=== PATIENT | male | born 1975 | race Caucasian/White ===

== ENCOUNTER 2018-06-18 11:58 | Emergency (ER) | payer OTHER, SELFPAY ==
[2018-06-18 11:59] VITALS: BP 114/84; PULSE 120; RESP 18; TEMP 36.1; O2SAT 98; BMI 31.0
[2018-06-18] MEDS: Diphth,Pertuss(Acell),Tet Vac 0.5 ML Vial IM (13:11)
[2018-06-18] MEDS: Lidocaine/Epi/Tetracaine 50 ML 1 APPLIC TOPICAL (13:12)
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
[2018-06-18] MEDS: Cephalexin 250 MG Capsule 500 MG PO (16:00)
[2018-06-18 16:01] VITALS: PULSE 82; RESP 16; O2SAT 99
== END 2018-06-18 16:01 | disposition home or self-care (01) ==
PROVIDERS: Emergency Provider Emergency Medicine; Family Provider Family Medicine; PCP Family Medicine
DX: S61.411A Laceration without foreign body of right hand, initial encounter (principal); Y08.09XA Assault by strike by other specified type of sport equipment, initial encounter; Y93.9 Activity, unspecified; Y92.9 Unspecified place or not applicable; Y99.9 Unspecified external cause status; Z23 Encounter for immunization; I10 Essential (primary) hypertension; F17.200 Nicotine dependence, unspecified, uncomplicated
CPT/HCPCS: 12002; 90715; 99285

== ENCOUNTER 2019-02-20 23:29 | Emergency (ER) | payer OTHER, SELFPAY ==
[2019-02-20 23:30] VITALS: BP 129/93; PULSE 109; RESP 16; TEMP 37.3; O2SAT 99; BMI 31.0
--- NOTE | 2019-02-20 23:39 | ED.RN ---
FAMILY OF PT ASKED FOR WATER FOR THIS PT, REQUEST WAS DECLINED DUE TO NOT HAVING BEEN SEEN BY A PHYSICIAN YET
--- NOTE | 2019-02-21 00:02 | ED.VISSUMM ---
- ER Visit Summary Date of Service: 02/21/19 Chief Complaint: Back pain History of Present Illness: The patient is a 43 M with left lower back pain for the last for 5 days. Is been taking aspirin and baclofen. He states tonight he stood up from the sofa and had sudden worsening pain shooting down into his leg with some numbness. He states he is unable to walk on that leg currently. Patient was previously in pain management for back pain. He denies having any prior surgeries or injections. Physical Examination: Blood pressure is 120/93, temperature 99.2, heart rate 109, respiratory rate 16, pulse ox 99% on room air. The patient does smell of alcoholic beverage and admits to approximately 6 beers tonight. Head and neck examination unremarkable. Heart is regular rate and rhythm. Lung sounds are clear pedal and abdomen is soft and nontender. No palpable masses are noted. Back examination was no midline lumbar tenderness. He does have reproducible tenderness of the left lumbar paraspinal muscles. Lower extremity examination revealed decreased sensation to light touch on the left leg compared to right. He has strong distal pulses. Test Results: Emergency Department Course and Treatment: Patient was given 0.5 mg of Dilaudid along with 4 mg of Zofran. On repeat evaluation he is sitting upright. He is able to pull both feet up to put socks on. He feels much improved. He has baclofen at home that he will continue. He will be given a short course of Percocet along with prednisone to help with sciatica. Treatment Plan: [] Disposition: Discharge Impression: Sciatica This note was generated with [employer] dictation software. It may contain incorrect words, spelling, and punctuation that were not noted in review of the chart prior to signing ED Disposition - Plan for ED Patient: Disposition: Home or Assisted Living Instructions: ED Sciatica Prescriptions: Oxycodone HCl/Acetaminophen [Percocet 5/325] 1 tablet PO Q6H PRN PRN 3 Days #12 tablet PRN Reason: Pain Prednisone [Deltasone] 40 mg PO DAILY #10 tablet Referrals: Colin Santana MD [Primary Care Provider] - 1 Week if not improving
[2019-02-21] MEDS: Ondansetron 4 MG/2 ML Vial IV (00:05)
[2019-02-21] MEDS: HYDROmorphone 1 MG/ML Syringe 0.5 MG IV (00:05)
[2019-02-21] MEDS: 0.9% Normal Saline 1,000 ML 150 ML IV (00:05)
[2019-02-21 00:20] LABS: Absolute Lymphocyte Count 1.52 X10^3/ul (0.83-4.51); Absolute Neutrophil Count 3.5 X10^3/uL (2.0-7.7); Basophil# 0.04 X10^3/uL; Basophil% 0.7 % (0-1); Eosinophil# 0.06 X10^3/uL; Hematocrit 42.4 % (40-54); Lymphocyte # 1.52 X10^3/ul (4.0); Lymphocyte % 25.7 % (19-41); Mean Corp Hgb Conc 35.4 g/gl (32-36); Mean Corpuscular Hgb 31.8 pg (27.0-32.0); Mean Corpuscular Volume 89.8 fL (80-94); Mean Platelet Vol. 10.4 fl (6.2-12.0); Monocyte# 0.77 X10^3/uL; Neutrophil # 3.51 X10^3/uL (2.7-7.7); Neutrophil % 59.4 % (47-70); Platelet Count 181 K/mm3 (150-450); RBC Distribution Width CV 12.2 % (11.6-14.6); RBC Distribution Width SD 39.7 fl (35.1-43.9); Red Blood Count 4.72 M/mm3 (4.6-6.2); White Blood Count 5.9 K/mm3 (4.4-11.0)
[2019-02-21 00:21] LABS: POSITIVE COUNT NO; POSITIVE DIFFERENTIAL NO; POSITIVE MORPHOLOGY NO
[2019-02-21 00:35] LABS: Anion Gap 14 (5-15); BUN 13 mg/dL (7-18); BUN/Creat Ratio 14.3 RATIO (10-20); Calcium,Total 9.1 mg/dL (8.5-10.1); Chloride 106 mmol/L (98-107); Creatinine, Serum 0.91 mg/dL (0.70-1.30); EST Glomerular Filtration Rate 97 mL/min (>60); Est Glom Filt Rate - Afr Amer 118 mL/min (>60); Estimated Creatinine Clearance 105.75 ml/min; Glucose 106 mg/dL (74-106); Potassium 3.3 mmol/L (3.5-5.1); Sodium Level 143 mmol/L (136-145)
[2019-02-21 01:29] VITALS: BP 122/86; PULSE 101; RESP 19; O2SAT 96
[2019-02-21 02:11] VITALS: BP 126/80; PULSE 99; RESP 17; O2SAT 96
== END 2019-02-21 02:12 | disposition home or self-care (01) ==
PROVIDERS: Emergency Provider Emergency Medicine; Family Provider Family Medicine; PCP Family Medicine
DX: M54.42 Lumbago with sciatica, left side (principal); I10 Essential (primary) hypertension; Z72.0 Tobacco use; Z79.899 Other long term (current) drug therapy
CPT/HCPCS: 80048; 85025; 96361; 96374; 96375; 99285; J7030; A4216; J2405

== ENCOUNTER 2019-03-09 11:17 | Emergency (ER) | payer MEDICAID, SELFPAY ==
[2019-03-09 11:17] VITALS: BP 147/97; PULSE 120; RESP 20; TEMP 36.6; O2SAT 100; BMI 31.0
--- NOTE | 2019-03-09 11:34 | ED.VIS.GEN ---
History of Present Illness Chief Complaint: Back Detail of Chief Complaint: Back pain Informant: Patient, Family Onset: Weeks - 2.5 Current Severity: Severe Maximum Severity: Severe Associated Symptoms: Decreased sensation to light touch left leg Narrative: Patient presents with 2 and half week history of left lower back pain. Patient had previously been in pain management but denies history of injections or surgery. He was seen in the ER 2-1/2 weeks ago after standing from the sulfa and developing sudden pain to the left lower back shooting down the left leg. There is no direct injury. Patient improved with Dilaudid, Zofran, and steroids. He was discharged with Percocet and steroids. 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 He has had worsening pain since that time. He is on baclofen daily for spasm. He is reportedly scheduled to see his family doctor tomorrow. He has had no new injury to his back. He denies fever or chills. No problems with bowel or bladder control. Prior similar symptoms: Yes - Past Medical History (1) Back pain Status: Acute (2) HTN (hypertension) Status: Chronic (3) History of tobacco use Status: Chronic Past Medical History - Allergies and Home Meds Allergies/Adverse Reactions: Allergies No Known Allergies Allergy (Verified 06/18/18 12:01) Primary Care Physician: Colin Santana MD [Primary Care Provider] - Prior records reviewed: Yes Past Medical History: - - Reviewed Surgical History: no surgical history, - - Denies prior back surgery or injections. Lives: With Family Smoking Status: Current some day smoker - Family History Paternal Family History: Reports: Stroke Maternal Family History: Reports: Stroke, - - migraine Review of Systems General: Denies: Chills, Fever Cardiovascular: Denies: Chest pain, Palpitations Respiratory: Denies: Dyspnea, Cough Gastrointestinal: Denies: Abdominal pain, Nausea, Vomiting, Diarrhea Genitourinary: Denies: Dysuria, Hematuria Musculoskeletal: Reports: Back pain Neurological: Reports: Numbness Physical Exam Vital Signs/Narrative: Vital Signs Temp Pulse Resp BP Pulse Ox 03/09/19 11:17 97.9 F 120 H 20 H 147/97 H 100 Inital Vital Signs reviewed: Yes General: Well nourished, Well developed Eyes: Perrl Neck: Supple Cardiovascular: Regular rhythm, Tachycardia Respiratory: No distress, CTA bilaterally Abdomen: Soft, Nontender, Normal bowel sounds. Negative for: Pulsatile mass Back: - - No midline thoracic or lumbar tenderness. He has reproducible tenderness of the left sciatic notch. Extremities: Nontender, No edema Skin: Normal color, No rash, - - Strong distal pulses Neurological: Alert, - - Patient reports decreased sensation to light touch throughout the left leg. Patellar reflexes are 1+ bilaterally. Psychological: - - Anxious Diagnostic/Tx/Re-eval - Medical Decision Making Patient was initially given IM Dilaudid and prednisone here. After 1 hour pain was improved to an 8. Heart rate was improved. He was given a second dose of Dilaudid. At this time patient is able to stand at bedside and stretch his back. He will be given a prescription for Percocet and a prednisone taper. He will follow-up with his primary care physician tomorrow as scheduled. Advised him that he may require physical therapy for his back. ED Disposition - Plan for ED Patient: Disposition: Home or Assisted Living Instructions: BACK PAIN w/ SCIATICA Prescriptions: Oxycodone HCl/Acetaminophen [Percocet 5/325] 1 tablet PO Q6H PRN PRN 5 Days #20 tablet PRN Reason: Pain Prednisone 10 mg PO DAILY #63 tablet Referrals: Colin Santana MD [Primary Care Provider] - Keep Umair appointment
[2019-03-09] MEDS: predniSONE 20 MG Tablet 60 MG PO (11:45)
[2019-03-09] MEDS: HYDROmorphone 1 MG/ML Syringe IM ×2 (11:46→13:12)
[2019-03-09 12:53] VITALS: BP 128/89; PULSE 83; RESP 16; O2SAT 100
[2019-03-09 14:06] VITALS: BP 122/74; PULSE 78; RESP 16; O2SAT 99
== END 2019-03-09 14:07 | disposition home or self-care (01) ==
PROVIDERS: Emergency Provider Emergency Medicine; Family Provider Family Medicine; PCP Family Medicine
DX: M54.42 Lumbago with sciatica, left side (principal); I10 Essential (primary) hypertension; F17.200 Nicotine dependence, unspecified, uncomplicated; Z79.82 Long term (current) use of aspirin; Z79.899 Other long term (current) drug therapy
CPT/HCPCS: 96372; 99282

== ENCOUNTER 2020-04-16 13:27 | Inpatient (IN) | payer SELFPAY ==
[2020-04-16] VITALS (9 sets, daily range): BP systolic 121–144; BP diastolic 76–95; PULSE 68–110; RESP 16–22; TEMP 36.3–37.2; O2SAT 97–100; BMI 28.7; BMI 28.0
--- NOTE | 2020-04-16 13:42 | RAD_ITS ---
STUDY: X-RAY CHEST REASON FOR EXAM: Male, 45 years old. Dyspnea. Sternal chest pain. TECHNIQUE: Single AP portable view of the chest. COMPARISON: Comparison is made with prior study dated 03/11/2017. FINDINGS: EKG electrodes are seen. Mild increased markings in the lingular segment of the left upper lobe. This may represent an early infiltrate. There is no demonstrated pleural abnormality. Normal size heart. Normal mediastinum and yudith. Normal visualized pulmonary arteries. Normal visualized aortic arch and descending thoracic aorta. There are mild degenerative changes of the visualized thoracic spine. Normal visualized ribs, clavicles, and shoulders. There is no demonstrated abnormality of the visualized soft tissue structures of the upper abdomen. RAD/Chest 1 View (Portable) IMPRESSION: Mild increased markings in the lingular segment of the left upper lobe suggestive of possible early infiltrate. Electronically Signed: Hema Wilson, at 15:21 EDT , Service support ,
--- NOTE | 2020-04-16 13:43 | EKG12_ITS ---
Test Reason : SOB Blood Pressure : / mmHG Vent. Rate : 081 BPM Atrial Rate : 081 BPM P-R Int : 096 ms QRS Dur : 078 ms QT Int : 390 ms P-R-T Axes : 000 008 033 degrees QTc Int : 453 ms Sinus rhythm with short TX Otherwise normal ECG Confirmed by TAISHA FONTANA ([id number]), news assignment editor SHERICE MCCORD ([id number]) on 04/19/2020 10:24:30 AM Referred By: TAMAR Confirmed By:TAISHA FONTANA
--- NOTE | 2020-04-16 13:45 | ED.VIS.GEN ---
History of Present Illness Chief Complaint: Chest Pain Narrative: This patient is a 45-year-old male who had sudden onset shortness of breath nausea diaphoresis and dizziness. He denies chest pain. He has had diarrhea for about a week. He does complain of runny nose and cough today. He denies history of heart disease. He is treated for hypertension. He is an occasional alcohol drinker not a daily drinker. He states he has never been in alcohol withdrawal. Past Medical History - Allergies and Home Meds Allergies/Adverse Reactions: Allergies No Known Allergies Allergy (Verified 04/16/20 13:28) Primary Care Physician: Colin Santana MD [Primary Care Provider] - Past Medical History: - - Hypertension Surgical History: no surgical history, - - Denies prior back surgery or injections. Smoking Status: Current some day smoker - Family History Paternal Family History: Reports: Stroke Maternal Family History: Reports: Stroke, - - migraine Review of Systems All systems negative except as indicated General: Denies: Fever Eyes: Denies: Visual changes - bilaterally ENT: Denies: Bilateral ear pain Cardiovascular: Reports: - - Dizziness/near syncope. Denies: Chest pain Respiratory: Reports: Dyspnea, Cough Gastrointestinal: Reports: Nausea, Diarrhea. Denies: Abdominal pain, Vomiting Musculoskeletal: Denies: Myalgias, Arthralgias, Extremity Pain Skin: Denies: Rash Neurological: Denies: Headache Allergy: Denies: Uticaria Physical Exam Vital Signs/Narrative: Vital Signs Temp Pulse Resp BP Pulse Ox 04/16/20 13:29 98.6 F 92 22 H 144/95 H 97 Inital Vital Signs reviewed: Yes General: Well nourished Head: Normocephalic Eyes: EOMI ENT: Moist mucous membranes Neck: Supple Cardiovascular: Regular rhythm, Tachycardia Respiratory: No distress, CTA bilaterally Abdomen: Soft, Nontender, Nondistended Skin: Diaphoresis, - - Patient is markedly diaphoretic Neurological: Alert, Oriented x3, - - Patient does not have focal or lateralizing neurological deficits but a severe tremor is noted Psychological: - - Patient appears anxious Diagnostic/Tx/Re-eval Impressions Chest X-Ray 04/16/20 13:42 IMPRESSION: Mild increased markings in the lingular segment of the left upper lobe suggestive of possible early infiltrate. Electronically Signed: Hema Wilson, at 15:21 EDT , Service support , 04/16/20 13:42 Chest 1 View (Portable) [RAD] Stat Laboratory Results 04/16/20 04/16/20 04/16/20 13:35 13:35 13:35 WBC 4.6 RBC 4.58 L Hgb 15.0 Hct 43.5 MCV 95.0 H MCH 32.8 H MCHC 34.5 RDW Std Deviation 43.7 RDW Coeff of Raz 12.5 Plt Count 193 MPV 10.3 Immature Gran % (Auto) 0.200 Neut % (Auto) 63.4 Lymph % (Auto) 21.0 [place] % (Auto) 14.1 H Eos % (Auto) 0.2 Baso % (Auto) 1.1 H Absolute Neuts (auto) 2.9 Absolute Lymphs (auto) 0.97 Nucleated RBC % 0 PT 12.5 INR 1.0 APTT 25.5 Sodium 138 Potassium 3.6 Chloride 102 Carbon Dioxide 26.0 Anion Gap 10 BUN 7 Creatinine 0.80 Estim Creat Clear Calc 117.83 Est GFR (MDRD) Af Amer 135 Est GFR (MDRD) Non-Af 112 BUN/Creatinine Ratio 8.8 L Glucose 121 H Lactic Acid Calcium 9.7 Total Bilirubin 0.60 AST 163 H ALT 141 H Alkaline Phosphatase 58 Troponin I < 0.015 Total Protein 8.1 Albumin 4.6 Globulin 3.5 Albumin/Globulin Ratio 1.3 Lipase 177 Urine Opiates Screen Urine Methadone Screen Ur Barbiturates Screen Ur Phencyclidine Scrn Ur Amphetamines Screen U Methamphetamin-MDMA U Benzodiazepines Scrn Urine Cocaine Screen U Cannabinoids Screen Ur Drug Screen Comment Ethyl Alcohol 04/16/20 04/16/20 04/16/20 14:25 14:25 14:39 WBC RBC Hgb Hct MCV MCH MCHC RDW Std Deviation RDW Coeff of Raz Plt Count MPV Immature Gran % (Auto) Neut % (Auto) Lymph % (Auto) [place] % (Auto) Eos % (Auto) Baso % (Auto) Absolute Neuts (auto) Absolute Lymphs (auto) Nucleated RBC % PT INR APTT Sodium Potassium Chloride Carbon Dioxide Anion Gap BUN Creatinine Estim Creat Clear Calc Est GFR (MDRD) Af Amer Est GFR (MDRD) Non-Af BUN/Creatinine Ratio Glucose Lactic Acid 6.2 H* Calcium Total Bilirubin AST ALT Alkaline Phosphatase Troponin I Total Protein Albumin Globulin Albumin/Globulin Ratio Lipase Urine Opiates Screen NEGATIVE Urine Methadone Screen NEGATIVE Ur Barbiturates Screen NEGATIVE Ur Phencyclidine Scrn NEGATIVE Ur Amphetamines Screen NEGATIVE U Methamphetamin-MDMA NEGATIVE U Benzodiazepines Scrn NEGATIVE Urine Cocaine Screen NEGATIVE U Cannabinoids Screen POSITIVE H Ur Drug Screen Comment Ethyl Alcohol 8.0 - Medical Decision Making On initial presentation patient was markedly diaphoretic and tremulous. I considered acute alcohol withdrawal although the patient states he is not a daily drinker. He was given 2 mg of IV Ativan with marked improvement. Able initial EKG was limited due to artifact but showed no evidence of STEMI. Repeat EKG shows sinus rhythm with short MO no acute ischemic changes. Laboratory studies as above are notable for lactic acidosis of 6.2. Chest x-ray shows possible early infiltrate. COVID swab was ordered. Repeat lactic acid pending I have also ordered blood cultures and IV Levaquin. Patient was discussed with hospitalist. He asked that we repeat a lactic acid now and wants to wait on the COVID resolved before determining disposition to what unit. Patient will need to be signed out to the oncoming emergency physician pending final disposition plan per hospitalist. ED Disposition - Plan for ED Patient: Disposition: Acute Care Hospital [facility] Diagnosis: Lactic acidosis, Pneumonia, Diaphoresis Referrals: Colin Santana MD [Primary Care Provider] -
[2020-04-16 13:57] LABS: Absolute Lymphocyte Count 0.97 X10^3/uL (0.83-4.51); Absolute Neutrophil Count 2.9 X10^3/uL (2.0-7.7); Basophil# 0.05 X10^3/uL; Basophil% 1.1 % (0-1); Eosinophil# 0.01 X10^3/uL; Eosinophils% 0.2 % (0-5); Hematocrit 43.5 % (40-54); Lymphocyte # 0.97 X10^3/ul (4.0); Mean Corp Hgb Conc 34.5 g/dL (32-36); Mean Corpuscular Hgb 32.8 pg (27.0-32.0); Mean Platelet Vol. 10.3 fl (6.2-12.0); Monocyte# 0.65 X10^3/uL; Monocyte% 14.1 % (0-10); NRBC Flagged by Analyzer 0 % (0-5); Neutrophil # 2.93 X10^3/uL (2.7-7.7); Neutrophil % 63.4 % (47-70); Platelet Count 193 K/mm3 (150-450); RBC Distribution Width CV 12.5 % (11.6-14.6); RBC Distribution Width SD 43.7 fl (35.1-43.9); Red Blood Count 4.58 M/mm3 (4.6-6.2); White Blood Count 4.6 K/mm3 (4.4-11.0)
[2020-04-16] MEDS: LORazepam 2 MG/ML Syringe IV (14:04)
[2020-04-16] MEDS: 0.9% Normal Saline 1,000 ML 1000 ML IV (14:05)
[2020-04-16] MEDS: Ondansetron 4 MG/2 ML Vial IV (14:05)
[2020-04-16 14:06] LABS: Prothrombin Time (Protime)PT. 12.5 SECONDS (11.7-14.9)
[2020-04-16 14:07] LABS: Partial Thromboplast Time 25.5 Seconds (24.1-36.2)
[2020-04-16 14:15] LABS: ALB/GLOB Ratio 1.3 RATIO (0.9-2.4); AST(SGOT) 163 U/L (15-37); Alanine Aminotransfer ALT/SGPT 141 U/L (16-61); Albumin, Serum 4.6 g/dL (3.2-5.0); Alkaline Phosphatase 58 U/L (45-117); Anion Gap 10 (5-15); BUN 7 mg/dL (7-18); BUN/Creat Ratio 8.8 RATIO (10-20); Calcium,Total 9.7 mg/dL (8.5-10.1); Chloride 102 mmol/L (98-107); EST Glomerular Filtration Rate 112 mL/min (>60); Est Glom Filt Rate - Afr Amer 135 mL/min (>60); Estimated Creatinine Clearance 117.83 ml/min; Globulin 3.5 g/dL (2.2-4.2); Glucose 121 mg/dL (74-106); Lipase 177 U/L (73-393); Potassium 3.6 mmol/L (3.5-5.1); Protein, Total 8.1 g/dL (6.4-8.2); Sodium Level 138 mmol/L (136-145)
[2020-04-16 14:59] LABS: Lactic Acid 6.2 mmol/L (0.4-1.9)
[2020-04-16 15:02] LABS: Amphetamine Urine VISTA NEGATIVE (<1000 ng/mL); Barbiturate Urine VISTA NEGATIVE (< 200 ng/mL); Benzodiazepine Urine VISTA NEGATIVE (< 200 ng/mL); Cocaine Urine VISTA NEGATIVE (< 300 ng/mL); Ecstacy Urine VISTA NEGATIVE (< 500 ng/mL); Methadone Urine VISTA NEGATIVE (< 300 ng/mL); PCP Urine VISTA NEGATIVE (< 25 ng/mL); THC Urine VISTA POSITIVE (< 50 ng/mL); Vista UDS pH Range 7
--- NOTE | 2020-04-16 15:40 | NURSING ---
DR DEL VALLE FOR DR BOYLE
--- NOTE | 2020-04-16 15:58 | ED.RN ---
pt does admit to drinking at leat 2 bottles of vodka daily.
--- NOTE | 2020-04-16 16:04 | HP.PCM_ITS ---
<Chris Ortega - Last Filed: 04/16/20 16:04> Problem List (1) Alcohol withdrawal Status: Acute (2) Lactic acidosis Status: Chronic (3) HTN (hypertension) Status: Chronic Qualifiers: Hypertension type: essential hypertension Qualified Code(s): I10 - Essential (primary) hypertension (4) History of tobacco use Status: Chronic History of Present Illness Date of Admission: 04/16/20 Chief Complaint: chest pain The patient is a 45 year old M with pmhx of TIA and HTN who initially presented to the ER with c/o chest pain. 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 This was a sharp somewhat left of midsternal pain. It began this AM he is not sure when. He broke out in a sweat and severe tremors. He has had nausea and vomiting. While initially concern for chest pain, he later admitted that he had been drinking heavily. His son reported he was drinking multiple bottles of vodka daily tho he initially told the ER staff only 2-3 beers per day. He did admit that his son was correct. On ROS he also reports this week he has had nausea, vomiting (including today in the ER), diarrhea, lightheadedness, cough. No fever/chills. No sick contacts. He has a large bruise on his right arm that he states was from [place]. [] Past Medical History Past Medical History (Chronic Problems): Chronic Problems HTN (hypertension) (Chronic) History of tobacco use (Chronic) Allergies No Known Allergies Allergy (Verified 04/16/20 13:28) Home Medications: Ambulatory Orders Medication Instructions Recorded Amlodipine [Norvasc] 5 mg PO DAILY 08/02/13 Aspirin 325 mg PO DAILY@0800 07/21/16 Amlodipine [Norvasc] 2.5 mg PO DAILY 04/16/20 Sertraline HCl 100 mg PO DAILY 04/16/20 Surgical History: no surgical history, - - Denies prior back surgery or injections. Psychiatric History: No pertinent psych hx Lives: Alone Smoking Status: Current every day smoker - 6 cigarettes per day Tobacco Use: Non-smoker, Chew Alcohol: Heavy Drugs: Marijuana - *Family History Paternal History Items: Stroke Maternal History Items: Stroke, - - migraine Review of Systems Constitutional: Denies: Chills, Fever, Weight Change HEENT: Denies: Head Aches, Sinus Congestion, Sinus Drainage Cardiovascular: Reports: Chest Pain, Light Headedness. Denies: Heaviness, Palpitations, Syncope Respiratory: Reports: Cough, Shortness of Breath, Sputum production. Denies: Shortness of breath at rest Gastrointestinal: Reports: Diarrhea, Nausea, Vomiting. Denies: Abdominal Pain Genitourinary: Denies: Dysuria, Frequency, Urgency Musculoskeletal: Reports: - - RUE pain, bruising. Denies: Joint Pain, Joint Tenderness Skin: Denies: Lesions, Rash, Wounds Neurological: Reports: Tremor. Denies: Balance problems, Focal weakness, Headaches, Numbness, Tingling, Seizures Psychiatric: Denies: Anxiety, Depression, Homicidal Ideations, Suicidal Ideations Hematologic/ Lymphatic: Denies: Easy Bruising, Easy Bleeding VTE Information - Inpt Only VTE Present on Admission: No VTE Mechan Device Prophylaxis: None VTE Pharm Prophylaxis ordered?: Yes Patient Problems: Active and Suspected Problems Chest pain (Acute) Alcohol withdrawal (Acute) Lactic acidosis (Acute) - Physical Exam Vitals/I&O's: Vital Signs Temp Pulse Resp BP Pulse Ox 97.3 F L 73 16 124/76 H 98 04/16/20 15:13 04/16/20 15:13 04/16/20 15:13 04/16/20 15:13 04/16/20 15:13 Oxygen Delivery Method Room Air Weight: 194 lb 7.163 oz Body Mass Index (BMI) 28.7 Finger Stick Blood Glucose 92 General: Alert, Oriented x3, Cooperative HEENT: Atraumatic, PERRLA, EOMI, Normocephalic Neck: Supple, No JVD, Negative Carotid Bruits Lungs: Clear to auscultation, Normal air movement Cardiovascular: Regular rate, No murmurs Abdomen: Bowel Sounds Present, Soft, Non Tender Extremities: No edema, Capillary Refill Less than 3 Seconds Skin: No rashes, No breakdown Musculoskeletal: No Tenderness to Palpation of Joints or Extremities Neurological: Cranial nerves II-XII grossly intact, - - upper ext tremor Psych/Mental Status: Normal Affect, Alert and oriented to time, place, person, mood and affect Laboratory Results 04/16/20 13:35: WBC 4.6, RBC 4.58 L, Hgb 15.0, Hct 43.5, MCV 95.0 H, MCH 32.8 H, MCHC 34.5, RDW Std Deviation 43.7, RDW Coeff of Raz 12.5, Plt Count 193, MPV 10.3, Immature Gran % (Auto) 0.200, Neut % (Auto) 63.4, Lymph % (Auto) 21.0, [place] % (Auto) 14.1 H, Eos % (Auto) 0.2, Baso % (Auto) 1.1 H, Absolute Neuts (auto) 2.9, Absolute Lymphs (auto) 0.97, Nucleated RBC % 0 04/16/20 13:35: PT 12.5, INR 1.0, APTT 25.5 04/16/20 13:35: Sodium 138, Potassium 3.6, Chloride 102, Carbon Dioxide 26.0, Anion Gap 10, BUN 7, Creatinine 0.80, Estim Creat Clear Calc 117.83, Est GFR (MDRD) Af Amer 135, Est GFR (MDRD) Non-Af 112, BUN/Creatinine Ratio 8.8 L, Glucose 121 H, Calcium 9.7, Total Bilirubin 0.60, AST 163 H, ALT 141 H, Alkaline Phosphatase 58, Troponin I < 0.015, Total Protein 8.1, Albumin 4.6, Globulin 3.5, Albumin/Globulin Ratio 1.3, Lipase 177 04/16/20 14:25: Ethyl Alcohol 8.0 04/16/20 14:25: Lactic Acid 6.2 H* 04/16/20 14:39: Urine Opiates Screen NEGATIVE, Urine Methadone Screen NEGATIVE, Ur Barbiturates Screen NEGATIVE, Ur Phencyclidine Scrn NEGATIVE, Ur Amphetamines Screen NEGATIVE, U Methamphetamin-MDMA NEGATIVE, U Benzodiazepines Scrn NEGATIVE, Urine Cocaine Screen NEGATIVE, U Cannabinoids Screen POSITIVE H, Ur Drug Screen Comment Current Medications Sodium Chloride () 1,000 mls @ 999 mls/hr IV .Q1H1M ONE Stop: 04/16/20 16:30 Levofloxacin (Levaquin Iv) 750 mg in 150 mls @ 100 mls/hr IV X1 ONE Stop: 04/16/20 16:59 Sodium Chloride () 1,000 mls @ 999 mls/hr IV .Q1H1M ONE Stop: 04/16/20 16:31 Assessment/Plan All Active Problems Chest pain (Acute) Alcohol withdrawal (Acute) Lactic acidosis (Acute) 1. Alcoholism with acute withdrawal - drinking multiple bottles of vodka and beer daily. tremulous. EtOH neg. Initiate phenobarb taper, thiamine, folate, CIWA protocol. Suspect lactic acidosis 2/2 severe uncontrollable tremor, improving. Recheck LA. Tox screen shows THC. Lipase neg. 2. Chest pain - EKG sinus tachy. Trop neg. CXR possible PETER infiltrate but doubt pna with no fever/leukocytosis. Cycle enzymes, repeat EKG in AM. Get stress test if he is able to complete it. He has multiple risk factors including HTN, HLD, TIA, smoking hx 3. RUE hematoma 2/2 fall 4. Hx TIA - aspirin, not on statin 5. HTN - amlodipine 6. Nicotine abuse - 6 cigarettes per day. patch if desired. 7. Anx/Depression - zoloft. DVT ppx: lovenox DC planning: referral to 180 program This patient was seen by Chris Ortega PA-C under the supervision of Dr. Kaba <Abi Kaba E - Last Filed: 04/16/20 16:42> History of Present Illness The patient is a 45 year old M [] Past Medical History Allergies No Known Allergies Allergy (Verified 04/16/20 13:28) - Physical Exam Vitals/I&O's: Vital Signs Temp Pulse Resp BP Pulse Ox 97.3 F L 74 20 H 133/93 H 100 04/16/20 15:13 04/16/20 16:06 04/16/20 16:06 04/16/20 16:06 04/16/20 16:06 Oxygen Delivery Method Room Air Weight: 194 lb 7.163 oz Body Mass Index (BMI) 28.7 Finger Stick Blood Glucose 92 Laboratory Results 04/16/20 13:35: WBC 4.6, RBC 4.58 L, Hgb 15.0, Hct 43.5, MCV 95.0 H, MCH 32.8 H, MCHC 34.5, RDW Std Deviation 43.7, RDW Coeff of Raz 12.5, Plt Count 193, MPV 10.3, Immature Gran % (Auto) 0.200, Neut % (Auto) 63.4, Lymph % (Auto) 21.0, [place] % (Auto) 14.1 H, Eos % (Auto) 0.2, Baso % (Auto) 1.1 H, Absolute Neuts (auto) 2.9, Absolute Lymphs (auto) 0.97, Nucleated RBC % 0 04/16/20 13:35: PT 12.5, INR 1.0, APTT 25.5 04/16/20 13:35: Sodium 138, Potassium 3.6, Chloride 102, Carbon Dioxide 26.0, Anion Gap 10, BUN 7, Creatinine 0.80, Estim Creat Clear Calc 117.83, Est GFR (MDRD) Af Amer 135, Est GFR (MDRD) Non-Af 112, BUN/Creatinine Ratio 8.8 L, Glucose 121 H, Calcium 9.7, Total Bilirubin 0.60, AST 163 H, ALT 141 H, Alkaline Phosphatase 58, Troponin I < 0.015, Total Protein 8.1, Albumin 4.6, Globulin 3.5, Albumin/Globulin Ratio 1.3, Lipase 177 04/16/20 14:25: Ethyl Alcohol 8.0 04/16/20 14:25: Lactic Acid 6.2 H* 04/16/20 14:39: Urine Opiates Screen NEGATIVE, Urine Methadone Screen NEGATIVE, Ur Barbiturates Screen NEGATIVE, Ur Phencyclidine Scrn NEGATIVE, Ur Amphetamines Screen NEGATIVE, U Methamphetamin-MDMA NEGATIVE, U Benzodiazepines Scrn NEGATIVE, Urine Cocaine Screen NEGATIVE, U Cannabinoids Screen POSITIVE H, Ur Drug Screen Comment 04/16/20 15:48: COVID-19 ([facility]) Pending Current Medications Levofloxacin (Levaquin Iv) 750 mg in 150 mls @ 100 mls/hr IV X1 ONE Stop: 04/16/20 16:59 Last Admin: 04/16/20 16:09 Dose: 100 mls/hr Documented by: Assessment/Plan Hospitalist note: I am seeing this patient in conjunction with Chris Ortega. I independently seen and examined the patient. History and physical, laboratory data and imaging studies reviewed and I concur with above admission and treatment plan. Patient presented to the emergency room because of multiple complaints and he was not able to pinpoint what his main presenting complaint. 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 He reported associated nausea and vomiting as well. Also, he complained of chest pain, retrosternal chest pain, not radiating, associated with shortness of breath. Also, he complained of cough with shortness of breath. He denied fever chills. He had a large bruise on the right upper arm and he is stated that he had a fall onto the dock when he was swimming. In the emergency department, patient was afebrile, mild tachycardia, blood pressure stable, pulse ox is 97% on room air. Routine blood work was unremarkable. LFT revealed slightly elevated liver transaminases, otherwise normal. Lipase was normal. Lactic acid was 6.2. Urine drug screen was positive for cannabinoids, otherwise negative. Blood alcohol level is 8. C hest x-ray reviewed, revealed no acute infiltrate or consolidation. Officially, there were mentioned left upper lobe markings, possible early infiltrate which I doubt. Patient said 1 dose of IV Levaquin in the ED. Blood cultures done and he was given fluid bolus. COVID-19 PCR sent and it is pending. He is being admitted for acute alcohol withdrawal, lactic acidosis and chest pain. - Physical Exam General: Alert, Oriented x3, Cooperative, shakiness/tremors, restless. HEENT: Atraumatic, PERRLA, EOMI. Neck: Supple, No JVD, Negative Carotid Bruits, Trachea Midline, Thyroid Normal. Lungs: Clear to auscultation, Normal air movement, No rhonchi, No wheeze, No rales. Cardiovascular: Regular rate, Regular Rhythm, Normal S1, Normal S2, PMI Normal. Abdomen: Bowel Sounds Present, Soft, Non Tender, Non-Distended, No Hepato- splenomegaly. Extremities: No clubbing, No cyanosis, No edema. Large bruise on the right upper arm. Skin: No rashes, No breakdown Neurological: Cranial nerves are intact, neuro grossly intact. Assessment and plan: #1 acute alcohol withdrawal: Plan: Admit to PCU, cardiac monitoring, start phenobarbital taper, thiamine, folic acid, multivitamins, CIWA, PRN Catapres, B entyl, methocarbamol, Zofran, trazodone, consult 180 program. #2 lactic acidosis: Unclear etiology. At this time, I doubt pneumonia. Patient received 1 dose of IV Levaquin and IV fluid bolus in the ED for possible pneumonia and blood cultures done. He is afebrile, no leukocytosis. COVID-19 PCR is pending. Plan: Monitor blood culture, repeat lactic acid stat now, IV fluids, repeat chest x-ray tomorrow morning. #3 chest pain: Atypical. EKG revealed normal sinus rhythm, no acute segment changes. Plan: Cardiac monitoring, serial cardiac enzymes, repeat EKG tomorrow morning, nuclear stress test tomorrow morning if cardiac enzymes are negative. #4 other chronic medical problems: Stable, continue current medication as above. This note was generated with [employer] dictation software. It may contain incorrect words, spelling, and punctuation that were not noted in checking the note before signing. Inpatient E&M: 36119 Init Hosp L3
[2020-04-16] MEDS: levoFLOXacin IV 750 MG/150 ML BAG 100 MG IV (16:09)
[2020-04-16] MEDS: 0.9% Normal Saline 1,000 ML 999 ML IV ×2 (16:10→16:40)
--- NOTE | 2020-04-16 16:35 | NURSING ---
123 ASHELFAH ACUTE ALCOHOL WITHDRAWAL, LACTIC ACIDOSIS, CP
[2020-04-16 17:27] LABS: Lactic Acid 1.4 mmol/L (0.4-1.9)
[2020-04-16 18:28] LABS: Reflex Lactate? Y
[2020-04-16 21:01] LABS: Magnesium 1.7 mg/dL (1.6-2.6); Phosphorus 2.7 mg/dL (2.5-4.9)
[2020-04-16] MEDS: Ondansetron 8 MG Tablet PO (21:20)
[2020-04-16] MEDS: Pantoprazole Sodium 40 MG Tablet PO (21:20)
[2020-04-16] MEDS: Phenobarbital 32.4 MG Tablet 97.2 MG PO (21:30)
--- NOTE | 2020-04-16 22:34 | EKG12_ITS ---
Test Reason : CP Blood Pressure : / mmHG Vent. Rate : 066 BPM Atrial Rate : 066 BPM P-R Int : 148 ms QRS Dur : 090 ms QT Int : 426 ms P-R-T Axes : 046 016 024 degrees QTc Int : 446 ms Normal sinus rhythm Normal ECG When compared with ECG of 16-APR-2020 20:04, MANUAL COMPARISON REQUIRED, DATA IS UNCONFIRMED Confirmed by TAISHA FONTANA ([id number]), image editor SHERICE MCCORD ([id number]) on 04/19/2020 10:37:07 AM Referred By: Confirmed By:TAISHA FONTANA
[2020-04-16] MEDS: 0.9% Normal Saline 1,000 ML 100 ML IV (22:49)
[2020-04-16] MEDS: 0.9% Saline Lock 10 ML Syringe IV (22:50)
[2020-04-17] VITALS (9 sets, daily range): BP systolic 116–125; BP diastolic 70–95; PULSE 57–83; RESP 16–18; TEMP 36.4–37.3; O2SAT 98–100
[2020-04-17] MEDS: Phenobarbital 32.4 MG Tablet 64.8 MG PO ×6 (01:51→20:33)
--- NOTE | 2020-04-17 04:39 | EKG12_ITS ---
Test Reason : AM EKG Blood Pressure : / mmHG Vent. Rate : 054 BPM Atrial Rate : 054 BPM P-R Int : 152 ms QRS Dur : 094 ms QT Int : 464 ms P-R-T Axes : 044 019 013 degrees QTc Int : 440 ms Sinus bradycardia Otherwise normal ECG When compared with ECG of 16-APR-2020 20:05, MANUAL COMPARISON REQUIRED, DATA IS UNCONFIRMED Confirmed by TAISHA FONTANA ([id number]), film or videotape editor ISADORA REDD ([id number]) on 04/19/2020 1:27:57 PM Referred By: ELIGIO Confirmed By:TAISHA FONTANA
--- NOTE | 2020-04-17 05:55 | EKG12_ITS ---
Test Reason : SOB Blood Pressure : / mmHG Vent. Rate : 124 BPM Atrial Rate : 091 BPM P-R Int : 160 ms QRS Dur : 074 ms QT Int : 182 ms P-R-T Axes : 059 029 180 degrees QTc Int : 261 ms Normal Sinus Rhythm with electrical artifact Inferior-posterior infarct , age undetermined ST & T wave abnormality, consider lateral ischemia Abnormal ECG Confirmed by TAISHA FONTANA ([id number]), sound editor SHERICE MCCORD ([id number]) on 04/19/2020 10:25:24 AM Referred By: TAMAR Confirmed By:TAISHA FONTANA
[2020-04-17 05:58] LABS: Absolute Lymphocyte Count 0.85 X10^3/uL (0.83-4.51); Absolute Neutrophil Count 2.2 X10^3/uL (2.0-7.7); Basophil# 0.02 X10^3/uL; Basophil% 0.6 % (0-1); Eosinophils% 2.8 % (0-5); Hematocrit 40.2 % (40-54); Hemoglobin 13.9 g/dL (13.0-16.5); Lymphocyte # 0.85 X10^3/ul (4.0); Lymphocyte % 23.5 % (19-41); Mean Corp Hgb Conc 34.6 g/dL (32-36); Mean Corpuscular Hgb 32.7 pg (27.0-32.0); Mean Corpuscular Volume 94.6 fL (80-94); Mean Platelet Vol. 10.3 fl (6.2-12.0); Monocyte# 0.47 X10^3/uL; NRBC Flagged by Analyzer 0 % (0-5); Neutrophil # 2.16 X10^3/uL (2.7-7.7); Neutrophil % 59.8 % (47-70); Platelet Count 119 K/mm3 (150-450); RBC Distribution Width CV 12.2 % (11.6-14.6); RBC Distribution Width SD 42.8 fl (35.1-43.9); Red Blood Count 4.25 M/mm3 (4.6-6.2); White Blood Count 3.6 K/mm3 (4.4-11.0)
[2020-04-17 06:47] LABS: Anion Gap 4 (5-15); BUN 5 mg/dL (7-18); BUN/Creat Ratio 8.1 RATIO (10-20); Calcium,Total 8.1 mg/dL (8.5-10.1); Chloride 107 mmol/L (98-107); Creatinine, Serum 0.62 mg/dL (0.70-1.30); EST Glomerular Filtration Rate 151 mL/min (>60); Est Glom Filt Rate - Afr Amer 183 mL/min (>60); Estimated Creatinine Clearance 152.04 ml/min; Glucose 86 mg/dL (74-106); Potassium 3.4 mmol/L (3.5-5.1); Sodium Level 137 mmol/L (136-145)
[2020-04-17] MEDS: Aspirin 325 MG Tablet PO (06:51)
--- NOTE | 2020-04-17 10:13 | RAD_ITS ---
STUDY: X-RAY CHEST REASON FOR EXAM: Male, 45 years old. COUGH, QUESTIONABLE PNEUMONIA, ALCOHOL WITHDRAW TECHNIQUE: PA and lateral views of the chest. COMPARISON: Comparison is made with prior study dated 04/16/2020. FINDINGS: The lungs are clear and expanded. There is no demonstrated pleural abnormality. Normal size heart. Normal mediastinum and yudith. Normal visualized pulmonary arteries. Normal visualized aortic arch and descending thoracic aorta. Normal visualized thoracic spine. Normal visualized ribs, clavicles, and shoulders. There is no demonstrated abnormality of the visualized soft tissue structures of the upper abdomen. RAD/Chest PA and Lateral IMPRESSION: Normal x-ray examination of the chest. Electronically Signed: Hema Wilson, at 11:24 EDT , Service support ,
--- NOTE | 2020-04-17 10:30 | STRESSREP_ITS ---
Stress Test Report Date: 04-17-2020 Procedure: Exercise tolerance test/imaging study Indications: Chest pain Consent: Per the patient Procedure: The patient exercised on a Sonido protocol for 10 minutes completing Stage III and 1 minute of Stage IV achieving a peak heart rate of 166 bpm (94 % predicted maximal heart rate) with a peak blood pressure 180/82 mmHg and a peak MET capacity of 11 METs. The baseline ECG demonstrated sinus bradycardia. The peak exercise ECG demonstrated somatic/motion artifact with no obvious ECG changes. There were no cardiac dysrhythmias pretest, during exercise, or recovery. The functional capacity was considered good. There was no complaint of chest discomfort during exercise or recovery. The examination was discontinued secondary to dyspnea. Impression: 1. Technically adequate (percent predicted maximal heart rate greater than 85%) exercise tolerance test 2. Peak exercise ECG with somatic/motion artifact with no obvious ECG changes 3. There were no cardiac dysrhythmias pretest, during exercise, or recovery 4. Nuclear images pending Myocardial perfusion imaging study: Technique: The patient was injected with 12.0 mCi of technetium 99m Cardiolite and subsequently rest SPECT Cardiolite nuclear imaging was obtained in the horizontal long, vertical long, and short axis views. The patient exercised on a Sonido protocol for 10 minutes completing Stage III and 1 minute of Stage IV achieving a peak heart rate of 166 bpm (94 % predicted maximal heart rate) with a peak blood pressure 180/82 mmHg and a peak MET capacity of 11 METs. The patient was injected with 34.8 mCi of technetium 99m Cardiolite and subsequently stress SPECT Cardiolite nuclear imaging was obtained in the horizontal long, ve rtical long, and short axis views. A gated Cardiolite study at peak stress was obtained. Interpretation: Rest and stress SPECT Cardiolite nuclear imaging status post realignment, normalization, and attenuation correction, demonstrates the appearance of relative uniform tracer uptake and myocardial perfusion appearing within normal limits. There is end systolic thickening and brightening. The gated Cardiolite study demonstrates myocardial thickening and inward wall motion. The reported LVEF is 58 %. Impression: 1. Rest and stress SPECT Cardiolite nuclear imaging demonstrate relative un iform tracer uptake and myocardial perfusion appearing within normal limits. 2. The gated Cardiolite study reports an LVEF of 58 %. This note was generated with [employer] software. It may contain incorrect words, spelling, and punctuation that were not noted in checking the note before signing.
--- NOTE | 2020-04-17 10:49 | CASEMGMT ---
Addendum entered by Heather Wright 04/17/20 11:55: SW did ask patient about insurance. He said he does have health insurance and when he is discharged his ride will bring his card in to the hospital. Heather DAMON Original Note: Assessment- SW completed assessment with patient at bedside Living situation- Patient lives alone in a 1 story home. PCP: Dr Santana Specialists: None. He used to see pain management. Pharmacy: [facility] DME: None ADL's/IADL's: Independent. Patient works Past SNF/rehab: none Past HH: none LW: None POA: none Plan: SW met with patient introduced self and role at [facility]. SW asked patient about his alcohol history. He said he generally can drink alcohol and quit anytime with no withdrawal. SW asked if he has ever been anywhere for treatment. He said he has not as he doesn't really feel he needed it. He denied drinking more than normal. SW asked if he would like to talk with someone from [facility] regarding treatment. He said he would be open to SW giving him information so he can call if he feels he needs help. SW told him that would be fine and SW will give him some information. Heather DAMON
[2020-04-17] MEDS: Sertraline 100 MG Tablet PO (10:50)
[2020-04-17] MEDS: amLODIPine 5 MG Tablet PO (10:50)
[2020-04-17] MEDS: Thiamine Hydrochloride 100 MG Tablet PO (10:50)
[2020-04-17] MEDS: amLODIPine 2.5 MG Tablet PO (10:50)
[2020-04-17] MEDS: Multivitamins,Therapeutic Tablet 1 TABLET PO (10:50)
[2020-04-17] MEDS: Folic Acid 1 MG Tablet PO (10:50)
[2020-04-17] MEDS: Pantoprazole Sodium 40 MG Tablet PO ×2 (10:54→20:33)
--- NOTE | 2020-04-17 13:02 | PN_ITS ---
<Chris Ortega - Last Filed: 04/17/20 13:02> Patient Problems: Active and Suspected Problems Chest pain (Acute) Alcohol withdrawal (Acute) Lactic acidosis (Acute) Reason for Visit: chest pain Subjective: No cp. No cough/fevers chills. Tremor improved, mild this AM. No N/V/D. Stress test negative. Vitals/I&O's: Vital Signs Temp Pulse Resp BP Pulse Ox 98.4 F 80 16 116/71 100 04/17/20 10:45 04/17/20 10:45 04/17/20 10:45 04/17/20 10:45 04/17/20 10:45 Oxygen Delivery Method Room Air Weight: 190 lb 1.76 oz Body Mass Index (BMI) 28.0 Finger Stick Blood Glucose 92 Intake and Output for Last 24 Hours 04/15/20 04/16/20 04/17/20 23:59 23:59 23:59 Intake Total 3634.20 / 3634.20 1239.80 / 1239.80 Balance 3634.20 / 3634.20 1239.80 / 1239.80 General: Alert, Oriented x3, Cooperative HEENT: Atraumatic, PERRLA, EOMI, Normocephalic Neck: Supple, No JVD, Negative Carotid Bruits Lungs: Clear to auscultation, Normal air movement Cardiovascular: Regular rate, No murmurs Abdomen: Bowel Sounds Present, Soft, Non Tender Extremities: No edema, Capillary Refill Less than 3 Seconds Skin: No rashes, No breakdown Musculoskeletal: No Tenderness to Palpation of Joints or Extremities Neurological: Cranial nerves II-XII grossly intact, - - fine tremor BL UE Psych/Mental Status: Normal Affect, Appropriate, Alert and oriented to time, place, person, mood and affect Laboratory Results 04/16/20 13:35: WBC 4.6, RBC 4.58 L, Hgb 15.0, Hct 43.5, MCV 95.0 H, MCH 32.8 H, MCHC 34.5, RDW Std Deviation 43.7, RDW Coeff of Raz 12.5, Plt Count 193, MPV 10.3, Immature Gran % (Auto) 0.200, Neut % (Auto) 63.4, Lymph % (Auto) 21.0, [place] % (Auto) 14.1 H, Eos % (Auto) 0.2, Baso % (Auto) 1.1 H, Absolute Neuts (auto) 2.9, Absolute Lymphs (auto) 0.97, Nucleated RBC % 0 04/16/20 13:35: PT 12.5, INR 1.0, APTT 25.5 04/16/20 13:35: Sodium 138, Potassium 3.6, Chloride 102, Carbon Dioxide 26.0, Anion Gap 10, BUN 7, Creatinine 0.80, Estim Creat Clear Calc 117.83, Est GFR (MDRD) Af Amer 135, Est GFR (MDRD) Non-Af 112, BUN/Creatinine Ratio 8.8 L, Glucose 121 H, Calcium 9.7, Total Bilirubin 0.60, AST 163 H, ALT 141 H, Alkaline Phosphatase 58, Troponin I < 0.015, Total Protein 8.1, Albumin 4.6, Globulin 3.5, Albumin/Globulin Ratio 1.3, Lipase 177 04/16/20 14:25: Ethyl Alcohol 8.0 04/16/20 14:25: Lactic Acid 6.2 H* 04/16/20 14:39: Urine Opiates Screen NEGATIVE, Urine Methadone Screen NEGATIVE, Ur Barbiturates Screen NEGATIVE, Ur Phencyclidine Scrn NEGATIVE, Ur Amphetamines Screen NEGATIVE, U Methamphetamin-MDMA NEGATIVE, U Benzodiazepines Scrn NEGATIVE, Urine Cocaine Screen NEGATIVE, U Cannabinoids Screen POSITIVE H, Ur Drug Screen Comment 04/16/20 15:48: COVID-19 ([facility]) Negative 04/16/20 16:32: Lactic Acid 1.4 04/16/20 19:05: Lactic Acid 1.0 04/16/20 19:05: Troponin I < 0.015 04/16/20 19:05: Phosphorus 2.7, Magnesium 1.7 04/16/20 22:25: Troponin I < 0.015 04/17/20 05:24: WBC 3.6 L, RBC 4.25 L, Hgb 13.9, Hct 40.2, MCV 94.6 H, MCH 32.7 H, MCHC 34.6, RDW Std Deviation 42.8, RDW Coeff of Raz 12.2, Plt Count 119 L, MPV 10.3, Immature Gran % (Auto) 0.300, Neut % (Auto) 59.8, Lymph % (Auto) 23.5, [place] % (Auto) 13.0 H, Eos % (Auto) 2.8, Baso % (Auto) 0.6, Absolute Neuts (auto) 2.2, Absolute Lymphs (auto) 0.85, Nucleated RBC % 0 04/17/20 05:24: Sodium 137, Potassium 3.4 L, Chloride 107, Carbon Dioxide 26.0, Anion Gap 4 L, BUN 5 L, Creatinine 0.62 L, Estim Creat Clear Calc 152.04, Est GFR (MDRD) Af Amer 183, Est GFR (MDRD) Non-Af 151, BUN/Creatinine Ratio 8.1 L, Glucose 86, Calcium 8.1 L Current Medications Al Hydroxide/Mg Hydroxide (Mylanta Ii) 30 ml PO Q6H PRN PRN PRN Reason: dyspesia Amlodipine Besylate (Norvasc) 2.5 mg PO DAILY [facility] Last Admin: 04/17/20 10:50 Dose: 2.5 mg Documented by: Amlodipine Besylate (Norvasc) 5 mg PO DAILY [facility] Last Admin: 04/17/20 10:50 Dose: 5 mg Documented by: Aspirin (Aspirin) 325 mg PO DAILY@0800 [facility] Last Admin: 04/17/20 06:51 Dose: 325 mg Documented by: Dicyclomine HCl (Bentyl) 20 mg PO Q6H PRN PRN PRN Reason: abdominal discomfort Folic Acid (Folic Acid) 1 mg PO DAILY@0800 [facility] Last Admin: 04/17/20 10:50 Dose: 1 mg Documented by: Gabapentin (Neurontin) 300 mg PO Q8H PRN PRN PRN Reason: moderate to severe anxiety Hydroxyzine Pamoate (Vistaril Pamoate Capsule) 50 mg PO Q4H PRN PRN PRN Reason: mild anxiety Sodium Chloride () 250 mls @ 15 mls/hr IV .[id number] PRN PRN Reason: Saline Flush Sodium Chloride () 250 mls @ 15 mls/hr IV .[id number] PRN PRN Reason: Additional IVPB Infusion Ibuprofen (Motrin) 600 mg PO Q8H PRN PRN PRN Reason: Pain Score 1-10/10 Loperamide HCl (Imodium) 2 mg PO Q4H PRN PRN PRN Reason: LOOSE STOOLS [facility] ([facility]) [facility] Last Admin: 04/17/20 10:50 Dose: 1 tablet Documented by: Ondansetron HCl (Zofran) 8 mg PO Q8H PRN PRN PRN Reason: NAUSEA Last Admin: 04/16/20 21:20 Dose: 8 mg Documented by: Pantoprazole Sodium (Protonix) 40 mg PO BID [facility] Last Admin: 04/17/20 10:54 Dose: 40 mg Documented by: Phenobarbital (Phenobarbital) 97.2 mg PO Q4H [facility]; Taper Stop: 04/21/20 05:29 Last Admin: 04/17/20 10:53 Dose: 97.2 mg Documented by: Sertraline HCl (Zoloft) 100 mg PO DAILY [facility] Last Admin: 04/17/20 10:50 Dose: 100 mg Documented by: Sodium Chloride () 10 - 40 ml IV UD PRN PRN Reason: SALINE FLUSH Last Admin: 04/16/20 22:50 Dose: 10 ml Documented by: Thiamine HCl (Vitamin B1) [facility] Last Admin: 04/17/20 10:50 Dose: 100 mg Documented by: Trazodone HCl (Desyrel) 100 mg PO QHS PRN PRN Reason: INSOMNIA STROKE Vital Signs/Narrative: Vital Signs Temp Pulse Resp BP Pulse Ox 04/17/20 10:45 98.4 F 80 16 116/71 100 Medical Necessity - Tobacco Use Smoking Status: Light Smoker (<10/day) Tobacco Use: Non-smoker, Chew Assessment/Plan All Active Problems Chest pain (Acute) Alcohol withdrawal (Acute) Lactic acidosis (Acute) 1. Alcoholism with acute withdrawal - improved, mild tremor. continue ph enobarbital taper. Replace K+ and Mag. CIWA protocol, thiamine, folate. 2. Chest pain - Musculoskeletal. Trop negx3, CXR this AM neg, stress test neg. 3. RUE hematoma 2/2 fall 4. Hx TIA - aspirin, not on statin 5. HTN - amlodipine 6. Nicotine abuse - 6 cigarettes per day. patch if desired. 7. Anx/Depression - zoloft. DVT ppx: lovenox DC planning: referral to [facility] program This patient was seen by Chris Ortega PA-C under the supervision of Dr. Morgan <Sherri Morgan - Last Filed: 04/17/20 17:45> Subjective: Feels much better today. Some internal anxiety. Feels well. Vitals/I&O's: Vital Signs Temp Pulse Resp BP Pulse Ox 99.1 F 70 16 120/80 99 04/17/20 16:45 04/17/20 16:45 04/17/20 16:45 04/17/20 16:45 04/17/20 16:45 Oxygen Delivery Method Room Air Weight: 86.232 kg Body Mass Index (BMI) 28.0 Finger Stick Blood Glucose 92 Intake and Output for Last 24 Hours 04/15/20 04/16/20 04/17/20 23:59 23:59 23:59 Intake Total 3634.20 / 363.20 1459.80 / 1459.80 Balance 3634. / 363.20 1459.80 / 1459.80 General: Alert, Oriented x3, Cooperative, No apparent distress, Well developed, Well nourished, - - middle aged WM lying in bed watching TV, appears well Lungs: Clear to auscultation, Normal air movement, No rhonchi, No wheeze, No rales Cardiovascular: Regular rate, Regular Rhythm, Normal S1, Normal S2, No murmurs, No Ectopic Activity, No rub noted, No Gallop Abdomen: Bowel Sounds Present, Soft, Non Tender, Non-Distended Extremities: No clubbing, No cyanosis, No edema, Capillary Refill Less than 3 Seconds, Peripheral Pulses Normal Skin: No rashes, No breakdown Musculoskeletal: No Tenderness to Palpation of Joints or Extremities Neurological: Cranial nerves II-XII grossly intact, Neuro grossly intact Psych/Mental Status: Normal Affect, Appropriate, Alert and oriented to time, place, person, mood and affect Laboratory Results 04/16/20 15:48: COVID-19 ([facility]) Negative 04/16/20 19:05: Lactic Acid 1.0 04/16/20 19:05: Troponin I < 0.015 04/16/20 19:05: Phosphorus 2.7, Magnesium 1.7 04/16/20 22:25: Troponin I < 0.015 04/17/20 05:24: WBC 3.6 L, RBC 4.25 L, Hgb 13.9, Hct 40.2, MCV 94.6 H, MCH 32.7 H, MCHC 34.6, RDW Std Deviation 42.8, RDW Coeff of Raz 12.2, Plt Count 119 L, MPV 10.3, Immature Gran % (Auto) 0.300, Neut % (Auto) 59.8, Lymph % (Auto) 23.5, [place] % (Auto) 13.0 H, Eos % (Auto) 2.8, Baso % (Auto) 0.6, Absolute Neuts (auto) 2.2, Absolute Lymphs (auto) 0.85, Nucleated RBC % 0 04/17/20 05:24: Sodium 137, Potassium 3.4 L, Chloride 107, Carbon Dioxide 26.0, Anion Gap 4 L, BUN 5 L, Creatinine 0.62 L, Estim Creat Clear Calc 152.04, Est GFR (MDRD) Af Amer 183, Est GFR (MDRD) Non-Af 151, BUN/Creatinine Ratio 8.1 L, Glucose 86, Calcium 8.1 L Current Medications Al Hydroxide/Mg Hydroxide (Mylanta Ii) 30 ml PO Q6H PRN PRN PRN Reason: dyspesia Amlodipine Besylate (Norvasc) 2.5 mg PO DAILY [facility] Last Admin: 04/17/20 10:50 Dose: 2.5 mg Documented by: Amlodipine Besylate (Norvasc) 5 mg PO DAILY [facility] Last Admin: 04/17/20 10:50 Dose: 5 mg Documented by: Aspirin (Aspirin) 325 mg PO DAILY@0800 [facility] Last Admin: 04/17/20 06:51 Dose: 325 mg Documented by: Dicyclomine HCl (Bentyl) 20 mg PO Q6H PRN PRN PRN Reason: abdominal discomfort Folic Acid (Folic Acid) 1 mg PO DAILY@0800 [facility] Last Admin: 04/17/20 10:50 Dose: 1 mg Documented by: Gabapentin (Neurontin) 300 mg PO Q8H PRN PRN PRN Reason: moderate to severe anxiety Hydroxyzine Pamoate (Vistaril Pamoate Capsule) 50 mg PO Q4H PRN PRN PRN Reason: mild anxiety Sodium Chloride () 250 mls @ 15 mls/hr IV .[id number] PRN PRN Reason: Saline Flush Sodium Chloride () 250 mls @ 15 mls/hr IV .[id number] PRN PRN Reason: Additional IVPB Infusion Ibuprofen (Motrin) 600 mg PO Q8H PRN PRN PRN Reason: Pain Score 1-10/10 Loperamide HCl (Imodium) 2 mg PO Q4H PRN PRN PRN Reason: LOOSE STOOLS Multivitamins (Multivitamin) [facility] Last Admin: 04/17/20 10:50 Dose: 1 tablet Documented by: Ondansetron HCl (Zofran) 8 mg PO Q8H PRN PRN PRN Reason: NAUSEA Last Admin: 04/16/20 21:20 Dose: 8 mg Documented by: Pantoprazole Sodium (Protonix) 40 mg PO BID [facility] Last Admin: 04/17/20 10:54 Dose: 40 mg Documented by: Phenobarbital (Phenobarbital) 97.2 mg PO Q4H [facility]; Taper Stop: 04/21/20 05:29 Last Admin: 04/17/20 17:31 Dose: 97.2 mg Documented by: Sertraline HCl (Zoloft) 100 mg PO DAILY [facility] Last Admin: 04/17/20 10:50 Dose: 100 mg Documented by: Sodium Chloride () 10 - 40 ml IV UD PRN PRN Reason: SALINE FLUSH Last Admin: 04/16/20 22:50 Dose: 10 ml Documented by: Thiamine HCl (Vitamin B1) [facility] Last Admin: 04/17/20 10:50 Dose: 100 mg Documented by: Trazodone HCl (Desyrel) 100 mg PO QHS PRN PRN Reason: INSOMNIA STROKE Vital Signs/Narrative: Vital Signs Temp Pulse Resp BP Pulse Ox 04/17/20 16:45 99.1 F 70 16 120/80 99 04/17/20 14:53 74 Assessment/Plan I agree with the above and the following is a representation of my independent history and physical ASSESSMENT Acute EtOH withdrawal CP-noncardiac R UE hematoma 2/2 fall Hypokalemia Lactic acidosis-resolved HTN H/O TIA THC use Anxiety and depression Nicotine abuse PLAN -continue acute EtOH withdrawal protocol with phenobarb -Stress test neg for inducible ischemia -K replacement -VSS -follow cx -doubt will be + -probable d/c in am Inpatient E&M: [id number] Subs Hosp L2
[2020-04-17] MEDS: Ibuprofen 600 MG Tablet PO (20:37)
[2020-04-18] MEDS: Phenobarbital 32.4 MG Tablet 64.8 MG PO ×3 (02:06→08:37)
[2020-04-18 02:09] VITALS: BP 110/77; PULSE 52; RESP 16; TEMP 36.5; O2SAT 98
[2020-04-18 04:06] VITALS: PULSE 56
[2020-04-18 06:26] LABS: Absolute Lymphocyte Count 1.16 X10^3/uL (0.83-4.51); Absolute Neutrophil Count 1.8 X10^3/uL (2.0-7.7); Basophil# 0.02 X10^3/uL; Basophil% 0.6 % (0-1); Eosinophil# 0.19 X10^3/uL; Eosinophils% 5.3 % (0-5); Hematocrit 41.5 % (40-54); Hemoglobin 14.3 g/dL (13.0-16.5); Lymphocyte # 1.16 X10^3/ul (4.0); Lymphocyte % 32.2 % (19-41); Mean Corp Hgb Conc 34.5 g/dL (32-36); Mean Corpuscular Hgb 33.1 pg (27.0-32.0); Mean Corpuscular Volume 96.1 fL (80-94); Mean Platelet Vol. 10.5 fl (6.2-12.0); Monocyte# 0.42 X10^3/uL; Monocyte% 11.7 % (0-10); NRBC Flagged by Analyzer 0 % (0-5); Neutrophil % 49.9 % (47-70); Platelet Count 121 K/mm3 (150-450); RBC Distribution Width CV 11.9 % (11.6-14.6); RBC Distribution Width SD 42.3 fl (35.1-43.9); Red Blood Count 4.32 M/mm3 (4.6-6.2); White Blood Count 3.6 K/mm3 (4.4-11.0)
[2020-04-18 06:58] LABS: ALB/GLOB Ratio 1.2 RATIO (0.9-2.4); AST(SGOT) 67 U/L (15-37); Alanine Aminotransfer ALT/SGPT 87 U/L (16-61); Albumin, Serum 3.6 g/dL (3.2-5.0); Alkaline Phosphatase 48 U/L (45-117); Anion Gap 5 (5-15); BUN 9 mg/dL (7-18); BUN/Creat Ratio 13.7 RATIO (10-20); Calcium,Total 8.5 mg/dL (8.5-10.1); Chloride 104 mmol/L (98-107); Creatinine, Serum 0.66 mg/dL (0.70-1.30); EST Glomerular Filtration Rate 141 mL/min (>60); Est Glom Filt Rate - Afr Amer 170 mL/min (>60); Estimated Creatinine Clearance 142.83 ml/min; Globulin 3.1 g/dL (2.2-4.2); Glucose 84 mg/dL (74-106); Potassium 3.3 mmol/L (3.5-5.1); Protein, Total 6.7 g/dL (6.4-8.2); Sodium Level 136 mmol/L (136-145)
[2020-04-18 07:08] VITALS: PULSE 59
[2020-04-18 08:10] VITALS: BP 136/90; PULSE 90; RESP 16; TEMP 36.6; O2SAT 99
[2020-04-18] MEDS: Folic Acid 1 MG Tablet PO (08:37)
[2020-04-18] MEDS: Thiamine Hydrochloride 100 MG Tablet PO (08:37)
[2020-04-18] MEDS: Multivitamins,Therapeutic Tablet 1 TABLET PO (08:37)
[2020-04-18] MEDS: Aspirin 325 MG Tablet PO (08:37)
[2020-04-18] MEDS: Sertraline 100 MG Tablet PO (08:38)
[2020-04-18] MEDS: Pantoprazole Sodium 40 MG Tablet PO (08:38)
[2020-04-18] MEDS: amLODIPine 5 MG Tablet PO (08:38)
[2020-04-18] MEDS: amLODIPine 2.5 MG Tablet PO (08:38)
--- NOTE | 2020-04-18 10:06 | CASEMGMT ---
SW gave patient information packet on treatment for substance abuse. Heather SAUL ON SITE MANAGER
--- NOTE | 2020-04-18 11:05 | DCINST_ITS ---
- Discharge Diagnoses Current Active Problems: Current Active and Chronic Problems Chest pain (Acute) Alcohol withdrawal (Acute) Lactic acidosis (Acute) You will use the following diet at home:: No restrictions Discharge Activity: May not drive while taking narcotic pain medications. Instructions: ED Chest Pain NonCardiac Allergies/Adverse Reactions: Allergies No Known Allergies Allergy (Verified 04/16/20 13:28) Medications to take at Discharge Amlodipine [Norvasc] 5 mg PO DAILY 08/02/13 Aspirin 325 mg PO DAILY@0800 07/21/16 Amlodipine [Norvasc] 2.5 mg PO DAILY 04/16/20 Sertraline HCl 100 mg PO DAILY 04/16/20 Pantoprazole Sodium [Protonix] 40 mg PO DAILY #60 tab 04/18/20 Potassium Chloride [K-Dur] 20 meq PO BID #60 tab 04/18/20 The following prescriptions were given: Potassium Chloride [K-Dur] 20 meq PO BID #60 tab Transmission Status: Pending to [facility] Pantoprazole Sodium [Protonix] 40 mg PO DAILY #60 tab Transmission Status: Pending to [facility] Primary Care Physician: Colin Santana MD [Primary Care Provider] - Please follow up with your Primary Care Physician in: IN 1 WEEK Test Results: Test results from this visit will be discussed in further detail at your follow- up appointment, if applicable. Proposed Discharge Date: 04/18/20
--- NOTE | 2020-04-18 11:05 | PCM.WORK.EX ---
Work/School Excuse Work/School Excuse for:: Patient Please excuse this person from:: Work From: 04/15/20 through: 04/21/20
--- NOTE | 2020-04-18 11:07 | DS.PCM_ITS ---
Discharge Date and Diagnosis - Problem List Patient Problems: Active and Suspected Problems Chest pain (Acute) Alcohol withdrawal (Acute) Lactic acidosis (Acute) Date of Admission: 04/16/20 Date of Discharge: 04/18/20 - Primary Discharge Diagnosis Acute Problems: Active Problems Chest pain (Acute) Alcohol withdrawal (Acute) Lactic acidosis (Acute) - Secondary Discharge Diagnosis Chronic Problems: Chronic Problems HTN (hypertension) (Chronic) History of tobacco use (Chronic) Hospital Course and Treatment Summary of Care Provided: The patient is a 45 year old M with chest pain as well as acute alcohol withdrawal 1. Chest pain ?Placed on a monitored bed [place] was ruled out with serial cardiac enzymes underwent a nuclear stress test which was negative for stress-induced ischemia 2. Alcohol dependence with acute alcohol withdrawal ?Patient was managed with phenobarb taper. He was referred to 180 on discharge 3. Right upper extremity hematoma secondary to fall ?Managed conservatively 4. Hypertension - Blood pressure controlled, home medications continued with dose adjustment as needed 5. Tobacco dependence - Counseled on cessation, offered nicotine patch for tobacco cravings 6. Depression with anxiety ?Patient on Zoloft did continue 7. Hypokalemia ?Corrected per protocol 8. DVT prophylaxis -on Lovenox Patient Problems: Active and Suspected Problems Chest pain (Acute) Alcohol withdrawal (Acute) Lactic acidosis (Acute) - Physical Exam Vitals/I&O's: Vital Signs Temp Pulse Resp BP Pulse Ox 97.8 F 90 16 136/90 H 99 04/18/20 08:10 04/18/20 08:10 04/18/20 08:10 04/18/20 08:10 04/18/20 08:10 Oxygen Delivery Method Room Air Weight: 86.232 kg Body Mass Index (BMI) 28.0 Finger Stick Blood Glucose 92 Intake and Output for Last 24 Hours 04/16/20 04/17/20 04/18/20 23:59 23:59 23:59 Intake Total 3633. / 3633. Balance / General: Alert HEENT: Atraumatic Lungs: Clear to auscultation Neurological: Neuro grossly intact Psych/Mental Status: Normal Affect Laboratory Results 04/18/20 06:04: WBC 3.6 L, RBC 4.32 L, Hgb 14.3, Hct 41.5, MCV 96.1 H, MCH 33.1 H, MCHC 34.5, RDW Std Deviation 42.3, RDW Coeff of Raz 11.9, Plt Count 121 L, MPV 10.5, Immature Gran % (Auto) 0.300, Neut % (Auto) 49.9, Lymph % (Auto) 32.2, [place] % (Auto) 11.7 H, Eos % (Auto) 5.3 H, Baso % (Auto) 0.6, Absolute Neuts (auto) 1.8 L, Absolute Lymphs (auto) 1.16, Nucleated RBC % 0 04/18/20 06:04: Sodium 136, Potassium 3.3 L, Chloride 104, Carbon Dioxide 27.0, Anion Gap 5, BUN 9, Creatinine 0.66 L, Estim Creat Clear Calc 142.83, Est GFR (MDRD) Af Amer 170, Est GFR (MDRD) Non-Af 141, BUN/Creatinine Ratio 13.7, Glucose 84, Calcium 8.5, Total Bilirubin 1.20 H, AST 67 H, ALT 87 H, Alkaline Phosphatase 48, Total Protein 6.7, Albumin 3.6, Globulin 3.1, Albumin/Globulin Ratio 1.2 Current Medications Al Hydroxide/Mg Hydroxide (Mylanta Ii) 30 ml PO Q6H PRN PRN PRN Reason: dyspesia Amlodipine Besylate (Norvasc) 2.5 mg PO DAILY [facility] Last Admin: 04/18/20 08:38 Dose: 2.5 mg Documented by: Amlodipine Besylate (Norvasc) 5 mg PO DAILY [facility] Last Admin: 04/18/20 08:38 Dose: 5 mg Documented by: Aspirin (Aspirin) 325 mg PO DAILY@0800 [facility] Last Admin: 04/18/20 08:37 Dose: 325 mg Documented by: Dicyclomine HCl (Bentyl) 20 mg PO Q6H PRN PRN PRN Reason: abdominal discomfort Folic Acid (Folic Acid) 1 mg PO DAILY@0800 [facility] Last Admin: 04/18/20 08:37 Dose: 1 mg Documented by: Gabapentin (Neurontin) 300 mg PO Q8H PRN PRN PRN Reason: moderate to severe anxiety Hydroxyzine Pamoate (Vistaril Pamoate Capsule) 50 mg PO Q4H PRN PRN PRN Reason: mild anxiety Sodium Chloride () 250 mls @ 15 mls/hr IV .[id number] PRN PRN Reason: Saline Flush Sodium Chloride () 250 mls @ 15 mls/hr IV .[id number] PRN PRN Reason: Additional IVPB Infusion Ibuprofen (Motrin) 600 mg PO Q8H PRN PRN PRN Reason: Pain Score 1-10/10 Last Admin: 04/17/20 20:37 Dose: 600 mg Documented by: Loperamide HCl (Imodium) 2 mg PO Q4H PRN PRN PRN Reason: LOOSE STOOLS Multivitamins ([facility]itamin) [facility] Last Admin: 04/18/20 08:37 Dose: 1 tablet Documented by: Ondansetron HCl (Zofran) 8 mg PO Q8H PRN PRN PRN Reason: NAUSEA Last Admin: 04/16/20 21:20 Dose: 8 mg Documented by: Pantoprazole Sodium (Protonix) 40 mg PO BID [facility] Last Admin: 04/18/20 08:38 Dose: 40 mg Documented by: Phenobarbital (Phenobarbital) 64.8 mg PO Q4H [facility]; Taper Stop: 04/21/20 05:29 Last Admin: 04/18/20 08:37 Dose: 64.8 mg Documented by: Sertraline HCl (Zoloft) 100 mg PO DAILY [facility] Last Admin: 04/18/20 08:38 Dose: 100 mg Documented by: Sodium Chloride () 10 - 40 ml IV UD PRN PRN Reason: SALINE FLUSH Last Admin: 04/16/20 22:50 Dose: 10 ml Documented by: Thiamine HCl (Vitamin B1) [facility] Last Admin: 04/18/20 08:37 Dose: 100 mg Documented by: Trazodone HCl (Desyrel) 100 mg PO QHS PRN PRN Reason: INSOMNIA Discharge Diet: No Restrictions Discharge Activity: May not drive while taking narcotic pain medications. Home Medications: Medications to take at Discharge Amlodipine [Norvasc] 5 mg PO DAILY 08/02/13 Aspirin 325 mg PO DAILY@0800 07/21/16 Amlodipine [Norvasc] 2.5 mg PO DAILY 04/16/20 Sertraline HCl 100 mg PO DAILY 04/16/20 Pantoprazole Sodium [Protonix] 40 mg PO DAILY #60 tab 04/18/20 Potassium Chloride [K-Dur] 20 meq PO BID #60 tab 04/18/20 Following Prescriptions Were Given to Patient: Potassium Chloride [K-Dur] 20 meq PO BID #60 tab Transmission Status: Pending [facility] Pantoprazole Sodium [Protonix] 40 mg PO DAILY #60 tab Transmission Status: Pending to [facility] Primary Care Physician: Colin Santana MD [Primary Care Provider] - Please follow up with your Primary Care Physician in: IN 1 WEEK Patient Instructions: ED Chest Pain NonCardiac Disposition: Home Minutes spent on discharge:: 35 Patient Condition:: Stable Medical Necessity - Tobacco Use Smoking Status: Light Smoker (<10/day) Tobacco Use: Non-smoker, Chew Meaningful Use Info Meaningful Use Diagnoses (Choose all that apply): None applicable Inpatient E&M: [id number] [facility]
[2020-04-18 11:17] VITALS: PULSE 97
[2020-04-18 12:29] VITALS: BP 112/81; PULSE 103; RESP 17; TEMP 36.9; O2SAT 98
== END 2020-04-18 12:35 | disposition home or self-care (01) | DRG 897 ==
LOC: ED 15:39 → PCU 16:25
PROVIDERS: Family Medicine; Physician Assistant; Admitting Provider Hospitalist; Emergency Provider Emergency Medicine; PCP Family Medicine; Visit Provider Internal Medicine
DX: F10.239 Alcohol dependence with withdrawal, unspecified (principal); E87.2 Acidosis; E87.6 Hypokalemia; R07.89 Other chest pain; I10 Essential (primary) hypertension; E78.5 Hyperlipidemia, unspecified; S40.021A Contusion of right upper arm, initial encounter; W19.XXXA Unspecified fall, initial encounter; F32.9 Major depressive disorder, single episode, unspecified; F41.9 Anxiety disorder, unspecified; F17.210 Nicotine dependence, cigarettes, uncomplicated; Z79.82 Long term (current) use of aspirin; Z79.899 Other long term (current) drug therapy; Z86.73 Personal history of transient ischemic attack (TIA), and cerebral infarction without residual deficits
CPT/HCPCS: 36415; 71045; 71046; 78452; 80048; 80053; 80307; 80320; 83605; 83690; 83735; 84100; 84484; 85025; 85610; 85730; 87040; 87635; 93005; 93017; 94799; 99285; 99406; A9500; J7030; A4216; G0480; J2405; U0003

== ENCOUNTER 2020-07-26 12:21 | Emergency (ER) | payer OTHER, SELFPAY ==
[2020-04-16 19:00] VITALS: BMI 28.0
[2020-07-26 12:21] VITALS: BP 117/83; PULSE 89; RESP 20; TEMP 36.3; O2SAT 100; BMI 28.0
--- NOTE | 2020-07-26 14:06 | EKG12_ITS ---
Test Reason : Blood Pressure : / mmHG Vent. Rate : 062 BPM Atrial Rate : 062 BPM P-R Int : 126 ms QRS Dur : 084 ms QT Int : 450 ms P-R-T Axes : 002 018 020 degrees QTc Int : 456 ms Normal sinus rhythm Normal ECG Confirmed by KEVIN THOMSON, BRE ([id number]), order editor SHERICE MCCORD ([id number]) on 07/29/2020 9:48:36 AM Referred By: SIMRAN Confirmed By:BRE BROWN MD
--- NOTE | 2020-07-26 14:22 | RAD_ITS ---
STUDY: X-RAY CHEST REASON FOR EXAM: Male, 45 years old. n/v, muscle aches, shakes, light headed, and quot;my lungs hurt and quot;. Covid test on wednesday but doesnt have results back yet TECHNIQUE: Single AP portable view of the chest. COMPARISON: Comparison is made with prior study dated 04/17/2020. FINDINGS: EKG electrodes are seen. The lungs are clear and expanded. There is no demonstrated pleural abnormality. Normal size heart. Normal mediastinum and yudith. Normal visualized pulmonary arteries. Normal visualized aortic arch and descending thoracic aorta. Normal visualized thoracic spine. Normal visualized ribs, clavicles, and shoulders. There is no demonstrated abnormality of the visualized soft tissue structures of the upper abdomen. RAD/Chest 1 View (Portable) IMPRESSION: Normal x-ray examination of the chest. Electronically Signed: Hema Wilson, at 14:48 EST , Service support ,
[2020-07-26 14:26] VITALS: BP 127/89; PULSE 68; RESP 14; O2SAT 99
[2020-07-26] MEDS: 0.9% Normal Saline 1,000 ML 1000 ML IV (14:28)
[2020-07-26] MEDS: Ondansetron 4 MG/2 ML Vial IV (14:36)
[2020-07-26 14:37] VITALS: BP 137/84; PULSE 65; RESP 19; TEMP 36.6; O2SAT 98
[2020-07-26 14:37] LABS: Absolute Lymphocyte Count 0.36 X10^3/uL (0.83-4.51); Absolute Neutrophil Count 3.7 X10^3/uL (2.0-7.7); Eosinophil# 0.01 X10^3/uL; Eosinophils% 0.2 % (0-5); Hematocrit 43.5 % (40-54); Hemoglobin 15.1 g/dL (13.0-16.5); Lymphocyte # 0.36 X10^3/ul (4.0); Lymphocyte % 8.2 % (19-41); Mean Corp Hgb Conc 34.7 g/dL (32-36); Mean Corpuscular Hgb 32.5 pg (27.0-32.0); Mean Corpuscular Volume 93.8 fL (80-94); Mean Platelet Vol. 10.8 fl (6.2-12.0); Monocyte# 0.33 X10^3/uL; Monocyte% 7.5 % (0-10); NRBC Flagged by Analyzer 0 % (0-5); Neutrophil # 3.66 X10^3/uL (2.7-7.7); Neutrophil % 83.6 % (47-70); POSITIVE COUNT YES; POSITIVE DIFFERENTIAL YES; Platelet Count 66 K/mm3 (150-450); RBC Distribution Width CV 12.4 % (11.6-14.6); RBC Distribution Width SD 42.7 fl (35.1-43.9); Red Blood Count 4.64 M/mm3 (4.6-6.2); White Blood Count 4.4 K/mm3 (4.4-11.0)
[2020-07-26 15:00] LABS: ALB/GLOB Ratio 1.3 RATIO (0.9-2.4); AST(SGOT) 149 U/L (15-37); Alanine Aminotransfer ALT/SGPT 152 U/L (16-61); Albumin, Serum 4.2 g/dL (3.2-5.0); Alkaline Phosphatase 65 U/L (45-117); Anion Gap 10 (5-15); BUN 5 mg/dL (7-18); Calcium,Total 9.1 mg/dL (8.5-10.1); Chloride 104 mmol/L (98-107); Creatinine, Serum 0.62 mg/dL (0.70-1.30); EST Glomerular Filtration Rate 149 mL/min (>60); Est Glom Filt Rate - Afr Amer 180 mL/min (>60); Estimated Creatinine Clearance 152.04 ml/min; Globulin 3.3 g/dL (2.2-4.2); Glucose 94 mg/dL (74-106); Lipase 349 U/L (73-393); Potassium 3.6 mmol/L (3.5-5.1); Protein, Total 7.5 g/dL (6.4-8.2); Sodium Level 139 mmol/L (136-145)
[2020-07-26 15:08] LABS: Differential Comment SCANNED; Differential Indicated SCAN CRITERIA MET
[2020-07-26 15:18] LABS: Prothrombin Time (Protime)PT. 12.4 SECONDS (11.7-14.9)
[2020-07-26 15:32] LABS: Amphetamine Urine VISTA NEGATIVE (<1000 ng/mL); Barbiturate Urine VISTA NEGATIVE (< 200 ng/mL); Benzodiazepine Urine VISTA NEGATIVE (< 200 ng/mL); Cocaine Urine VISTA NEGATIVE (< 300 ng/mL); Ecstacy Urine VISTA NEGATIVE (< 500 ng/mL); Methadone Urine VISTA NEGATIVE (< 300 ng/mL); PCP Urine VISTA NEGATIVE (< 25 ng/mL); THC Urine VISTA POSITIVE (< 50 ng/mL); Vista UDS pH Range 6
--- NOTE | 2020-07-26 15:49 | ED.VIS.GEN ---
History of Present Illness Informant: Patient Onset: Days - 3 days Context: Gradual Onset Timing: Continuous Quality: nausea Location: stomach Current Severity: Severe Maximum Severity: Severe Worsened by: food and drink Relieved by: nothing Associated Symptoms: cough, CP, SOB Narrative: 45-year-old male history of hypertension and alcohol abuse presents to the emergency department with nausea and vomiting, cough, shortness of breath and chest pain for the last 3 to 4 days. He had a Covid test 3 days ago but does not yet have the results. He has been vomiting so much that he has been unable to drink alcohol today. His last drink was last evening. He denies any coffee-ground emesis or hematemesis. He is not having abdominal pain. He has been urinating normally. He does not feel lightheaded or dizzy. He has not had seizure activity. He denies history of alcohol withdrawal seizure. He denies leg pain or swelling recent travel or surgery or history of DVT or PE. Prior similar symptoms: Yes Recent Illness/Hospitalization: No <Marco Antonio Sloorzano - Last Filed: 07/26/20 15:56> <Paramjit Daigle - Last Filed: 07/26/20 22:17> Chief Complaint: Nausea/Vomiting Past Medical History Prior records reviewed: Yes Past Medical History: - - Hypertension hyperlipidemia alcohol abuse TIA Surgical History: no surgical history, - - Denies prior back surgery or injections. Lives: With Family Smoking Status: Current every day smoker Alcohol: Heavy Drugs: None - Family History Paternal Family History: Reports: Stroke Maternal Family History: Reports: Stroke, - - migraine <Marco Antonio Solorzano - Last Filed: 07/26/20 15:56> <Paramjit Daigle - Last Filed: 07/26/20 22:17> - Allergies and Home Meds Allergies/Adverse Reactions: Allergies No Known Allergies Allergy (Verified 07/26/20 12:24) Primary Care Physician: Colin Santana MD [Primary Care Provider] - As soon as possible Review of Systems All systems negative except as indicated General: Reports: Malaise. Denies: Chills, Fever, Sweats Eyes: Denies: Visual changes - bilaterally, Diplopia ENT: Denies: Rhinorrhea, Sore throat Cardiovascular: Reports: Chest pain. Denies: Palpitations, Heart racing Respiratory: Reports: Dyspnea, Cough, Sputum. Denies: Dyspnea on exertion, Orthopnea, Paroxysmal nocturnal dyspnea Gastrointestinal: Reports: Nausea, Vomiting. Denies: Abdominal pain, Diarrhea, Constipation, Melena, Hematochezia Genitourinary: Denies: Dysuria, Hematuria, Frequency Musculoskeletal: Denies: Myalgias, Arthralgias, Neck pain, Back pain, Swelling, Extremity Pain Skin: Denies: Rash, Abscess, Abrasions, Wounds Neurological: Denies: Headache, Weakness, Parasthesia, Numbness Psych: Denies: Suicidal thoughts, Suicidal ideations <Marco Antonio Solorzano - Last Filed: 07/26/20 15:56> Physical Exam Vital Signs/Narrative: Vital Signs Temp Pulse Resp BP Pulse Ox 07/26/20 14:37 97.8 F 65 19 H 137/84 H 98 07/26/20 14:26 68 14 127/89 H 99 07/26/20 12:21 97.4 F L 89 20 H 117/83 H 100 Inital Vital Signs reviewed: Yes General: Well nourished, Well developed, No Acute Distress Head: Normocephalic, Atraumatic Eyes: Perrl, EOMI ENT: Moist mucous membranes, No rhinorrhea Neck: Supple, Nontender Cardiovascular: Regular rate, Regular rhythm, No murmurs Respiratory: No distress, CTA bilaterally, Chest nontender Abdomen: Soft, Nontender, Nondistended, Normal bowel sounds Back: Nontender, Normal Inspection Extremities: Nontender, No edema Skin: Normal color, No rash Neurological: Alert, Oriented x3, Cranial nerves II-XII grossly intact, Normal Strength, Normal Sensation Psychological: Normal affect, Normal Mood <Marco Antonio Solorzano - Last Filed: 07/26/20 15:56> Diagnostic/Tx/Re-eval Chest X-Ray - ED: 1 View, Read by ED Physician, Read by Radiologist, No Acute Disease - Rhythm Strip Rhythm Strip: Sinus Rhythm Rate: 66 Ectopy: None - EKG Initial EKG Interpretation: Sinus Rhythm, No Acute Injury Pattern Prior: Unchanged - Medical Decision Making On arrival the patient has nausea vomiting but he is not hypertensive or tachycardic. Patient states to me he does not feel like he is in alcohol withdrawal. We obtained a comprehensive work-up. EKG was sinus rhythm rate of [address] segment or T wave changes. Unchanged from previous EKG. Patient's laboratory work-up including CBC CMP lipase troponin unremarkable. Alcohol is 7. Drug screen negative. Chest x-ray was unremarkable. After fluids and Zofran the patient feels improved. Abdomen is soft and nontender on repeat evaluation. He is able to tolerate by mouth. Will discharge with Zofran we will send off a test for Covid and he will be discharged <Marco Antonio Solorzano - Last Filed: 07/26/20 15:56> - Medical Decision Making Attending note: Patient seen and evaluated with [id number] programmer. I agree with plan and work-up. I performed my own [id number] evaluation. 3 to 4 days Covid symptoms nausea vomiting diarrhea loss of taste and smell along with myalgias. Has not been able to keep p.o. fluids down since yesterday. No chest pains. Exam nontoxic patient slight dry mucosal membranes. Vital signs are stable. Nontender abdomen. Work-up with labs stable electrolytes and creatinine. Given fluids Zofran improvement of symptoms he is tolerating p.o. intake. Covid testing sent however clinically highly suspicious for Covid. Prescription for Zofran as needed. Return precautions. <Paramjit Daigle - Last Filed: 07/26/20 22:17> ED Disposition <Marco Antonio Solorzano - Last Filed: 07/26/20 15:56> <Paramjit Daigle - Last Filed: 07/26/20 22:17> - Plan for ED Patient: Disposition: Home or Assisted Living Diagnosis: Nausea and vomiting, COVID-19, Alcohol abuse Instructions: ED Nausea Vomiting Adult Prescriptions: Ondansetron [Zofran Odt] 8 mg PO Q8H PRN PRN #20 tab PRN Reason: Nausea Transmission Status: Received by [facility] Referrals: Colin Santana MD [Primary Care Provider] - As soon as possible
[2020-07-26 16:08] VITALS: BP 142/68; PULSE 61; RESP 15; O2SAT 98
[2020-07-29 13:44] LABS: Pathologist Review Reviewed
== END 2020-07-26 16:08 | disposition home or self-care (01) ==
LOC: ED 16:00
PROVIDERS: Emergency Provider Physician Assistant Medical; PCP Family Medicine
DX: U07.1 COVID-19 (principal); R11.2 Nausea with vomiting, unspecified; F10.10 Alcohol abuse, uncomplicated; I10 Essential (primary) hypertension; E78.5 Hyperlipidemia, unspecified; F17.200 Nicotine dependence, unspecified, uncomplicated; Z79.82 Long term (current) use of aspirin; Z79.899 Other long term (current) drug therapy; Z86.73 Personal history of transient ischemic attack (TIA), and cerebral infarction without residual deficits
CPT/HCPCS: 71045; 80053; 80307; 80320; 83690; 84484; 85025; 85610; 87635; 93005; 96361; 96374; 99283; J7030; G0480; J2405; U0003

== ENCOUNTER 2020-12-19 14:45 | Inpatient (IN) | payer OTHER, SELFPAY ==
[2020-12-19 14:48] VITALS: BP 116/88; PULSE 80; RESP 14; TEMP 36.6; O2SAT 99; BMI 28.0
--- NOTE | 2020-12-19 14:58 | CT_ITS ---
STUDY: CT BRAIN WITHOUT CONTRAST REASON FOR EXAM: Male, 45 years old. Near syncope, paraesthesias. Left-sided numbness. RADIATION DOSAGE (If Supplied By Facility): CTDIvol = ( 44.99 ) mGy, DLP = ( 779.24 ) mGycm TECHNIQUE: Transaxial CT imaging of the brain was performed without administration of intravenous contrast material. Individualized dose optimization techniques were used for this CT. COMPARISON: Comparison is made with prior examination dated 07/21/2016. FINDINGS: Normal soft tissue structures. Normal calvarium. Normal size ventricles and extra-axial spaces for the patient''s age. Normal white matter tracts of the cerebral hemispheres. Normal basal ganglia and thalami. Normal brainstem. Normal cerebellum. There is no intracranial hemorrhage. There are no findings of an acute ischemic infarction. Normal visualized paranasal sinuses. CT/Brain/Head without Contrast IMPRESSION: Normal unenhanced CT scan of the brain. Electronically Signed: Hema Wilson MD at 15:29 EDT , Service support ,
--- NOTE | 2020-12-19 14:58 | EKG12_ITS ---
Test Reason : CP Blood Pressure : / mmHG Vent. Rate : 076 BPM Atrial Rate : 076 BPM P-R Int : 152 ms QRS Dur : 092 ms QT Int : 408 ms P-R-T Axes : 025 010 025 degrees QTc Int : 459 ms Normal sinus rhythm Normal ECG Confirmed by CARSON THOMSON, NICHOLAS ([id number]), greeting card editor SHERICE MCCORD ([id number]) on 12/24/2020 9:09:26 AM Referred By: JANINA Confirmed By:AMELIE BYRD MD
--- NOTE | 2020-12-19 14:59 | ED.VISSUMM ---
- ER Visit Summary Date of Service: 12/19/20 Chief Complaint: [Near syncope and paresthesias] History of Present Illness: The patient is a 45 M [presents to the emergency department from work via EMS. Patient apparently was at work when he started feeling lightheaded and dizzy and felt like he might pass out. Patient states that he started feeling nauseated and coworker state that he got pale and clammy so they sat him in front of a fan. Patient did not actually pass out. EMS was called for him. Patient also relates history of numbness in both feet for the last month and numbness in the left arm for several months. He denies weakness in the extremities. Patient is a heavy drinker and mostly drinks vodka and occasionally beer. His last drink was earlier this morning. Patient denies any chest pain or shortness of breath currently. He denies any abdominal pain currently. He denies recent illness. Patient did have COVID-19 several months ago.] Physical Examination: [HEENT-PERRLA, EOMI. Cranial nerves II through XII grossly intact. TMs clear. Mucous membranes moist. No adenopathy. Cardiovascular-regular rate and rhythm without murmur or ectopy Lungs-clear to auscultation, chest wall stable without crepitus or subcu emphysema Abdomen-normoactive bowel sounds, soft, nontender, no rebound or rigidity, no peritoneal signs. Neuro [id number] and heel [place] testing within normal limits, negative Romberg, negative for drift, fundi benign. Patient has decreased in station to light touch to both feet. Extremities-intact ?4, normal range of motion, normal pulses, atraumatic] Test Results: [EKG obtained arrival shows sinus rhythm with a ventricular rate 76 bpm with no acute ST segment changes. CT scan of the brain without contrast was unremarkable. CBC with differential showed a white count 2.1, hemoglobin 13, hematocrit 40, platelets 45. Chemistries unremarkable. ALT was 179 and AST was 266. Troponin less than 0.015. Alcohol was 338. Talk screen positive for marijuana.] Emergency Department Course and Treatment: [The line established on arrival. I had discussion with patient and he would like to have detox for alcohol.] Suspect patient symptoms are related to alcoholism. I suspect his thrombocytopenia is related to the alcohol use as well as his suspected peripheral neuropathy. Treatment Plan: [Admit for alcohol detox] Disposition: [Admit] Impression: [Alcohol intoxication Request for detox from alcohol Thrombocytopenia Alcoholic neuropathy] This note was generated with [employer] dictation software. It may contain incorrect words, spelling, and punctuation that were not noted in review of the chart prior to signing ED Disposition - Plan for ED Patient: Referrals: Colin Santana MD [Primary Care Provider] -
[2020-12-19 15:23] VITALS: BP 101/72; PULSE 75; RESP 16; O2SAT 98
[2020-12-19] MEDS: 0.9% Normal Saline 1,000 ML 150 ML IV (15:25)
[2020-12-19 15:28] LABS: Absolute Lymphocyte Count 0.48 X10^3/uL (0.83-4.51); Absolute Neutrophil Count 1.3 X10^3/uL (2.0-7.7); Basophil# 0.03 X10^3/uL; Basophil% 1.4 % (0-1); Eosinophil# 0.01 X10^3/uL; Eosinophils% 0.5 % (0-5); Hematocrit 39.8 % (40-54); Hemoglobin 13.2 g/dL (13.0-16.5); Lymphocyte # 0.48 X10^3/ul (0.83-4.51); Lymphocyte % 22.7 % (19-41); Mean Corp Hgb Conc 33.2 g/dL (32-36); Mean Corpuscular Hgb 31.9 pg (27.0-32.0); Mean Corpuscular Volume 96.1 fL (80-94); Monocyte# 0.24 X10^3/uL; Monocyte% 11.4 % (0-10); NRBC Flagged by Analyzer 0 % (0-5); Neutrophil # 1.34 X10^3/uL (2.7-7.7); Neutrophil % 63.5 % (47-70); POSITIVE COUNT YES; POSITIVE DIFFERENTIAL YES; RBC Distribution Width CV 12.4 % (11.6-14.6); Red Blood Count 4.14 M/mm3 (4.6-6.2); White Blood Count 2.1 K/mm3 (4.4-11.0)
[2020-12-19 15:42] LABS: ALB/GLOB Ratio 1.3 RATIO (0.9-2.4); AST(SGOT) 266 U/L (15-37); Alanine Aminotransfer ALT/SGPT 179 U/L (16-61); Alkaline Phosphatase 52 U/L (45-117); Anion Gap 9 (5-15); BUN 11 mg/dL (7-18); BUN/Creat Ratio 16.4 RATIO (10-20); Calcium,Total 8.6 mg/dL (8.5-10.1); Chloride 106 mmol/L (98-107); Creatinine, Serum 0.67 mg/dL (0.70-1.30); EST Glomerular Filtration Rate 136 mL/min (>60); Est Glom Filt Rate - Afr Amer 165 mL/min (>60); Globulin 3.1 g/dL (2.2-4.2); Glucose 105 mg/dL (74-106); Potassium 3.4 mmol/L (3.5-5.1); Protein, Total 7.1 g/dL (6.4-8.2); Sodium Level 141 mmol/L (136-145)
[2020-12-19 16:03] LABS: Platelet Count 45 K/mm3 (150-450)
[2020-12-19 16:04] LABS: Anisocytosis 1+; Macrocytosis 1+; Platelet Estimate MKD DEC (ADEQ); Red Cell Morphology N CHROM NORMAL (NORM C&C)
[2020-12-19 16:31] LABS: Amphetamine Urine VISTA NEGATIVE (<1000 ng/mL); Barbiturate Urine VISTA NEGATIVE (< 200 ng/mL); Benzodiazepine Urine VISTA NEGATIVE (< 200 ng/mL); Cocaine Urine VISTA NEGATIVE (< 300 ng/mL); Ecstacy Urine VISTA NEGATIVE (< 500 ng/mL); Methadone Urine VISTA NEGATIVE (< 300 ng/mL); PCP Urine VISTA NEGATIVE (< 25 ng/mL); THC Urine VISTA POSITIVE (< 50 ng/mL); Vista UDS pH Range 5
--- NOTE | 2020-12-19 17:18 | HP.PCM_ITS ---
Problem List (1) HTN (hypertension) Status: Chronic (2) History of tobacco use Status: Chronic (3) Alcohol abuse Status: Chronic (4) Depression Status: Chronic History of Present Illness Date of Admission: 12/19/20 Chief Complaint: Reported near syncopal episodes, paresthesia. 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 Reportedly, patient was at work, started feeling dizzy and lightheaded and he was about to pass out. Patient was pale and clammy but apparently, he did not pass out or lost his consciousness. He complains of numbness on both feet as well as on the left arm which has been going on for several months and this is not new. He denied focal arm or legs weakness. He denied chest pain, palpitation, shortness of breath. Patient mentioned that he has been drinking every day, heavily, he drinks vodka and beer every single day and his last drink was this morning. He had a history of hypertension and he supposed to be on Norvasc but he has not been taking his med ications. He had a history of depression and he used to be on sertraline but also he is not taking it. He stated that he had a history of opioid abuse, has been taking [place] for 14 years because of chronic pain due to accident in the past but he quit taking [place] several years ago. In the emergency department, patient had no focal deficit. His vital signs are stable. Routine blood work was remarkable for leukopenia, severe thrombocytopenia and neutropenia, potassium was 3.4. LFT revealed elevated liver transaminases, bilirubin and alk phos are normal. EKG revealed normal sinus rhythm without evidence of acute ischemic changes. Troponin was negative. CT scan brain showed no acute findings. Urine drug screen was positive for cannabinoids. Blood alcohol level was 338. Patient expressed interest and desire to be admitted for alcohol detoxification. He is being admitted for acute alcohol intoxication/impending withdrawal for medical stabilization and also found to have leukopen ia/neutropenia/thrombocytopenia and elevated LFT. Past Medical History Past Medical History (Chronic Problems): Chronic Problems Depression (Chronic) Alcohol abuse (Chronic) HTN (hypertension) (Chronic) History of tobacco use (Chronic) Allergies No Known Allergies Allergy (Verified 12/19/20 14:56) Home Medications: Ambulatory Orders Medication Instructions Recorded Aspirin/Caffeine [Back-Body Pain 2 tablet PO DAILY 12/19/20 Reliever Caplet] Surgical History: no surgical history, - Psychiatric History: No pertinent psych hx Lives: Spouse/ Significant Other Smoking Status: Current every day smoker Tobacco Use: Cigarettes Alcohol: Heavy Drugs: Marijuana - *Family History Paternal History Items: Stroke Maternal History Items: Stroke, - - migraine Review of Systems Constitutional: Denies: Anorexia, Chills, Fever, Weakness Eyes: Denies: Blurred vision, Double vision, Drainage, Redness HEENT: Denies: Difficulty Hearing, Ear Pain, Eye Pain, Nasal Congestion, Sore Throat Cardiovascular: Denies: Chest Pressure, Chest Tightness, Heaviness, Light Headedness, Palpitations, Syncope Respiratory: Denies: Cough, Pleuritic Pain, Shortness of Breath, Sputum production, Wheezing Gastrointestinal: Denies: Abdominal Pain, Constipation, Diarrhea, Nausea, Vomiting Genitourinary: Denies: Dysuria, Frequency, Hematuria Musculoskeletal: Denies: Arm Pain, Back Pain, Foot Pain Skin: Denies: Dryness, Rash Neurological: Reports: Numbness, Tingling. Denies: Balance problems, Blurred vision, Double vision, Change in Speech, Slurred speech, Confusion, Headaches Psychiatric: Reports: Depression. Denies: Anxiety Endocrine: Denies: Change in Body Habitus, Polydipsia, Polyuria VTE Information - Inpt Only VTE Present on Admission: No VTE Mechan Device Prophylaxis: None VTE Pharm Prophylaxis ordered?: No - Physical Exam Vitals/I&O's: Vital Signs Temp Pulse Resp BP Pulse Ox 97.8 F 75 16 101/72 98 12/19/20 14:48 12/19/20 15:23 12/19/20 15:23 12/19/20 15:23 12/19/20 15:23 Oxygen Delivery Method Room Air Weight: 189 lb 9.561 oz Body Mass Index (BMI) 28.0 Finger Stick Blood Glucose 92 General: Alert, Oriented x3, Cooperative, No apparent distress HEENT: Atraumatic, PERRLA, EOMI, Normocephalic Oral: Moist Mucosa, No Gingival or Mucosal Lesions/ Ulcerations Neck: Supple, No JVD, Negative Carotid Bruits, Trachea Midline, Thyroid Normal Size and Texture Lungs: Clear to auscultation, Normal air movement, No rhonchi, No wheeze, No rales Cardiovascular: Regular rate, Regular Rhythm, Normal S1, Normal S2, PMI Normal Abdomen: Bowel Sounds Present, Soft, Non Tender, Non-Distended, No Hepato- splenomegaly Extremities: No clubbing, No cyanosis, No edema Skin: No rashes, No breakdown Lymphatic: No Cervical, Supraclavicular, or Inguinal Adenopathy Neurological: Cranial nerves II-XII grossly intact, Motor Exam 5/5 strength throughout Psych/Mental Status: Normal Affect, Appropriate, Alert and oriented to time, place, person, mood and affect Laboratory Results 12/19/20 16:05: Urine Opiates Screen NEGATIVE, Urine Methadone Screen NEGATIVE, Ur Barbiturates Screen NEGATIVE, Ur Phencyclidine Scrn NEGATIVE, Ur Amphetamines Screen NEGATIVE, U Methamphetamin-MDMA NEGATIVE, U Benzodiazepines Scrn NEGATIVE, Urine Cocaine Screen NEGATIVE, U Cannabinoids Screen POSITIVE H, Ur Drug Screen Comment 12/19/20 : WBC 2.1 L, RBC 4.14 L, Hgb 13.2, Hct 39.8 L, MCV 96.1 H, MCH 31.9, MCHC 33.2, RDW Std Deviation 44.0 H, RDW Coeff of Raz 12.4, Plt Count 45 L*, MPV 11.0, Immature Gran % (Auto) 0.500, Neut % (Auto) 63.5, Lymph % (Auto) 22.7, Mclennan % (Auto) 11.4 H, Eos % (Auto) 0.5, Baso % (Auto) 1.4 H, Absolute Neuts (auto) 1.3 L, Absolute Lymphs (auto) 0.48 L, Nucleated RBC % 0, Differential Comment SEE COMMENT, Diff Path Review May foll, Platelet Estimate MKD DEC, RBC Morphology N CHROM, Anisocytosis 1+, Macrocytosis 1+ 12/19/20 : Sodium 141, Potassium 3.4 L, Chloride 106, Carbon Dioxide 26.0, Anion Gap 9, BUN 11, Creatinine 0.67 L, Estim Creat Clear Calc 140.70, Est GFR (MDRD) Af Amer 165, Est GFR (MDRD) Non-Af 136, BUN/Creatinine Ratio 16.4, Glucose 105, Calcium 8.6, Total Bilirubin 0.60, AST 266 H, ALT 179 H, Alkaline Phosphatase 52, Troponin I < 0.015, Total Protein 7.1, Albumin 4.0, Globulin 3.1, Albumin/Globulin Ratio 1.3 12/19/20 : Ethyl Alcohol 338.0 H* Clinical Impression(s) from Imaging Studies Brain CT 12/19/20 14:58 IMPRESSION: Normal unenhanced CT scan of the brain. Electronically Signed: Hema Wilson MD at 15:29 EDT , Service support , Current Medications Sodium Chloride () 1,000 mls @ 150 mls/hr IV .[id number] [facility] Last Admin: 12/19/20 15:25 Dose: 150 mls/hr Documented by: Assessment/Plan This is a 45 years old male patient presented to the emergency room because of reported near syncopal episode, anesthesia, found to have blood alcohol level of 338 and he expressed desire and interest in admission for acute alcohol withdrawal for medical stabilization. #1 acute acute intoxication/impending withdrawal: Blood alcohol level is 338. Urine drug screen was positive for cannabinoids. Vital signs are stable. LFT revealed elevated liver transaminases secondary to alcoholism. Plan: Admit to MedSurg floor, initiate acute alcohol withdrawal protocol with tapering phenobarbital, thiamine and folic supplement, as needed Bentyl, Neurontin, Vistaril, Imodium, Zofran and trazodone, consult 180 program. #2 leukopenia/neutropenia/severe thrombocytopenia: Probably due to chronic liver disease secondary to alcoholism. Absolute neutrophil count is 1300, it is mild neutropenia. Patient has been afebrile. Platelet count is 45,000. No active bleeding. No active infection. Plan to check pro time and INR, monitor, repeat CBC tomorrow morning. #3 chronic bilateral foot/left side paresthesia: This is chronic complaint. Has no focal deficit. CT scan brain showed no acute findings. #4 chronic intermittent chest pain: EKG reviewed, showed no acute segment changes. Troponin was negative. Patient had nuclear stress test back on April, that showed no evidence of stress-induced myocardial ischemia. No indication for further cardiac work-up at this point. #5 hypertension: Currently, blood pressure stable. He is supposed to be on Norvasc but he is not compliant. Plan to monitor. #6 depression: He supposed to be on sertraline but he is not taking it. #7 alcohol abuse: Plan as above. #8 tobacco abuse: NicoDerm patch. #9 DVT prophylaxis: Low risk patient, no prophylaxis because of severe thrombocytopenia. This note was generated with [employer] dictation software. It may contain incorrect words, spelling, and punctuation that were not noted in checking the note before signing. Inpatient E&M: [id number] Init Hosp L3
[2020-12-19 17:21] VITALS: BP 121/94; PULSE 69; RESP 18; TEMP 36.6; O2SAT 97
[2020-12-19 17:58] VITALS: BMI 27.6
[2020-12-19 18:01] VITALS: BMI 27.6
[2020-12-19 18:11] VITALS: BP 120/88; PULSE 60; RESP 18; TEMP 36.6; O2SAT 100
[2020-12-19] MEDS: Phenobarbital 32.4 MG Tablet 64.8 MG PO ×2 (18:22→21:35)
[2020-12-19] MEDS: Potassium Chloride Oral Tablet 20 MEQ 40 MEQ PO (18:23)
[2020-12-19 19:17] LABS: International Normalized Ratio 1.1; Prothrombin Time (Protime)PT. 13.2 SECONDS (11.7-14.9)
[2020-12-19 21:49] VITALS: BP 114/84; PULSE 63; RESP 16; TEMP 36.6; O2SAT 98
[2020-12-20 02:11] VITALS: BP 127/85; PULSE 56; RESP 16; TEMP 36.6; O2SAT 99
[2020-12-20] MEDS: Phenobarbital 32.4 MG Tablet 64.8 MG PO ×6 (02:30→21:58)
[2020-12-20 06:03] VITALS: BP 133/95; PULSE 58; RESP 16; TEMP 36.6; O2SAT 100
[2020-12-20 06:17] LABS: Absolute Lymphocyte Count 0.55 X10^3/uL (0.83-4.51); Absolute Neutrophil Count 1.2 X10^3/uL (2.0-7.7); Basophil# 0.02 X10^3/uL; Basophil% 0.9 % (0-1); Eosinophil# 0.04 X10^3/uL; Eosinophils% 1.9 % (0-5); Hematocrit 40.5 % (40-54); Hemoglobin 13.4 g/dL (13.0-16.5); Lymphocyte # 0.55 X10^3/ul (0.83-4.51); Lymphocyte % 25.8 % (19-41); Mean Corp Hgb Conc 33.1 g/dL (32-36); Mean Corpuscular Hgb 32.8 pg (27.0-32.0); Mean Corpuscular Volume 99.3 fL (80-94); Mean Platelet Vol. 10.6 fl (6.2-12.0); Monocyte# 0.32 X10^3/uL; NRBC Flagged by Analyzer 0 % (0-5); Neutrophil # 1.19 X10^3/uL (2.7-7.7); Neutrophil % 55.9 % (47-70); POSITIVE COUNT YES; POSITIVE DIFFERENTIAL YES; Platelet Count 53 K/mm3 (150-450); RBC Distribution Width CV 12.4 % (11.6-14.6); RBC Distribution Width SD 45.8 fl (35.1-43.9); Red Blood Count 4.08 M/mm3 (4.6-6.2); White Blood Count 2.1 K/mm3 (4.4-11.0)
[2020-12-20 06:20] LABS: Differential Indicated SCAN CRITERIA MET
[2020-12-20 06:41] LABS: Differential Comment SCANNED; Platelet Estimate MKD DEC (ADEQ)
[2020-12-20 06:44] LABS: ALB/GLOB Ratio 1.2 RATIO (0.9-2.4); AST(SGOT) 173 U/L (15-37); Alanine Aminotransfer ALT/SGPT 150 U/L (16-61); Albumin, Serum 3.7 g/dL (3.2-5.0); Alkaline Phosphatase 52 U/L (45-117); Anion Gap 3 (5-15); BUN 9 mg/dL (7-18); BUN/Creat Ratio 14.9 RATIO (10-20); Calcium,Total 8.9 mg/dL (8.5-10.1); Chloride 103 mmol/L (98-107); Creatinine, Serum 0.61 mg/dL (0.70-1.30); EST Glomerular Filtration Rate 153 mL/min (>60); Est Glom Filt Rate - Afr Amer 185 mL/min (>60); Estimated Creatinine Clearance 154.54 ml/min; Glucose 85 mg/dL (74-106); Potassium 4.1 mmol/L (3.5-5.1); Protein, Total 6.7 g/dL (6.4-8.2); Sodium Level 135 mmol/L (136-145)
[2020-12-20] MEDS: Thiamine Hydrochloride 100 MG Tablet PO (10:07)
[2020-12-20] MEDS: Pantoprazole Sodium 40 MG Tablet PO (10:07)
[2020-12-20] MEDS: Folic Acid 1 MG Tablet PO (10:07)
[2020-12-20 10:17] VITALS: BP 135/95; PULSE 62; RESP 18; TEMP 37.1; O2SAT 98
[2020-12-20 11:50] LABS: Pathologist Review Reviewed
[2020-12-20 11:52] LABS: Pathologist Review Reviewed
--- NOTE | 2020-12-20 11:57 | ADDICTION ---
This service writer met with PT to conduct ASAM, MSE, AUDIT assessments and to plan for d/c. PT A+Ox4 and participated appropriately. All assessments completed, faxed to [facility] and placed in PT's chart. PT to d/c to home and plans to f/u with Matt on 12/26/20 at 4:45 pm for assessment and treatment. PT stated that he is not able to engage in residential treatment at this time due to work responsibilities and his dog. No transportation needs reported by client.
--- NOTE | 2020-12-20 12:31 | PCM.PN.HOSP ---
<Kee Carroll - Last Filed: 12/20/20 12:31> Subjective: Patient is a 45-year-old male comfortably resting in bed, alert and oriented x3. Patient does endorse mild shaking of the hands and feelings of restless legs. Denies any vision changes, hallucinations, loss of consciousness, fever, chills, N/V/D. Vitals/I&O's: Vital Signs Temp Pulse Resp BP Pulse Ox 98.7 F 62 18 135/95 H 98 12/20/20 10:17 12/20/20 10:17 12/20/20 10:17 12/20/20 10:17 12/20/20 10:17 Oxygen Delivery Method Room Air Weight: 187 lb Body Mass Index (BMI) 27.6 Finger Stick Blood Glucose 92 Intake and Output for Last 24 Hours 12/18/20 12/19/20 12/20/20 23:59 23:59 23:59 Intake Total 437 / 837 1000 / 1000 Balance 437 / 837 1000 / 1000 General: Alert, Oriented x3, Cooperative HEENT: Atraumatic Neck: Supple, No JVD, Negative Carotid Bruits Lungs: Clear to auscultation Cardiovascular: Regular rate, No murmurs Abdomen: Bowel Sounds Present, Soft, Non Tender Extremities: No edema, Capillary Refill Less than 3 Seconds Skin: No rashes, No breakdown Musculoskeletal: No Tenderness to Palpation of Joints or Extremities Neurological: Cranial nerves II-XII grossly intact Psych/Mental Status: Normal Affect, Appropriate Laboratory Results 12/19/20 16:05: Urine Opiates Screen NEGATIVE, Urine Methadone Screen NEGATIVE, Ur Barbiturates Screen NEGATIVE, Ur Phencyclidine Scrn NEGATIVE, Ur Amphetamines Screen NEGATIVE, U Methamphetamin-MDMA NEGATIVE, U Benzodiazepines Scrn NEGATIVE, Urine Cocaine Screen NEGATIVE, U Cannabinoids Screen POSITIVE H, Ur Drug Screen Comment 12/19/20 18:28: PT 13.2, INR 1.1 12/19/20 : WBC 2.1 L, RBC 4.14 L, Hgb 13.2, Hct 39.8 L, MCV 96.1 H, MCH 31.9, MCHC 33.2, RDW Std Deviation 44.0 H, RDW Coeff of Raz 12.4, Plt Count 45 L*, MPV 11.0, Immature Gran % (Auto) 0.500, Neut % (Auto) 63.5, Lymph % (Auto) 22.7, [place] % (Auto) 11.4 H, Eos % (Auto) 0.5, Baso % (Auto) 1.4 H, Absolute Neuts (auto) 1.3 L, Absolute Lymphs (auto) 0.48 L, Nucleated RBC % 0, Differential Comment SEE COMMENT, Diff Path Review Reviewed, Platelet Estimate [facility] AUG, RBC Morphology N CHROM, Anisocytosis 1+, Macrocytosis 1+ 12/19/20 : Sodium 141, Potassium 3.4 L, Chloride 106, Carbon Dioxide 26.0, Anion Gap 9, BUN 11, Creatinine 0.67 L, Estim Creat Clear Calc 140.70, Est GFR (MDRD) Af Amer 165, Est GFR (MDRD) Non-Af 136, BUN/Creatinine Ratio 16.4, Glucose 105, Calcium 8.6, Total Bilirubin 0.60, AST 266 H, ALT 179 H, Alkaline Phosphatase 52, Troponin I < 0.015, Total Protein 7.1, Albumin 4.0, Globulin 3.1, Albumin/Globulin Ratio 1.3 12/19/20 : Ethyl Alcohol 338.0 H* 12/20/20 05:50: WBC 2.1 L, RBC 4.08 L, Hgb 13.4, Hct 40.5, MCV 99.3 H, MCH 32.8 H, MCHC 33.1, RDW Std Deviation 45.8 H, RDW Coeff of Raz 12.4, Plt Count 53 L, MPV 10.6, Immature Gran % (Auto) 0.500, Neut % (Auto) 55.9, Lymph % (Auto) 25.8, [place] % (Auto) 15.0 H, Eos % (Auto) 1.9, Baso % (Auto) 0.9, Absolute Neuts (auto) 1.2 L, Absolute Lymphs (auto) 0.55 L, Nucleated RBC % 0, Differential Comment SCANNED, Diff Path Review Reviewed, Platelet Estimate [facility] 12/20/20 05:50: Sodium 135 L, Potassium 4.1, Chloride 103, Carbon Dioxide 29.0, Anion Gap 3 L, BUN 9, Creatinine 0.61 L, Estim Creat Clear Calc 154.54, Est GFR (MDRD) Af Amer 185, Est GFR (MDRD) Non-Af 153, BUN/Creatinine Ratio 14.9, Glucose 85, Calcium 8.9, Total Bilirubin 1.10 H, AST 173 H, ALT 150 H, Alkaline Phosphatase 52, Total Protein 6.7, Albumin 3.7, Globulin 3.0, Albumin/Globulin Ratio 1.2 Current Medications Dicyclomine HCl (Dicyclomine 10 Mg Capsule) 20 mg PO Q6H PRN PRN PRN Reason: abdominal discomfort Folic Acid (Folic Acid 1 Mg Tablet) 1 mg PO DAILY@0800 [facility] Last Admin: 12/20/20 10:07 Dose: 1 mg Documented by: Gabapentin (Gabapentin 300 Mg Capsule) 300 mg PO Q8H PRN PRN PRN Reason: moderate to severe anxiety Hydroxyzine Pamoate (Hydroxyzine Alma 25 Mg Capsule) 50 mg PO Q4H PRN PRN PRN Reason: mild anxiety Loperamide HCl (Loperamide 2 Mg Capsule) 2 mg PO Q4H PRN PRN PRN Reason: LOOSE STOOLS Nicotine (Nicotine 21 Mg Patch) 21 mg TD DAILY [facility] Last Admin: 12/20/20 10:19 Dose: Not Given Documented by: Ondansetron HCl (Ondansetron 8 Mg Tablet) 8 mg PO Q8H PRN PRN PRN Reason: NAUSEA Pantoprazole Sodium (Pantoprazole Sodium 40 Mg Tablet) 40 mg PO DAILY [facility] Last Admin: 12/20/20 10:07 Dose: 40 mg Documented by: Phenobarbital (Phenobarbital 32.4 Mg Tablet) 97.2 mg PO Q4H [facility]; Taper Stop: 12/24/20 02:14 Last Admin: 12/20/20 10:05 Dose: 97.2 mg Documented by: Sodium Chloride (0.9% Saline Lock 10 Ml Syringe) 10 - 40 ml IV UD PRN PRN Reason: SALINE FLUSH Thiamine HCl ([facility] Hydro[facility] 100 Mg Tablet) [facility] Last Admin: 12/20/20 10:07 Dose: 100 mg Documented by: Trazodone HCl (Trazodone 100 Mg Tablet) 100 mg PO QHS PRN PRN Reason: INSOMNIA STROKE Vital Signs/Narrative: Vital Signs Temp Pulse Resp BP Pulse Ox 12/20/20 10:17 98.7 F 62 18 135/95 H 98 Medical Necessity - Tobacco Use Smoking Status: Current every day smoker Tobacco Use: Cigarettes, Chew Assessment/Plan Patient is a 45-year-old male who presented to the ED on 12/19/2020 with a chief complaint of acute alcohol withdrawal and requesting medical stabilization. Today patient does endorse mild shaking of the hands and feelings of restless legs. Denies any other symptoms related to acute alcohol withdrawal. Patient met with addiction medicine counselor and set up a appointment with [facility] on 12/26/2020 for outpatient alcohol abuse management. Patient was pink advised and encouraged to continue to eat and hydrate as much as possible. 1) Acute alcohol intoxication/withdrawal/Alcohol abuse: Mild shaking and feeling of restless legs. Remained admitted. Continue acute alcohol withdrawal protocol; phenobarbital taper, thiamine and folic acid supplementation. As needed Bentyl, Neurontin, Vistaril, Imodium, Zofran and trazodone. Outpatient alcohol abuse appointment scheduled for 12/26/[address] [place] [address] services. 2) Leukopenia/Neutropenia/Thromobocytopenia: Likely related to chronic liver disease secondary to alcoholism. Absolute neutrophil count is 1300, it is mild neutropenia. Patient has been afebrile. Platelet count is 45,000. No active bleeding. No active infection. PT 13.2, INR 1.1. Continue to monitor CBC. 3) Hypertension: 135/95, stable. 4) Depression: Not compliant with home Sertraline, follow-up with PCP on discharge. 5) Tobacco abuse: Continue NicoDerm patch DVT prophylaxis -low risk, prophylaxis not indicated due to thrombocytopenia Patient seen by Kee Carroll PA-C, under the supervision of Dr. Fang. <Alejandra Fang - Last Filed: 12/20/20 13:44> Vitals/I&O's: Vital Signs Temp Pulse Resp BP Pulse Ox 98.7 F 62 18 135/95 H 98 12/20/20 10:17 12/20/20 10:17 12/20/20 10:17 12/20/20 10:17 12/20/20 10:17 Oxygen Delivery Method Room Air Weight: 84.822 kg Body Mass Index (BMI) 27.6 Finger Stick Blood Glucose 92 Intake and Output for Last 24 Hours 12/18/20 12/19/20 12/20/20 23:59 23:59 23:59 Intake Total 437 / 837 1000 / 1000 Balance 437 / 837 1000 / 1000 Laboratory Results 12/19/20 16:05: Urine Opiates Screen NEGATIVE, Urine Methadone Screen NEGATIVE, Ur Barbiturates Screen NEGATIVE, Ur Phencyclidine Scrn NEGATIVE, Ur Amphetamines Screen NEGATIVE, U Methamphetamin-MDMA NEGATIVE, U Benzodiazepines Scrn NEGATIVE, Urine Cocaine Screen NEGATIVE, U Cannabinoids Screen POSITIVE H, Ur Drug Screen Comment 12/19/20 18:28: PT 13.2, INR 1.1 12/19/20 : WBC 2.1 L, RBC 4.14 L, Hgb 13.2, Hct 39.8 L, MCV 96.1 H, MCH 31.9, MCHC 33.2, RDW Std Deviation 44.0 H, RDW Coeff of Raz 12.4, Plt Count 45 L*, MPV 11.0, Immature Gran % (Auto) 0.500, Neut % (Auto) 63.5, Lymph % (Auto) 22.7, [place] % (Auto) 11.4 H, Eos % (Auto) 0.5, Baso % (Auto) 1.4 H, Absolute Neuts (auto) 1.3 L, Absolute Lymphs (auto) 0.48 L, Nucleated RBC % 0, Differential Comment SEE COMMENT, Diff Path Review Reviewed, Platelet Estimate [facility] DEC, RBC Morphology N CHROM, Anisocytosis 1+, Macrocytosis 1+ 12/19/20 : Sodium 141, Potassium 3.4 L, Chloride 106, Carbon Dioxide 26.0, Anion Gap 9, BUN 11, Creatinine 0.67 L, Estim Creat Clear Calc 140.70, Est GFR (MDRD) Af Amer 165, Est GFR (MDRD) Non-Af 136, BUN/Creatinine Ratio 16.4, Glucose 105, Calcium 8.6, Total Bilirubin 0.60, AST 266 H, ALT 179 H, Alkaline Phosphatase 52, Troponin I < 0.015, Total Protein 7.1, Albumin 4.0, Globulin 3.1, Albumin/Globulin Ratio 1.3 12/19/20 : Ethyl Alcohol 338.0 H* 12/20/20 05:50: WBC 2.1 L, RBC 4.08 L, Hgb 13.4, Hct 40.5, MCV 99.3 H, MCH 32.8 H, MCHC 33.1, RDW Std Deviation 45.8 H, RDW Coeff of Raz 12.4, Plt Count 53 L, MPV 10.6, Immature Gran % (Auto) 0.500, Neut % (Auto) 55.9, Lymph % (Auto) 25.8, [place] % (Auto) 15.0 H, Eos % (Auto) 1.9, Baso % (Auto) 0.9, Absolute Neuts (auto) 1.2 L, Absolute Lymphs (auto) 0.55 L, Nucleated RBC % 0, Differential Comment SCANNED, Diff Path Review Reviewed, Platelet Estimate [facility] 12/20/20 05:50: Sodium 135 L, Potassium 4.1, Chloride 103, Carbon Dioxide 29.0, Anion Gap 3 L, BUN 9, Creatinine 0.61 L, Estim Creat Clear Calc 154.54, Est GFR (MDRD) Af Amer 185, Est GFR (MDRD) Non-Af 153, BUN/Creatinine Ratio 14.9, Glucose 85, Calcium 8.9, Total Bilirubin 1.10 H, AST 173 H, ALT 150 H, Alkaline Phosphatase 52, Total Protein 6.7, Albumin 3.7, Globulin 3.0, Albumin/Globulin Ratio 1.2 Current Medications Dicyclomine HCl (Dicyclomine 10 Mg Capsule) 20 mg PO Q6H PRN PRN PRN Reason: abdominal discomfort Folic Acid (Folic Acid 1 Mg Tablet) 1 mg PO DAILY@0800 [facility] Last Admin: 12/20/20 10:07 Dose: 1 mg Documented by: Gabapentin (Gabapentin 300 Mg Capsule) 300 mg PO Q8H PRN PRN PRN Reason: moderate to severe anxiety Hydroxyzine Pamoate (Hydroxyzine [place] 25 Mg Capsule) 50 mg PO Q4H PRN PRN PRN Reason: mild anxiety Loperamide HCl (Loperamide 2 Mg Capsule) 2 mg PO Q4H PRN PRN PRN Reason: LOOSE STOOLS Nicotine (Nicotine 21 Mg Patch) 21 mg TD DAILY [facility] Last Admin: 12/20/20 13:17 Dose: 21 mg Documented by: Nicotine Polacrilex (Nicotine Polacrilex 4 Mg Gum) 4 mg PO Q2H PRN PRN PRN Reason: Nicotine Craving Ondansetron HCl (Ondansetron 8 Mg Tablet) 8 mg PO Q8H PRN PRN PRN Reason: NAUSEA Pantoprazole Sodium (Pantoprazole Sodium 40 Mg Tablet) 40 mg PO DAILY [facility] Last Admin: 12/20/20 10:07 Dose: 40 mg Documented by: Phenobarbital (Phenobarbital 32.4 Mg Tablet) 97.2 mg PO Q4H [facility]; Taper Stop: 12/24/20 02:14 Last Admin: 12/20/20 10:05 Dose: 97.2 mg Documented by: Sodium Chloride (0.9% Saline Lock 10 Ml Syringe) 10 - 40 ml IV UD PRN PRN Reason: SALINE FLUSH Thiamine HCl (Thiamine Hydrochloride 100 Mg Tablet) [facility] Last Admin: 12/20/20 10:07 Dose: 100 mg Documented by: Trazodone HCl (Trazodone 100 Mg Tablet) 100 mg PO QHS PRN PRN Reason: INSOMNIA STROKE Vital Signs/Narrative: Vital Signs Temp Pulse Resp BP Pulse Ox 12/20/20 10:17 98.7 F 62 18 135/95 H 98 Assessment/Plan This patient was seen in conjunction with MYKE Arana. I have independently interviewed and examined the patient and reviewed pertinent historical, laboratory, and other data. Please refer to MYKE Arana's note for his patient's presentation, findings, and recommendations. I have reviewed and his note and concur with his documentation 45-year-old male with history of polysubstance use disorder who comes in requesting for medical stabilization from acute alcohol withdrawal. He was seen and examined. Complains of tremors and restlessness. No other acute events overnight. Physical Exam: Gen: Appears disheveled, not pale, not jaundiced CVS:HS I +II, regular, no murmurs RESP: Diminished at lung bases GI: BS present and normal, soft, nontender, no palpable organs EXT:No edema ASSESSMENT: 1. Acute alcohol withdrawal 2. Hypokalemia 3. Leukopenia/thrombocytopenia, no evidence of infection, likely secondary to bone marrow suppression from alcohol 4. Elevated liver function tests secondary to chronic liver disease 5. Hypertension 6. Depression 7. Nicotine dependence Plan: Continue on the alcohol withdrawal protocol Nicotine replacement Trend labs Inpatient E&M: 11114 Subs Hosp L2
[2020-12-20 14:48] VITALS: BP 141/88; PULSE 70; RESP 18; TEMP 37.3; O2SAT 98
[2020-12-20 17:42] VITALS: BP 137/97; PULSE 66; RESP 18; TEMP 37.3; O2SAT 98
[2020-12-20] MEDS: Acetaminophen 325 MG Tablet 650 MG PO (19:09)
[2020-12-20 21:52] VITALS: BP 132/94; PULSE 63; RESP 18; TEMP 36.4; O2SAT 100
[2020-12-20] MEDS: traZODone 100 MG Tablet PO (22:55)
[2020-12-21 02:44] VITALS: BP 106/79; PULSE 59; RESP 18; TEMP 36.6; O2SAT 100
[2020-12-21] MEDS: Phenobarbital 32.4 MG Tablet 64.8 MG PO ×6 (02:48→21:56)
[2020-12-21] MEDS: Acetaminophen 325 MG Tablet 650 MG PO (02:52)
[2020-12-21] MEDS: hydrOXYzine PAM 25 MG Capsule 50 MG PO (02:52)
[2020-12-21] MEDS: Thiamine Hydrochloride 100 MG Tablet PO (08:09)
[2020-12-21] MEDS: Pantoprazole Sodium 40 MG Tablet PO (08:09)
[2020-12-21] MEDS: Folic Acid 1 MG Tablet PO (08:09)
[2020-12-21 08:46] VITALS: BP 118/77; PULSE 61; RESP 14; TEMP 36.5; O2SAT 98
[2020-12-21 09:00] VITALS: BP 118/77; PULSE 61; RESP 14; TEMP 36.5; O2SAT 98
--- NOTE | 2020-12-21 10:38 | PCM.PN.HOSP ---
<Kee Carroll - Last Filed: 12/21/20 10:38> Subjective: Patient is a 45-year-old male who is comfortably resting in bed, alert and orient x3. Patient reports improvement of symptoms yesterday, namely tremors and leg pain. Patient states that he would feel stable and strong enough to be discharged tomorrow, is confident that he can remain sober until he checks in at [facility] on 12/26/2020. Denies chest pain, shortness of breath, palpitations, fever, chills, N/V/D. Vitals/I&O's: Vital Signs Temp Pulse Resp BP Pulse Ox 97.7 F L 61 14 118/77 98 12/21/20 09:00 12/21/20 09:00 12/21/20 09:00 12/21/20 09:00 12/21/20 09:00 Oxygen Delivery Method Room Air Weight: 187 lb Body Mass Index (BMI) 27.6 Finger Stick Blood Glucose 92 Intake and Output for Last 24 Hours 12/19/20 12/20/20 12/21/20 23:59 23:59 23:59 Intake Total 437 / 837 1800 / 1800 400 / 400 Balance 437 / 837 1800 / 1800 400 / 400 General: Alert, Oriented x3, Cooperative HEENT: Atraumatic, PERRLA, EOMI, Normocephalic Neck: Supple, No JVD, Negative Carotid Bruits Lungs: Clear to auscultation, Normal air movement Cardiovascular: Regular rate, No murmurs Abdomen: Bowel Sounds Present Extremities: No edema, Capillary Refill Less than 3 Seconds Skin: No rashes, No breakdown Musculoskeletal: No Tenderness to Palpation of Joints or Extremities Neurological: Cranial nerves II-XII grossly intact Psych/Mental Status: Normal Affect, Appropriate Laboratory Results 12/19/20 : Diff Path Review Reviewed 12/20/20 05:50: Diff Path Review Reviewed Current Medications Acetaminophen (Acetaminophen 325 Mg Tablet) 650 mg PO Q6H PRN PRN PRN Reason: Pain 1-10 or Fever Last Admin: 12/21/20 02:52 Dose: 650 mg Documented by: Dicyclomine HCl (Dicyclomine 10 Mg Capsule) 20 mg PO Q6H PRN PRN PRN Reason: abdominal discomfort Folic Acid (Folic Acid 1 Mg Tablet) 1 mg PO DAILY@0800 [facility] Last Admin: 12/21/20 08:09 Dose: 1 mg Documented by: Gabapentin (Gabapentin 300 Mg Capsule) 300 mg PO Q8H PRN PRN PRN Reason: moderate to severe anxiety Hydroxyzine Pamoate (Hydroxyzine [place] 25 Mg Capsule) 50 mg PO Q4H PRN PRN PRN Reason: mild anxiety Last Admin: 12/21/20 02:52 Dose: 50 mg Documented by: Loperamide HCl (Loperamide 2 Mg Capsule) 2 mg PO Q4H PRN PRN PRN Reason: LOOSE STOOLS Nicotine (Nicotine 21 Mg Patch) 21 mg TD DAILY [facility] Last Admin: 12/21/20 08:10 Dose: Not Given Documented by: Nicotine Polacrilex (Nicotine Polacrilex 4 Mg Gum) 4 mg PO Q2H PRN PRN PRN Reason: Nicotine Craving Last Admin: 12/20/20 22:55 Dose: 4 mg Documented by: Ondansetron HCl (Ondansetron 8 Mg Tablet) 8 mg PO Q8H PRN PRN PRN Reason: NAUSEA Pantoprazole Sodium (Pantoprazole Sodium 40 Mg Tablet) 40 mg PO DAILY [facility] Last Admin: 12/21/20 08:09 Dose: 40 mg Documented by: Phenobarbital (Phenobarbital 32.4 Mg Tablet) 64.8 mg PO Q4H [facility]; Taper Stop: 12/24/20 02:14 Last Admin: 12/21/20 05:51 Dose: 64.8 mg Documented by: Sodium Chloride (0.9% Saline Lock 10 Ml Syringe) 10 - 40 ml IV UD PRN PRN Reason: SALINE FLUSH Thiamine HCl ([facility]amine Hydrochloride 100 Mg Tablet) [facility] Last Admin: 12/21/20 08:09 Dose: 100 mg Documented by: Trazodone HCl (Trazodone 100 Mg Tablet) 100 mg PO QHS PRN PRN Reason: INSOMNIA Last Admin: 12/20/20 22:55 Dose: 100 mg Documented by: STROKE Vital Signs/Narrative: Vital Signs Temp Pulse Resp BP Pulse Ox 12/21/20 09:00 97.7 F L 61 14 118/77 98 12/21/20 08:46 97.7 F L 61 14 118/77 98 Medical Necessity - Tobacco Use Smoking Status: Current every day smoker Tobacco Use: Cigarettes, Chew Assessment/Plan Patient is a 45-year-old male who presented to the ED on 12/19/2020 with a chief complaint of acute alcohol withdrawal and requesting medical stabilization. Today patient reports improvement of his hand tremors and leg pain from yesterday. Denies any other symptoms related to acute alcohol withdrawal. Patient believes he is medically stable enough to be discharged tomorrow and feels that he can maintain his sobriety until his appointment at [facility] on 12/26/2020. Planning discharge for tomorrow. 1) Acute alcohol intoxication/withdrawal/Alcohol abuse: Continue acute alcohol withdrawal protocol; phenobarbital taper, thiamine and folic acid supplementation. As needed Bentyl, Neurontin, Vistaril, Imodium, Zofran and trazodone. Outpatient alcohol abuse appointment scheduled for 12/26/[address] [place] [address] services. 2) Leukopenia/Neutropenia/Thromobocytopenia: Likely related to chronic liver disease secondary to alcoholism. Absolute neutrophil count is 1300, it is mild neutropenia. Patient has been afebrile. Platelet count is 45,000. No active bleeding. No active infection. PT 13.2, INR 1.1. Continue to monitor CBC. 3) Hypertension: 135/95, stable. 4) Depression: Not compliant with home Sertraline, follow-up with PCP on discharge. 5) Tobacco abuse: Continue NicoDerm patch DVT prophylaxis -low risk, prophylaxis not indicated due to thrombocytopenia Patient seen by Kee Carroll PA-C, under the supervision of Dr. Wood. <Alli Wood F - Last Filed: 12/21/20 14:06> Vitals/I&O's: Vital Signs Temp Pulse Resp BP Pulse Ox 98.2 F 68 14 114/84 H 96 12/21/20 13:49 12/21/20 13:49 12/21/20 13:49 12/21/20 13:49 12/21/20 13:49 Oxygen Delivery Method Room Air Weight: 187 lb Body Mass Index (BMI) 27.6 Finger Stick Blood Glucose 92 Intake and Output for Last 24 Hours 12/19/20 12/20/20 12/21/20 23:59 23:59 23:59 Intake Total 437 / 837 1800 / 1800 400 / 400 Balance 437 / 837 1800 / 1800 400 / 400 Current Medications Acetaminophen (Acetaminophen 325 Mg Tablet) 650 mg PO Q6H PRN PRN PRN Reason: Pain 1-10 or Fever Last Admin: 12/21/20 02:52 Dose: 650 mg Documented by: Dicyclomine HCl (Dicyclomine 10 Mg Capsule) 20 mg PO Q6H PRN PRN PRN Reason: abdominal discomfort Folic Acid (Folic Acid 1 Mg Tablet) 1 mg PO DAILY@0800 [facility] Last Admin: 12/21/20 08:09 Dose: 1 mg Documented by: Gabapentin (Gabapentin 300 Mg Capsule) 300 mg PO Q8H PRN PRN PRN Reason: moderate to severe anxiety Hydroxyzine Pamoate (Hydroxyzine [place] 25 Mg Capsule) 50 mg PO Q4H PRN PRN PRN Reason: mild anxiety Last Admin: 12/21/20 02:52 Dose: 50 mg Documented by: Loperamide HCl (Loperamide 2 Mg Capsule) 2 mg PO Q4H PRN PRN PRN Reason: LOOSE STOOLS Nicotine (Nicotine 21 Mg Patch) 21 mg TD DAILY [facility] Last Admin: 12/21/20 10:58 Dose: 21 mg Documented by: Nicotine Polacrilex (Nicotine Polacrilex 4 Mg Gum) 4 mg PO Q2H PRN PRN PRN Reason: Nicotine Craving Last Admin: 12/21/20 13:52 Dose: 4 mg Documented by: Ondansetron HCl (Ondansetron 8 Mg Tablet) 8 mg PO Q8H PRN PRN PRN Reason: NAUSEA Pantoprazole Sodium (Pantoprazole Sodium 40 Mg Tablet) 40 mg PO DAILY [facility] Last Admin: 12/21/20 08:09 Dose: 40 mg Documented by: Phenobarbital (Phenobarbital 32.4 Mg Tablet) 64.8 mg PO Q4H [facility]; Taper Stop: 12/24/20 02:14 Last Admin: 12/21/20 13:52 Dose: 64.8 mg Documented by: Sodium Chloride (0.9% Saline Lock 10 Ml Syringe) 10 - 40 ml IV UD PRN PRN Reason: SALINE FLUSH Thiamine HCl (Thiamine Hydrochloride 100 Mg Tablet) [facility] Last Admin: 12/21/20 08:09 Dose: 100 mg Documented by: Trazodone HCl (Trazodone 100 Mg Tablet) 100 mg PO QHS PRN PRN Reason: INSOMNIA Last Admin: 12/20/20 22:55 Dose: 100 mg Documented by: STROKE Vital Signs/Narrative: Vital Signs Temp Pulse Resp BP Pulse Ox 12/21/20 13:49 98.2 F 68 14 114/84 H 96 Addendum: Dr. Wood I personally examined the patient and reviewed the chart. I agree with the above. 45-year-old male presented to the hospital with acute alcohol withdrawal. He is requesting detox and will be followed up as an outpatient [facility] on . He is tolerating the withdrawal protocol well and hopes to be stable enough for discharge tomorrow. He does have a thrombocytopenia as well as leukopenia likely secondary to his alcohol abuse and liver disease. LFTs are stable, on discharge he will need to have outpatient follow-up with his PCP. Inpatient E&M: 67013 Subs Hosp L2
[2020-12-21 13:49] VITALS: BP 114/84; PULSE 68; RESP 14; TEMP 36.8; O2SAT 96
[2020-12-21] MEDS: traZODone 100 MG Tablet PO (21:56)
[2020-12-21] MEDS: Loperamide 2 MG Capsule PO (22:00)
[2020-12-21 22:05] VITALS: BP 148/88; PULSE 101; RESP 16; TEMP 36.1; O2SAT 98
[2020-12-22] MEDS: Phenobarbital 32.4 MG Tablet 64.8 MG PO ×2 (02:54→07:56)
[2020-12-22 02:56] VITALS: BP 117/87; PULSE 96; RESP 16; TEMP 36.1; O2SAT 97
[2020-12-22] MEDS: Folic Acid 1 MG Tablet PO (07:56)
[2020-12-22] MEDS: Thiamine Hydrochloride 100 MG Tablet PO (07:56)
[2020-12-22] MEDS: Pantoprazole Sodium 40 MG Tablet PO (07:56)
[2020-12-22 08:36] VITALS: BP 105/73; PULSE 62; RESP 13; TEMP 36.6; O2SAT 98
[2020-12-22 08:37] VITALS: BP 105/73; PULSE 62; RESP 13; TEMP 36.6; O2SAT 98
--- NOTE | 2020-12-22 10:24 | PCM.DC ---
- Discharge Diagnoses Current Active Problems: Current Active and Chronic Problems Depression (Chronic) Alcohol abuse (Chronic) HTN (hypertension) (Chronic) History of tobacco use (Chronic) You will use the following diet at home:: No restrictions Your food should be the consistency of: Regular Your liquids should be the consistency of: Regular/Thin Allergies/Adverse Reactions: Allergies No Known Allergies Allergy (Verified 12/19/20 14:56) Medications to take at Discharge Aspirin/Caffeine [Back-Body Pain 500-32.5MG Cplt] 2 tablet PO DAILY 12/19/20 Primary Care Physician: Colin Santana MD [Primary Care Provider] - Please follow up with your Primary Care Physician in: Within the next 2 weeks Test Results: Test results from this visit will be discussed in further detail at your follow-up appointment, if applicable. Please Follow Up With: [facility] behavioral services - [phone] When: 12/26/2020 Proposed Discharge Date: 12/22/20
--- NOTE | 2020-12-22 10:29 | PCM.DC.SUM ---
<Kee Carroll - Last Filed: 12/22/20 10:29> Discharge Date and Diagnosis Date of Admission: 12/19/20 Date of Discharge: 12/22/20 - Primary Discharge Diagnosis Acute Problems: Acute alcohol withdrawal/medical stabilization - Secondary Discharge Diagnosis Chronic Problems: Chronic Problems Depression (Chronic) Alcohol abuse (Chronic) HTN (hypertension) (Chronic) History of tobacco use (Chronic) Hospital Course and Treatment Summary of Care Provided: Patient is a 45-year-old male who presented to the ED on 12/19/2020 with a chief complaint of acute alcohol withdrawal and requesting medical stabilization. Today patient reports no hand tremors and leg pain from his admission. Denies any other symptoms related to acute alcohol withdrawal. Patient believes he is medically stable enough to be discharged today and feels that he can maintain his sobriety until his appointment at [facility] on 12/26/2020. Patient reports having a support network that is composed of his family and friends outside the hospital that can help him maintain his sobriety until his scheduled appointment. Patient to be discharged today. 1) Acute alcohol intoxication/withdrawal/Alcohol abuse: Attend scheduled appointment with [facility] on 12/26/2020 at 4:45 PM. 2) Leukopenia/Neutropenia/Thromobocytopenia: Likely related to chronic liver disease secondary to alcoholism. Absolute neutrophil count is 1300, it is mild neutropenia. Patient has been afebrile. Platelet count is 45,000. No active bleeding. No active infection. PT 13.2, INR 1.1. Stable. 3) Hypertension: 135/95, stable. 4) Depression: Not compliant with home Sertraline, follow-up with PCP on discharge. 5) Tobacco abuse: Cessation encouraged. Patient seen by Kee Carroll PA-C, under the supervision of Dr. Wood. Subjective: Patient is a 45-year-old male who is comfortably resting in bed, alert and oriented x3. Patient reports continued improvement from admission and currently reports no tremors or pain in the legs. Patient is agreeable and feels strong enough for discharge today, reports having a support network of friends and family. Feels confident that he can maintain his sobriety until his appointment with [facility] on 12/26/2020.Denies chest pain, shortness of breath, palpitations, fever, chills, N/V/D. - Physical Exam Vitals/I&O's: Vital Signs Temp Pulse Resp BP Pulse Ox 97.9 F 62 13 105/73 98 12/22/20 08:37 12/22/20 08:37 12/22/20 08:37 12/22/20 08:37 12/22/20 08:37 Oxygen Delivery Method Room Air Weight: 187 lb Body Mass Index (BMI) 27.6 Finger Stick Blood Glucose 92 Intake and Output for Last 24 Hours 12/20/20 12/21/20 12/22/20 23:59 23:59 23:59 Intake Total 1800 / 1800 400 / 400 Balance 1800 / 1800 400 / 400 General: Alert, Oriented x3, Cooperative HEENT: Atraumatic, PERRLA, EOMI, Normocephalic Neck: Supple Lungs: Clear to auscultation, Normal air movement Cardiovascular: Regular rate, No murmurs Abdomen: Bowel Sounds Present, Soft, Non Tender Extremities: No edema, Capillary Refill Less than 3 Seconds Skin: No rashes, No breakdown Musculoskeletal: No Tenderness to Palpation of Joints or Extremities Neurological: Cranial nerves II-XII grossly intact Psych/Mental Status: Normal Affect, Appropriate Current Medications Acetaminophen (Acetaminophen 325 Mg Tablet) 650 mg PO Q6H PRN PRN PRN Reason: Pain 1-10 or Fever Last Admin: 12/21/20 02:52 Dose: 650 mg Documented by: Dicyclomine HCl (Dicyclomine 10 Mg Capsule) 20 mg PO Q6H PRN PRN PRN Reason: abdominal discomfort Folic Acid (Folic Acid 1 Mg Tablet) 1 mg PO DAILY@0800 [facility] Last Admin: 12/22/20 07:56 Dose: 1 mg Documented by: Gabapentin (Gabapentin 300 Mg Capsule) 300 mg PO Q8H PRN PRN PRN Reason: moderate to severe anxiety Hydroxyzine Pamoate (Hydroxyzine Alma 25 Mg Capsule) 50 mg PO Q4H PRN PRN PRN Reason: mild anxiety Last Admin: 12/21/20 02:52 Dose: 50 mg Documented by: Loperamide HCl (Loperamide 2 Mg Capsule) 2 mg PO Q4H PRN PRN PRN Reason: LOOSE STOOLS Last Admin: 12/21/20 22:00 Dose: 2 mg Documented by: Nicotine (Nicotine 21 Mg Patch) 21 mg TD DAILY [facility] Last Admin: 12/21/20 10:58 Dose: 21 mg Documented by: Nicotine Polacrilex (Nicotine Polacrilex 4 Mg Gum) 4 mg PO Q2H PRN PRN PRN Reason: Nicotine Craving Last Admin: 12/21/20 21:55 Dose: 4 mg Documented by: Ondansetron HCl (Ondansetron 8 Mg Tablet) 8 mg PO Q8H PRN PRN PRN Reason: NAUSEA Pantoprazole Sodium (Pantoprazole Sodium 40 Mg Tablet) 40 mg PO DAILY [facility] Last Admin: 12/22/20 07:56 Dose: 40 mg Documented by: Phenobarbital (Phenobarbital 32.4 Mg Tablet) 64.8 mg PO Q6H [facility]; Taper Stop: 12/24/20 02:14 Last Admin: 12/22/20 07:56 Dose: 64.8 mg Documented by: Sodium Chloride (0.9% Saline Lock 10 Ml Syringe) 10 - 40 ml IV UD PRN PRN Reason: SALINE FLUSH Thiamine HCl ([facility] Hydro[facility] 100 Mg Tablet) [facility] Last Admin: 12/22/20 07:56 Dose: 100 mg Documented by: Trazodone HCl (Trazodone 100 Mg Tablet) 100 mg PO QHS PRN PRN Reason: INSOMNIA Last Admin: 12/21/20 21:56 Dose: 100 mg Documented by: Discharge Diet: No Restrictions Discharge Activity: Return to Normal Activity Home Medications: Medications to take at Discharge Aspirin/Caffeine [Back-Body Pain 500-32.5MG Cplt] 2 tablet PO DAILY 12/19/20 Primary Care Physician: Colin Santana MD [Primary Care Provider] - Please follow up with your Primary Care Physician in: Within the next 2 weeks Please Follow Up With: [address] [place] [id number] - [phone] When: 12/26/2020 Disposition: Home Minutes spent on discharge:: 35 Patient Condition:: Good Medical Necessity - Tobacco Use Smoking Status: Current every day smoker Tobacco Use: Cigarettes, Chew Meaningful Use Info Meaningful Use Diagnoses (Choose all that apply): None applicable <Alli Wood - Last Filed: 12/22/20 11:38> Discharge Date and Diagnosis - Secondary Discharge Diagnosis Chronic Problems: Chronic Problems Depression (Chronic) Alcohol abuse (Chronic) HTN (hypertension) (Chronic) History of tobacco use (Chronic) Hospital Course and Treatment Imaging Results: Clinical Impression(s) from Imaging Studies Brain CT 12/19/20 14:58 IMPRESSION: Normal unenhanced CT scan of the brain. Electronically Signed: Hema Wilson MD at 15:29 EDT , Service support , Operations: None Procedures: None Summary of Care Provided: The patient is a 45 year old M [] - Physical Exam Vitals/I&O's: Vital Signs Temp Pulse Resp BP Pulse Ox 97.9 F 62 13 105/73 98 12/22/20 08:37 12/22/20 08:37 12/22/20 08:37 12/22/20 08:37 12/22/20 08:37 Oxygen Delivery Method Room Air Weight: 187 lb Body Mass Index (BMI) 27.6 Finger Stick Blood Glucose 92 Intake and Output for Last 24 Hours 12/20/20 12/21/20 12/22/20 23:59 23:59 23:59 Intake Total 1800 / 1800 400 / 400 Balance 1800 / 1800 400 / 400 Current Medications Acetaminophen (Acetaminophen 325 Mg Tablet) 650 mg PO Q6H PRN PRN PRN Reason: Pain 1-10 or Fever Last Admin: 12/21/20 02:52 Dose: 650 mg Documented by: Dicyclomine HCl (Dicyclomine 10 Mg Capsule) 20 mg PO Q6H PRN PRN PRN Reason: abdominal discomfort Folic Acid (Folic Acid 1 Mg Tablet) 1 mg PO DAILY@0800 [facility] Last Admin: 12/22/20 07:56 Dose: 1 mg Documented by: Gabapentin (Gabapentin 300 Mg Capsule) 300 mg PO Q8H PRN PRN PRN Reason: moderate to severe anxiety Hydroxyzine Pamoate (Hydroxyzine Alma 25 Mg Capsule) 50 mg PO Q4H PRN PRN PRN Reason: mild anxiety Last Admin: 12/21/20 02:52 Dose: 50 mg Documented by: Loperamide HCl (Loperamide 2 Mg Capsule) 2 mg PO Q4H PRN PRN PRN Reason: LOOSE STOOLS Last Admin: 12/21/20 22:00 Dose: 2 mg Documented by: Nicotine (Nicotine 21 Mg Patch) 21 mg TD DAILY [facility] Last Admin: 12/21/20 10:58 Dose: 21 mg Documented by: Nicotine Polacrilex (Nicotine Polacrilex 4 Mg Gum) 4 mg PO Q2H PRN PRN PRN Reason: Nicotine Craving Last Admin: 12/21/20 21:55 Dose: 4 mg Documented by: Ondansetron HCl (Ondansetron 8 Mg Tablet) 8 mg PO Q8H PRN PRN PRN Reason: NAUSEA Pantoprazole Sodium (Pantoprazole Sodium 40 Mg Tablet) 40 mg PO DAILY [facility] Last Admin: 12/22/20 07:56 Dose: 40 mg Documented by: Phenobarbital (Phenobarbital 32.4 Mg Tablet) 64.8 mg PO Q6H CJ; Taper Stop: 12/24/20 02:14 Last Admin: 12/22/20 07:56 Dose: 64.8 mg Documented by: Sodium Chloride (0.9% Saline Lock 10 Ml Syringe) 10 - 40 ml IV UD PRN PRN Reason: SALINE FLUSH Thiamine HCl (Thiamine Hydrochloride 100 Mg Tablet) 100 mg PO DAILYCM [facility] Last Admin: 12/22/20 07:56 Dose: 100 mg Documented by: Trazodone HCl (Trazodone 100 Mg Tablet) 100 mg PO QHS PRN PRN Reason: INSOMNIA Last Admin: 12/21/20 21:56 Dose: 100 mg Documented by: Addendum: Dr. Wood I personally examined the patient and reviewed the chart. I agree with the above. 45-year-old male presented to the hospital with acute alcohol withdrawal. He is requesting detox and will be followed up as an outpatient [facility] on . He is tolerating the withdrawal protocol well and hopes to be stable enough for discharge tomorrow. He does have a thrombocytopenia as well as leukopenia likely secondary to his alcohol abuse and liver disease. LFTs are stable, on discharge he will need to have outpatient follow-up with his PCP. 12/22/2020: Doing much better today, and would like to go home. He does not want a wait until the taper is completed, says that he is back to his baseline. He does have outpatient follow-up set up for with [facility], and will need to follow-up with his PCP as an outpatient as well for his cytopenias that are likely related to alcohol use. Inpatient E&M: [id number] [facility]
== END 2020-12-22 11:52 | disposition home or self-care (01) | DRG 897 ==
LOC: ED 15:17 → MS3 17:50
PROVIDERS: Admitting Provider Hospitalist; Emergency Provider Emergency Medicine; PCP Family Medicine; Visit Provider Family Medicine
DX: F10.239 Alcohol dependence with withdrawal, unspecified (principal); F10.229 Alcohol dependence with intoxication, unspecified; K70.9 Alcoholic liver disease, unspecified; G62.1 Alcoholic polyneuropathy; Y90.8 Blood alcohol level of 240 mg/100 ml or more; E87.6 Hypokalemia; I10 Essential (primary) hypertension; D69.6 Thrombocytopenia, unspecified; D70.9 Neutropenia, unspecified; F11.11 Opioid abuse, in remission; F32.9 Major depressive disorder, single episode, unspecified; F17.210 Nicotine dependence, cigarettes, uncomplicated; Z91.14 Patient's other noncompliance with medication regimen; Z86.16 Personal history of COVID-19
CPT/HCPCS: 36415; 70450; 80053; 80307; 82077; 84484; 85025; 85610; 93005; 99285; 99406; J7030; A4216

== ENCOUNTER 2021-03-02 17:16 | Emergency (ER) | payer OTHER, SELFPAY ==
[2021-03-02 17:17] VITALS: BP 110/87; PULSE 114; RESP 22; TEMP 37.3; O2SAT 97; BMI 28.0
[2021-03-02 17:46] VITALS: BP 135/91; PULSE 99; RESP 20; TEMP 37.4; O2SAT 100
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
[2021-03-02 18:18] VITALS: BP 127/90; PULSE 90; RESP 18; O2SAT 98
[2021-03-02 18:18] LABS: Absolute Lymphocyte Count 0.95 X10^3/uL (0.83-4.51); Absolute Neutrophil Count 1.3 X10^3/uL (2.0-7.7); Basophil# 0.03 X10^3/uL; Basophil% 1.1 % (0-1); Eosinophil# 0.01 X10^3/uL; Eosinophils% 0.4 % (0-5); Hematocrit 43.2 % (40-54); Lymphocyte # 0.95 X10^3/ul (0.83-4.51); Lymphocyte % 34.3 % (19-41); Mean Corp Hgb Conc 34.7 g/dL (32-36); Mean Corpuscular Volume 95.2 fL (80-94); Monocyte# 0.45 X10^3/uL; Monocyte% 16.2 % (0-10); NRBC Flagged by Analyzer 0 % (0-5); Neutrophil # 1.32 X10^3/uL (2.7-7.7); Neutrophil % 47.6 % (47-70); POSITIVE COUNT YES; RBC Distribution Width CV 13.7 % (11.6-14.6); RBC Distribution Width SD 48.6 fl (35.1-43.9); Red Blood Count 4.54 M/mm3 (4.6-6.2); White Blood Count 2.8 K/mm3 (4.4-11.0)
[2021-03-02 18:20] LABS: International Normalized Ratio 0.9; Prothrombin Time (Protime)PT. 11.7 SECONDS (11.7-14.9)
[2021-03-02 18:21] LABS: Partial Thromboplast Time 24.8 Seconds (24.1-36.2)
[2021-03-02] MEDS: Lidocaine 1% (20 ml mdv) 20 ML Vial INFILT (18:21)
[2021-03-02 18:22] LABS: AST(SGOT) 240 U/L (15-37); Alanine Aminotransfer ALT/SGPT 134 U/L (16-61); Albumin, Serum 4.4 g/dL (3.2-5.0); Alkaline Phosphatase 64 U/L (45-117); Anion Gap 14 (5-15); BUN 8 mg/dL (7-18); Bilirubin, Direct 0.28 mg/dL (0.00-0.30); Calcium,Total 8.6 mg/dL (8.5-10.1); Chloride 105 mmol/L (98-107); Creatinine, Serum 0.72 mg/dL (0.70-1.30); EST Glomerular Filtration Rate 125 mL/min (>60); Est Glom Filt Rate - Afr Amer 151 mL/min (>60); Estimated Creatinine Clearance 130.93 ml/min; Globulin 3.2 g/dL (2.2-4.2); Glucose 110 mg/dL (74-106); Potassium 3.4 mmol/L (3.5-5.1); Protein, Total 7.6 g/dL (6.4-8.2); Sodium Level 143 mmol/L (136-145)
--- NOTE | 2021-03-02 18:34 | RAD_ITS ---
STUDY: X-RAY - LEFT RADIUS AND ULNA REASON FOR EXAM: Male, 45 years old. INJURY TECHNIQUE: 2 view(s) of the forearm. COMPARISON: None. FINDINGS: No acute fracture or dislocation. No destructive bone changes. Joint spaces are well-maintained. Normal alignment. Soft tissues are unremarkable. No radiopaque foreign body or soft tissue gas. RAD/Forearm 2 Views IMPRESSION: Normal x-ray examination of the radius and ulna. Electronically Signed: Daisy Bullock MD at 20:11 EDT Tel , Service support ,
--- NOTE | 2021-03-02 18:34 | RAD_ITS ---
STUDY: X-RAY - LEFT HUMERUS REASON FOR EXAM: Male, 45 years old. INJURY TECHNIQUE: 2 view(s) of the humerus. COMPARISON: None. FINDINGS: No acute fracture or dislocation. No destructive bone changes. Joint spaces are well-maintained. Normal alignment. Soft tissues are unremarkable. No radiopaque foreign body or soft tissue gas. RAD/Humerus min 2 Views IMPRESSION: Normal x-ray examination of the humerus. Electronically Signed: Daisy Bullock MD at 20:16 EDT Tel , Service support ,
[2021-03-02 19:03] LABS: Differential Indicated SCAN CRITERIA MET
[2021-03-02 19:04] LABS: Platelet Count 44 K/mm3 (150-450)
[2021-03-02 19:23] LABS: Differential Comment SCANNED; Platelet Estimate MKD DEC (ADEQ); Red Cell Morphology NORM C+C NORMAL (NORM C&C)
[2021-03-02 20:13] VITALS: BP 131/91; PULSE 68; RESP 18; O2SAT 93
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
[2021-03-02 20:23] VITALS: PULSE 68
[2021-03-04 12:48] LABS: Pathologist Review Reviewed
== END 2021-03-02 20:24 | disposition home or self-care (01) ==
PROVIDERS: Emergency Provider Emergency Medicine; PCP Family Medicine
DX: S01.111A Laceration without foreign body of right eyelid and periocular area, initial encounter (principal); S20.213A Contusion of bilateral front wall of thorax, initial encounter; S00.212A Abrasion of left eyelid and periocular area, initial encounter; S50.312A Abrasion of left elbow, initial encounter; Y00.XXXA Assault by blunt object, initial encounter; Y93.9 Activity, unspecified; Y92.9 Unspecified place or not applicable; Y99.9 Unspecified external cause status; I10 Essential (primary) hypertension; F17.210 Nicotine dependence, cigarettes, uncomplicated; Z86.73 Personal history of transient ischemic attack (TIA), and cerebral infarction without residual deficits; Z79.82 Long term (current) use of aspirin
CPT/HCPCS: 12011; 70450; 70486; 71250; 72125; 73060; 73090; 80048; 80076; 85025; 85610; 85730; 99285

== ENCOUNTER 2023-02-22 22:22 | Inpatient (IN) | payer SELFPAY ==
[2023-02-22 22:23] VITALS: BP 119/93; PULSE 104; RESP 18; TEMP 36.3; O2SAT 98; BMI 26.6
--- NOTE | 2023-02-22 23:39 | EDS_ITS ---
HPI History of Present Illness Chief Complaint: Substance Abuse Informant: patient Narrative Narrative: Presenting to ED for alcohol detox assistance. Drinks at least 1/5 of vodka daily last drink was 3 hours ago. He denies recreational drug use, states previously was on opiates for a toe amputation however stopped it completely 2016 after his mother committed suicide. He states he overdosed on this previously. He wakes up with morning tremors which alcohol would help. He states withdrawal seizures in the past however cannot recall when the last one was. He has had help in the past however none recently. Denies suicidal homicidal ideations. Medically admits to paresthesias to the feet for the past month. Over the past month also noted cramping left lower leg. He states over the last week black stools daily. Denies abdominal pain. States he only takes baby aspirin. No cardiac history. Previously on blood pressure medicines, does not follow PCP. States he does currently work. Prior similar symptoms: Yes PFSH PFSH Medical History (Updated 02/23/23 @ 05:[address] Amarjit Leyva MD) Alcohol abuse Asthma Hypertension Kidney stones Seizures Sleep apnea Smoker Substance abuse TIA (transient ischemic attack) Home Medications aspirin 81 mg capsule 81 mg PO DAILY 02/22/23 [History Last Taken Unknown] Allergy/AdvReac Type Severity Reaction Status Date / Time No Known Allergies Allergy Verified 02/22/23 22:23 Family History (Updated 02/23/23 @ 05:[address] Amarjit Leyva MD) Other Alcoholism Heart disease Suicide Social History Smoking Status: Current every day smoker tobacco type: cigarettes ROS ROS ED Constitutional Constitutional ED: Denies chills, fever(s) or sweats Eyes Eyes: Denies change in vision ENT ENT ED: Denies dysphagia or sore throat Cardiovascular Cardiovascular: Denies chest pain, leg edema, palpitations or racing heartbeat Respiratory/Chest Respiratory/Chest: Denies cough, dyspnea or dyspnea on exertion Gastrointestinal Gastrointestinal: Reports other Details: Black stools ; Denies abdominal pain, diarrhea, nausea or vomiting Genitourinary Genitourinary ED: Denies dysuria, hematuria or urinary frequency Musculoskeletal Musculoskeletal: Denies back pain, extremity pain or neck pain Integumentary Denies rash or wounds Neurologic Neurologic: Reports paresthesias; Denies headache(s) or weakness EXAM Physical Exam Const Vital Signs: 02/22/23 22:23 02/23/23 02:05 02/23/23 02:05 Temperature 97.4 F L 97 F L Temperature Source Temporal Temporal Pulse Rate 104 H 101 H Respiratory Rate 18 16 16 Respiratory Effort Respiratory Depth Respiratory Pattern Blood Pressure 119/93 H 119/93 H Blood Pressure Mean 101 101 Blood Pressure Source Blood Pressure Position Blood Pressure Location Pulse Ox 98 99 Oxygen Delivery Method 02/23/23 02:33 02/23/23 02:23 Temperature 98.1 F Temperature Source Oral Pulse Rate 73 Respiratory Rate 18 Respiratory Effort Normal Non-Labored Respiratory Depth Normal Respiratory Pattern Normal Blood Pressure 131/91 H Blood Pressure Mean 104 Blood Pressure Source Monitor Blood Pressure Position Semi-Fowlers Blood Pressure Location Left Arm Pulse Ox 99 Oxygen Delivery Method Room Air Room Air Positive well nourished and well developed Constitutional Narrative: Mild intoxicated however cooperative and answering questions appropriately. General Appearance ED: well developed and NAD; Negative for pallor HEENT Reports moist mucous membranes normocephalic and atraumatic Eyes PERRL, EOMs intact bilaterally and conjunctivae normal General Eye ED: Yes normal appearance of both eyes Neck no lymphadenopathy and supple General: Negative for tenderness Chest Wall Chest: Negative for tenderness Resp normal respiratory effort and normal air movement Effort and Inspection: symmetric chest movement; Negative for respiratory distress Cardio regular rate, regular rhythm and no murmurs Peripheral Pulses: pulses 2+ throughout GI normal to inspection, nondistended, normoactive bowel sounds and non-tender Palpation: Negative for guarding or rebound tenderness present Back/Spine no CVA tenderness and no thoracic nor lumbar tenderness Extremity normal to inspection General Extremety ED: Negative for edema or tenderness General Extremity: Negative for edema Neuro oriented x3 and no sensory deficits noted Sensorium / Orientation: awake and alert Skin no rashes or lesions noted and no wounds General Skin Exam: Negative for pallor MDM MDM MDM Narrative Medical decision making narrative: Interventions / MDM: Differential diagnosis: Alcohol dependence, GI bleed, paresthesias Diagnosis considered but do not suspect: N/A My EKG interpretation: N/A Imaging independently reviewed and interpreted by myself: N/A External documents reviewed: N/A Test considered but not ordered:N/A ED course: Presenting for alcohol detox. Reporting black stools. Clinically not anemic. Stool guaiac obtained negative. Hemoglobin 14. He had platelets of 44 white count 2.3 similar from his previous labs 2-year well. Alcohol level 479. Clinically walking and talking. I did check B12 and folate levels due to his paresthesias which was normal. Toxicology screen positive for THC. Re-evaluation: stable, further discussion with the patient he states when he stopped drinking eventually his paresthesias did improve. Patient requesting alcohol detox I discussed with hospitalist Dr. Leyva for admission. Disposition discussed with patient/family/significant other: Patient Case discussed with consulting clinician: Hospitalist This note was generated with [employer] dictation software. It may contain incorrect words, spelling, and punctuation that were not noted in checking the note before signing. Lab Data Attestation: I reviewed the patient's lab results. Labs: Laboratory Results - last 24 hr 02/22/23 02/22/23 02/22/23 23:50 23:50 23:50 WBC 2.3 L RBC 4.47 L Hgb 14.3 Hct 41.0 MCV 91.7 MCH 32.0 MCHC 34.9 RDW Std Deviation 49.1 H RDW Coeff of Raz 14.5 Plt Count 44 L* MPV 11.1 Immature Gran % (Auto) 0.400 Neut % (Auto) 38.4 L Lymph % (Auto) 43.6 H Ida % (Auto) 16.3 H Eos % (Auto) 0.4 Baso % (Auto) 0.9 Absolute Neuts (auto) 0.9 L Absolute Lymphs (auto) 0.99 Nucleated RBC % 0 Differential Comment SCANNED Diff Path Review May foll Platelet Estimate MKD DEC PT 12.9 INR 1.0 APTT 26.4 Sodium Potassium Chloride Carbon Dioxide Anion Gap BUN Creatinine Estim Creat Clear Calc Est GFR (MDRD) Af Amer Est GFR (MDRD) Non-Af BUN/Creatinine Ratio Glucose Calcium Total Bilirubin Direct Bilirubin AST ALT Alkaline Phosphatase Total Protein Albumin Globulin Vitamin B12 549 Folate Urine Color Urine Clarity Urine pH Ur Specific [place] Urine Protein Urine Glucose (UA) Urine Ketones Urine Occult Blood Urine Nitrite Urine Bilirubin Urine Urobilinogen Ur Leukocyte Esterase Urine RBC Urine WBC Ur Squamous Epith Cells Urine Bacteria Urine Mucus Urine Opiates Screen Urine Methadone Screen Ur Barbiturates Screen Ur Phencyclidine Scrn Ur Amphetamines Screen MDMA (Ecstasy) Screen U Benzodiazepines Scrn Urine Cocaine Screen U Cannabinoids Screen Ur Drug Screen Comment Ethyl Alcohol 02/22/23 02/22/23 02/22/23 23:50 23:50 23:50 WBC RBC Hgb Hct MCV MCH MCHC RDW Std Deviation RDW Coeff of Raz Plt Count MPV Immature Gran % (Auto) Neut % (Auto) Lymph % (Auto) Ida % (Auto) Eos % (Auto) Baso % (Auto) Absolute Neuts (auto) Absolute Lymphs (auto) Nucleated RBC % Differential Comment Diff Path Review Platelet Estimate PT INR APTT Sodium 143 Potassium 3.5 Chloride 106 Carbon Dioxide 24.0 Anion Gap 13 BUN 9 Creatinine 0.80 Estim Creat Clear Calc 119.13 Est GFR (MDRD) Af Amer 133 Est GFR (MDRD) Non-Af 110 BUN/Creatinine Ratio 11.2 Glucose 88 Calcium 8.8 Total Bilirubin 0.60 Direct Bilirubin 0.33 H AST 316 H ALT 205 H Alkaline Phosphatase 62 Total Protein 7.7 Albumin 4.3 Globulin 3.4 Vitamin B12 Folate 6.70 Urine Color Urine Clarity Urine pH Ur Specific [place] Urine Protein Urine Glucose (UA) Urine Ketones Urine Occult Blood Urine Nitrite Urine Bilirubin Urine Urobilinogen Ur Leukocyte Esterase Urine RBC Urine WBC Ur Squamous Epith Cells Urine Bacteria Urine Mucus Urine Opiates Screen Urine Methadone Screen Ur Barbiturates Screen Ur Phencyclidine Scrn Ur Amphetamines Screen MDMA (Ecstasy) Screen U Benzodiazepines Scrn Urine Cocaine Screen U Cannabinoids Screen Ur Drug Screen Comment Ethyl Alcohol 479.0 H* 02/23/23 02/23/23 00:05 00:05 WBC RBC Hgb Hct MCV MCH MCHC RDW Std Deviation RDW Coeff of Raz Plt Count MPV Immature Gran % (Auto) Neut % (Auto) Lymph % (Auto) Ida % (Auto) Eos % (Auto) Baso % (Auto) Absolute Neuts (auto) Absolute Lymphs (auto) Nucleated RBC % Differential Comment Diff Path Review Platelet Estimate PT INR APTT Sodium Potassium Chloride Carbon Dioxide Anion Gap BUN Creatinine Estim Creat Clear Calc Est GFR (MDRD) Af Amer Est GFR (MDRD) Non-Af BUN/Creatinine Ratio Glucose Calcium Total Bilirubin Direct Bilirubin AST ALT Alkaline Phosphatase Total Protein Albumin Globulin Vitamin B12 Folate Urine Color Yellow Urine Clarity Clear Urine pH 6.0 Ur Specific [place] 1.015 Urine Protein 30 H Urine Glucose (UA) Normal Urine Ketones 15 H Urine Occult Blood 10 H Urine Nitrite Negative Urine Bilirubin Negative Urine Urobilinogen 4 H Ur Leukocyte Esterase Negative Urine RBC 0 SEEN Urine WBC 0 SEEN Ur Squamous Epith Cells 0 SEEN Urine Bacteria 0 SEEN Urine Mucus 1+ Urine Opiates Screen NEGATIVE Urine Methadone Screen NEGATIVE Ur Barbiturates Screen NEGATIVE Ur Phencyclidine Scrn NEGATIVE Ur Amphetamines Screen NEGATIVE MDMA (Ecstasy) Screen NEGATIVE U Benzodiazepines Scrn NEGATIVE Urine Cocaine Screen NEGATIVE U Cannabinoids Screen POSITIVE H Ur Drug Screen Comment Ethyl Alcohol Discharge Plan Dx/Rx/DC Orders Clinical Impression: Alcohol dependence, Thrombocytopenia, Neutropenia, Paresthesias Disposition Disposition: Acute Care Hospital [facility]
[2023-02-22 23:59] LABS: Absolute Lymphocyte Count 0.99 X10^3/uL (0.83-4.51); Absolute Neutrophil Count 0.9 X10^3/uL (2.0-7.7); Basophil# 0.02 X10^3/uL; Basophil% 0.9 % (0-1); Eosinophil# 0.01 X10^3/uL; Eosinophils% 0.4 % (0-5); Hemoglobin 14.3 g/dL (13.0-16.5); Lymphocyte # 0.99 X10^3/ul (0.83-4.51); Lymphocyte % 43.6 % (19-41); Mean Corp Hgb Conc 34.9 g/dL (32-36); Mean Corpuscular Volume 91.7 fL (80-94); Mean Platelet Vol. 11.1 fl (6.2-12.0); Monocyte# 0.37 X10^3/uL; Monocyte% 16.3 % (0-10); NRBC Flagged by Analyzer 0 % (0-5); Neutrophil # 0.87 X10^3/uL (2.7-7.7); Neutrophil % 38.4 % (47-70); POSITIVE COUNT YES; POSITIVE DIFFERENTIAL YES; Platelet Count 44 K/mm3 (150-450); RBC Distribution Width CV 14.5 % (11.6-14.6); RBC Distribution Width SD 49.1 fl (35.1-43.9); Red Blood Count 4.47 M/mm3 (4.6-6.2); White Blood Count 2.3 K/mm3 (4.4-11.0)
[2023-02-23] VITALS (7 sets, daily range): BP systolic 114–131; BP diastolic 76–100; PULSE 56–101; RESP 16–18; TEMP 36.1–37.6; O2SAT 97–100; BMI 27.4
[2023-02-23 00:01] LABS: Differential Indicated SCAN CRITERIA MET
[2023-02-23 00:24] LABS: Prothrombin Time (Protime)PT. 12.9 SECONDS (11.7-14.9)
[2023-02-23 00:25] LABS: Bacteria 0 SEEN /hpf (None Seen); Red Blood Cells-Urine 0 SEEN /hpf (0-5); Squamous Epithelial Cells - UA 0 SEEN /hpf (0-5); White Blood Cells 0 SEEN /hpf (0-5)
[2023-02-23 00:25] LABS: Partial Thromboplast Time 26.4 Seconds (24.1-36.2)
[2023-02-23 00:26] LABS: Color, Urine Yellow (Yellow); Glucose, Dipstick Normal (Normal); Ketone-Dipstick 15 mg/dl (Negative); Leukocyte Esterase-Dipstick Negative /ul (Negative); Nitrite-Dipstick Negative (Negative); Occult Blood-Urine 10 /ul (Negative); Protein-Dipstick 30 mg/dl (Negative); Specific Gravity, Urine 1.015 (1.002-1.030); Urine Bilirubin Dipstick Negative (Negative); Urine Clarity Clear (Clear); Urine Urobilinogen 4 mg/dl (Normal)
[2023-02-23 00:28] LABS: Vitamin B12 549 pg/mL (211-911)
[2023-02-23 00:32] LABS: Anion Gap 13 (5-15); BUN 9 mg/dL (7-18); BUN/Creat Ratio 11.2 RATIO (10-20); Calcium,Total 8.8 mg/dL (8.5-10.1); Chloride 106 mmol/L (98-107); EST Glomerular Filtration Rate 110 mL/min (>60); Est Glom Filt Rate - Afr Amer 133 mL/min (>60); Estimated Creatinine Clearance 119.13 ml/min; Glucose 88 mg/dL (74-106); Potassium 3.5 mmol/L (3.5-5.1); Sodium Level 143 mmol/L (136-145)
[2023-02-23 00:35] LABS: Differential Comment SCANNED; Platelet Estimate MKD DEC (ADEQ)
[2023-02-23 00:38] LABS: Mucous, Urine 1+ /hpf (<or=2+)
[2023-02-23 00:39] LABS: Amphetamine Urine VISTA NEGATIVE (<1000 ng/mL); Barbiturate Urine VISTA NEGATIVE (< 200 ng/mL); Benzodiazepine Urine VISTA NEGATIVE (< 200 ng/mL); Cocaine Urine VISTA NEGATIVE (< 300 ng/mL); Ecstacy Urine VISTA NEGATIVE (< 500 ng/mL); Methadone Urine VISTA NEGATIVE (< 300 ng/mL); PCP Urine VISTA NEGATIVE (< 25 ng/mL); THC Urine VISTA POSITIVE (< 50 ng/mL); Vista UDS pH Range 6
[2023-02-23 00:57] LABS: AST(SGOT) 316 U/L (15-37); Alanine Aminotransfer ALT/SGPT 205 U/L (16-61); Albumin, Serum 4.3 g/dL (3.2-5.0); Alkaline Phosphatase 62 U/L (45-117); Bilirubin, Direct 0.33 mg/dL (0.00-0.30); Globulin 3.4 g/dL (2.2-4.2); Protein, Total 7.7 g/dL (6.4-8.2)
--- NOTE | 2023-02-23 04:19 | HP.PCM.HOS_ITS ---
HPI - General General Date of Admission: 02/23/23 Date of Service: 02/23/23 Chief Complaint: Desire for detoxification HPI Narrative ASCENCION PITTMAN, is a 47 M with a significant history of tobacco abuse; and alcoholism who presents to the emergency department for help with alcohol detoxification. Patient drinks more than a fifth of 80% alcohol proof vodka. Last time he drank was about 3 hours before presentation. He has been drinking on and off for about 15 years. He reports that early mornings he has tremors and has to drink to ivana these tremors. FORMERLY [facility], [facility] Medical History (Updated 02/23/23 @ 05:[address] Amarjit Leyva MD) Alcohol abuse Asthma Hypertension Kidney stones Seizures Sleep apnea Smoker Substance abuse TIA (transient ischemic attack) Home Medications aspirin 81 mg capsule 81 mg PO DAILY 02/22/23 [History Last Taken Unknown] Allergy/AdvReac Type Severity Reaction Status Date / Time No Known Allergies Allergy Verified 02/22/23 22:23 Family History (Updated 02/23/23 @ 05:[address] Amarjit Leyva MD) Other Alcoholism Heart disease Suicide Surgical History no surgical history no surgical history Social History Smoking Status: Current every day smoker tobacco type: cigarettes ROS ROS Narrative Pertinent positives and pertinent negatives as noted in HPI. All other systems were reviewed and are negative Vital Signs Vital Signs Vital Signs: 02/22/23 22:23 02/23/23 02:05 02/23/23 02:05 Temperature 97.4 F L 97 F L Temperature Source Temporal Temporal Pulse Rate 104 H 101 H Respiratory Rate 18 16 16 Blood Pressure 119/93 H 119/93 H Blood Pressure Mean 101 101 Blood Pressure Source Blood Pressure Position Blood Pressure Location Pulse Ox 98 99 Oxygen Delivery Method 02/23/23 02:33 Temperature 98.1 F Temperature Source Oral Pulse Rate 73 Respiratory Rate 18 Blood Pressure 131/91 H Blood Pressure Mean 104 Blood Pressure Source Monitor Blood Pressure Position Semi-Fowlers Blood Pressure Location Left Arm Pulse Ox 99 Oxygen Delivery Method Room Air Weight Weight: 84.277 kg Body Mass Index (BMI) 27.4 Physical Exam Narrative Physical exam: General: Well-nourished, well-developed. Head: Normocephalic, atraumatic, no tenderness Eyes: Injection of conjunctiva; vision is grossly intact. EOMI ENT, no trauma, moist mucous membranes, no rhinorrhea Neck: Nontender, No thyromegaly. CVS: Regular rate and rhythm. S1-S2 present. No murmur, gallop or rub. Respiratory : clear to auscultation bilaterally, chest wall nontender Abdomen: Soft, nontender, nondistended, normal bowel sounds, no masses : Deferred Back: Nontender, no CVA tenderness, no midline spinal tenderness, deformities, step-offs Extremities: Nontender full range of motion, no trauma Skin: Normal color, no trauma, abrasions Neuro: Alert, oriented, cranial nerves II through XII grossly intact. Psychiatry: Normal mood. Normal affect. Not depressed. Not anxious. Results Lab / Micro Data Result Diagrams: 02/22/23 23:50 02/22/23 23:50 Labs: Laboratory Results - last 24 hr 02/22/23 23:50: Vitamin B12 549 02/22/23 23:50: WBC 2.3 L, RBC 4.47 L, Hgb 14.3, Hct 41.0, MCV 91.7, MCH 32.0, MCHC 34.9, RDW Std Deviation 49.1 H, RDW Coeff of Raz 14.5, Plt Count 44 L*, MPV 11.1, Immature Gran % (Auto) 0.400, Neut % (Auto) 38.4 L, Lymph % (Auto) 43.6 H, [place] % (Auto) 16.3 H, Eos % (Auto) 0.4, Baso % (Auto) 0.9, Absolute Neuts (auto) 0.9 L, Absolute Lymphs (auto) 0.99, Nucleated RBC % 0, Differential Comment SCANNED, Diff Path Review January foll, Platelet Estimate MKD 02/22/23 23:50: PT 12.9, INR 1.0, APTT 26.4 02/22/23 23:50: Sodium 143, Potassium 3.5, Chloride 106, Carbon Dioxide 24.0, Anion Gap 13, BUN 9, Creatinine 0.80, Estim Creat Clear Calc 119.13, Est GFR (MDRD) Af Amer 133, Est GFR (MDRD) Non-Af 110, BUN/Creatinine Ratio 11.2, Glucose 88, Calcium 8.8, Folate 6.70 02/22/23 23:50: Ethyl Alcohol 479.0 H* 02/22/23 23:50: Total Bilirubin 0.60, Direct Bilirubin 0.33 H, AST 316 H, ALT 205 H, Alkaline Phosphatase 62, Total Protein 7.7, Albumin 4.3, Globulin 3.4 02/23/23 00:05: Urine Color Yellow, Urine Clarity Clear, Urine pH 6.0, Ur Specific [place] 1.015, Urine Protein 30 H, Urine Glucose (UA) Normal, Urine Ketones 15 H, Urine Occult Blood 10 H, Urine Nitrite Negative, Urine Bilirubin Negative, Urine Urobilinogen 4 H, Ur Leukocyte Esterase Negative, Urine RBC 0 SEEN, Urine WBC 0 SEEN, Ur Squamous Epith Cells 0 SEEN, Urine Bacteria 0 SEEN, Urine Mucus 1+ 02/23/23 00:05: Urine Opiates Screen NEGATIVE, Urine Methadone Screen NEGATIVE, Ur Barbiturates Screen NEGATIVE, Ur Phencyclidine Scrn NEGATIVE, Ur Amphetamines Screen NEGATIVE, MDMA (Ecstasy) Screen NEGATIVE, U Benzodiazepines Scrn NEGATIVE, Urine Cocaine Screen NEGATIVE, U Cannabinoids Screen POSITIVE H, Ur Drug Screen Comment Micro: Microbiology 02/23/23 00:15 Stool Stool Occult Blood (SHANNAN) - Final Assessment & Plan Assessment/Plan (1) Thrombocytopenia: (2) Alcoholism: (3) HTN (hypertension): PLAN: Plan Alcohol dependence and desire for detoxification Patient be started on phenobarbital and other adjunctive medications: Gabapentin as needed; dicyclomine as needed; Vistaril as needed; Imodium as needed; trazodone as needed; Zofran as needed; scheduled thiamine; and schedule folic acid. Monitor CIWA score Tobacco abuse Counseled Smoke about 4 sticks a day. Declined any nicotine replacement therapy. Elevated liver enzymes Likely secondary to alcoholism. We will get ultrasound screen. Acute hepatitis panel. Will trend CMP. Pancytopenia Noted to be leukopenic and has thrombocytopenia. Clinical monitoring. Trend. DVT prophylaxis Low risk Encourage to ambulate Charges/Coding Visit Charges Inpatient E&M: 92810 Init Hosp L3
[2023-02-23] MEDS: Phenobarbital 32.4 MG Tablet PO ×5 (05:20→20:12)
--- NOTE | 2023-02-23 05:21 | US_ITS ---
Ultrasound liver TECHNIQUE: Multiple ultrasound images were obtained of the right upper quadrant. FINDINGS: Liver measures 13.8 cm in greatest longitudinal dimension. There is no evidence for biliary ductal dilatation. There is increased echogenicity of the liver suggestive of fatty infiltration. Gallbladder is unremarkable with a negative Laboy''s sign. No gallstones are noted. Pancreas is not well visualized although the pancreatic head appears grossly within normal limits. Right kidney appears unremarkable measuring of 11.4 x 5.9 x 5.8 cm. US/Liver IMPRESSION: Limited study. Fatty infiltration of the liver. Electronically Signed: Germain Blum, at 18:17 EDT ,
[2023-02-23] MEDS: 0.9% Saline Lock 10 ML Syringe IV (05:22)
[2023-02-23 07:18] LABS: ALB/GLOB Ratio 1.4 RATIO (0.9-2.4); AST(SGOT) 298 U/L (15-37); Alanine Aminotransfer ALT/SGPT 198 U/L (16-61); Albumin, Serum 4.1 g/dL (3.2-5.0); Alkaline Phosphatase 57 U/L (45-117); Anion Gap 11 (5-15); BUN 9 mg/dL (7-18); BUN/Creat Ratio 13.5 RATIO (10-20); Calcium,Total 8.2 mg/dL (8.5-10.1); Chloride 105 mmol/L (98-107); Creatinine, Serum 0.67 mg/dL (0.70-1.30); EST Glomerular Filtration Rate 136 mL/min (>60); Est Glom Filt Rate - Afr Amer 165 mL/min (>60); Estimated Creatinine Clearance 137.77 ml/min; Glucose 71 mg/dL (74-106); Potassium 3.5 mmol/L (3.5-5.1); Protein, Total 7.1 g/dL (6.4-8.2); Sodium Level 142 mmol/L (136-145)
[2023-02-23] MEDS: Folic Acid 1 MG Tablet PO (08:23)
[2023-02-23] MEDS: Thiamine Hydrochloride 100 MG Tablet PO (08:23)
--- NOTE | 2023-02-23 12:04 | ADDICTION ---
This sports writer met with PT to conduct ASAM, MSE, AUDIT, DUDIT assessments and to plan for d/c. PT A+Ox4 and participated actively. All assessments completed and placed in PT's chart. PT plans to f/u with follow-up treatment services, however he wants a day to think about it. This worker offered resources. PT did not indicate a need for transportation post d/c from [facility].
[2023-02-23] MEDS: Glycerin/Hypromellose/PEG400 15 ml Bottle 1 DRP EACH EYE (12:20)
[2023-02-23 12:21] LABS: Pathologist Review Reviewed
--- NOTE | 2023-02-23 14:06 | CASEMGMT ---
Social Work SW noted pt admitted and has no health insurance. SW met with pt and introduced self and role of SW. 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 Pt feels wages and savings are adequate and pt has no financial concerns at this time. Pt discussed housing, food insecurity and transportation concerns and pt denies any concerns. SW provided pt with [employer] card. No other SW needs at this time. SAY Poole
--- NOTE | 2023-02-23 15:53 | CHAPLAIN ---
Type of Pastoral Visit _x__ Initial Visit ___ Follow-up Visit ___ On-call Visit ___ General Patient Visit ___ Spiritual Assessment ___ Family Conference ___ Bereavement ___ Rapid Response ___ Code Blue ___ Other (describe below) Pastoral Care Referral From _x__ Patient ___ Family ___ Nurse ___ Physician ___ Desktop Support Engineer ___ Payable Representative ___ Other (describe below) Sacrament/Intervention _x__ Active listening ___ Anointing ___ Worship ___ Bereavement ___ Communion ___ Celeste exploration ___ _x__ Life review _x__ Prayer ___ Reconciliation ___ Sacrament of Sick _x__ Supportive presence ___ Wedding ___ Other (describe below) Pastoral Comments patient describes his decision and that to bring along a relative for detox; pt admits to being 'shaken' when told he could have with high alcohol levels; pt is open to prayer, presence, support for recovery; pt has been sober before and believes he can achieve that again
[2023-02-23] MEDS: Ondansetron 8 MG Tablet PO (17:02)
[2023-02-23] MEDS: Gabapentin 300 MG Capsule PO (17:02)
[2023-02-23] MEDS: Dicyclomine 10 MG Capsule 20 MG PO (17:02)
[2023-02-23] MEDS: hydrOXYzine PAM 25 MG Capsule 50 MG PO (20:12)
[2023-02-23] MEDS: traZODone 100 MG Tablet PO (20:13)
[2023-02-24] MEDS: Phenobarbital 32.4 MG Tablet PO ×6 (01:19→20:57)
[2023-02-24] MEDS: Dicyclomine 10 MG Capsule 20 MG PO ×2 (01:22→13:54)
[2023-02-24 01:25] VITALS: BP 121/79; PULSE 52; RESP 17; TEMP 36.8; O2SAT 99
[2023-02-24 05:02] VITALS: BP 120/68; PULSE 56; RESP 18; TEMP 36.6; O2SAT 98
[2023-02-24 09:02] VITALS: BP 121/83; PULSE 67; RESP 18; TEMP 36.7; O2SAT 98
[2023-02-24] MEDS: Thiamine Hydrochloride 100 MG Tablet PO (09:07)
[2023-02-24] MEDS: Folic Acid 1 MG Tablet PO (09:07)
[2023-02-24] MEDS: Glycerin/Hypromellose/PEG400 15 ml Bottle 1 DRP EACH EYE (09:07)
[2023-02-24] MEDS: hydrOXYzine PAM 25 MG Capsule 50 MG PO ×3 (09:07→21:56)
--- NOTE | 2023-02-24 10:02 | PCM.PN.HOSP ---
Subjective Subjective Doing well, no issues overnight. CIWA score of 3 this morning Objective Data Objective Data Vital Signs: Vital Signs Temp Pulse Resp BP Pulse Ox O2 Del Method 98.0 F 67 18 121/83 H 98 Room Air 02/24/23 09:02 02/24/23 09:02 02/24/23 09:02 02/24/23 09:02 02/24/23 09:02 02/24/23 09:02 Oxygen Delivery Method Room Air Weight: 185 lb 12.8 oz Body Mass Index (BMI) 27.4 Intake & Output: Intake and Output for Last 24 Hours 02/23/23 02/24/23 02/25/23 03:59 03:59 03:59 Intake Total 2400 / 2400 400 / 400 Output Total 0 / 0 Balance 2400 / 2400 400 / 400 Lab / Micro Data Result Diagrams: 02/22/23 23:50 02/23/23 06:49 Labs: Laboratory Results - last 24 hr 02/22/23 23:50: Diff Path Review Reviewed Micro: Microbiology 02/23/23 00:15 Stool Stool Occult Blood (SHANNAN) - Final Radiography Diagnostic Testing: Radiology Impression Liver Ultrasound 02/23/23 05:21 IMPRESSION: Limited study. Fatty infiltration of the liver. Electronically Signed: Germain Blum, at 18:17 EDT , Physical Exam Narrative And general: Alert, Oriented x3, Cooperative, No apparent distress HEENT: Atraumatic, PERRLA, EOMI, Normocephalic Oral: Moist Mucosa Neck: Supple, No JVD Lungs: Clear to auscultation, Normal air movement, No rhonchi, No wheeze, No rales Cardiovascular: Regular rate, Regular Rhythm, Normal S1, Normal S2, No murmurs Abdomen: Soft, Non Tender, Non-Distended, No Hepato-splenomegaly Extremities: No edema, Capillary Refill Less than 3 Seconds Skin: No rashes, No breakdown Musculoskeletal: No Tenderness to Palpation of Joints or Extremities Neurological: Cranial nerves II-XII grossly intact, Motor Exam 5/5 strength throughout, Sensory exam intact to light touch and pain Psych/Mental Status: Normal Affect, Appropriate Assessment & Plan Assessment/Plan (1) Thrombocytopenia: (2) Alcoholism: (3) HTN (hypertension): PLAN: Plan 1. Acute alcohol withdrawal/leukopenia and thrombocytopenia/elevated LFTs ? Continue with the alcohol withdrawal protocol ? Discussed tobacco cessation declined nicotine ? Decrease in white blood cell count and platelet count is related to likely marrow suppression from his alcohol ? Elevated LFTs are due to alcohol and appear to be improving ? Need to follow-up with 180 DVT: Ambulation Charges/Coding Visit Charges Inpatient E&M: 38807 Subs Hosp L2
--- NOTE | 2023-02-24 12:13 | ADDICTION ---
Pt has decided to follow up with [facility] for outpatient treatment post d/c.
[2023-02-24 13:44] VITALS: BP 132/91; PULSE 67; RESP 18; TEMP 36.8; O2SAT 98
[2023-02-24] MEDS: Loperamide 2 MG Capsule PO ×2 (13:54→21:56)
[2023-02-24] MEDS: Gabapentin 300 MG Capsule PO (20:57)
[2023-02-24 21:53] VITALS: BP 155/80; PULSE 78; RESP 17; TEMP 37.2; O2SAT 99
[2023-02-24] MEDS: traZODone 100 MG Tablet PO (21:56)
[2023-02-25] VITALS (8 sets, daily range): BP systolic 109–149; BP diastolic 67–108; PULSE 63–80; RESP 12–18; TEMP 36.6–37.1; O2SAT 95–100
[2023-02-25] MEDS: Phenobarbital 32.4 MG Tablet PO ×5 (01:20→18:34)
--- NOTE | 2023-02-25 08:48 | PN.HOSP_ITS ---
Subjective Subjective Doing well, no issues overnight. Plan for outpatient rehab. CIWA score of 0 Objective Data Objective Data Vital Signs: Vital Signs Temp Pulse Resp BP Pulse Ox O2 Del Method 97.8 F 66 16 112/76 99 Room Air 02/25/23 01:14 02/25/23 01:14 02/25/23 01:14 02/25/23 01:14 02/25/23 01:14 02/25/23 01:14 Oxygen Delivery Method Room Air Weight: 185 lb 12.8 oz Body Mass Index (BMI) 27.4 Intake & Output: Intake and Output for Last 24 Hours 02/24/23 02/25/23 02/26/23 03:59 03:59 03:59 Intake Total 2400 / 2400 400 / 400 Output Total 0 / 0 Balance 2400 / 2400 400 / 400 Lab / Micro Data Result Diagrams: 02/22/23 23:50 02/23/23 06:49 Micro: Microbiology 02/23/23 00:15 Stool Stool Occult Blood (SHANNAN) - Final Physical Exam Narrative And general: Alert, Oriented x3, Cooperative, No apparent distress HEENT: Atraumatic, PERRLA, EOMI, Normocephalic Oral: Moist Mucosa Neck: Supple, No JVD Lungs: Clear to auscultation, Normal air movement, No rhonchi, No wheeze, No rales Cardiovascular: Regular rate, Regular Rhythm, Normal S1, Normal S2, No murmurs Abdomen: Soft, Non Tender, Non-Distended, No Hepato-splenomegaly Extremities: No edema, Capillary Refill Less than 3 Seconds Skin: No rashes, No breakdown Musculoskeletal: No Tenderness to Palpation of Joints or Extremities Neurological: Cranial nerves II-XII grossly intact, Motor Exam 5/5 strength thro ughout, Sensory exam intact to light touch and pain Psych/Mental Status: Normal Affect, Appropriate Assessment & Plan Assessment/Plan (1) Thrombocytopenia: (2) Alcoholism: (3) HTN (hypertension): PLAN: Plan 1. Acute alcohol withdrawal/leukopenia and thrombocytopenia/elevated LFTs ? Continue with the alcohol withdrawal protocol ? Discussed tobacco cessation, will provide a nicotine patch today ? Decrease in white blood cell count and platelet count is related to likely marrow suppression from his alcohol ? Elevated LFTs are due to alcohol and appear to be improving ? Need to follow-up with 180 DVT: Ambulation Charges/Coding Visit Charges Inpatient E&M: 53804 Subs Hosp L2
[2023-02-25] MEDS: Gabapentin 300 MG Capsule PO (09:09)
[2023-02-25] MEDS: Folic Acid 1 MG Tablet PO (09:09)
[2023-02-25] MEDS: Thiamine Hydrochloride 100 MG Tablet PO (09:09)
[2023-02-25] MEDS: Dicyclomine 10 MG Capsule 20 MG PO (09:09)
--- NOTE | 2023-02-25 12:11 | NURSING ---
pt restless, ambulating in hallway. after conversation, staets he is in hospital. pt agrees to go back to his patient room, pt closes. door.
[2023-02-25] MEDS: hydrOXYzine PAM 25 MG Capsule 50 MG PO (12:50)
[2023-02-25] MEDS: chlordiazePOXIDE 25 MG Capsule 50 MG PO (12:51)
--- NOTE | 2023-02-25 14:21 | NURSING ---
pt states he is seeing his son and a coworker in his room, he talks to them at times and sometimes they speak back to him. i know they aren't really real and that is freaking me out too. i think they are a occurring a little bit less, i feel a little bit less anxious than i did earlier. support/reinforcement of POC
--- NOTE | 2023-02-25 14:50 | NURSING ---
pt noted to bed wondering hallway. Primary RN updated as aware she asked patient to stay in his room to assist with decreased stimulation as having active hallucinations and confusion. Pt stopped at nurses' station. pt confused. pt stating he is changing rooms pt stating he had been told he's changing room and he has belongings somewhere else. Attempted to reorient patient and reassuring him that 308 is his room number at this time and will remain so at this time. pt seems aggitated and requesting this nurse go into the room and get his eye drops first but refuses to go back into 308 and walks down hallway in opposite direction. Security called requested HRO make round on the unit. Primary RN arrived as patient did go back into 308. Primary RN updated and to update HRO upon arrival.
--- NOTE | 2023-02-25 15:12 | NURSING ---
HRO Miko in room speaking with pt to assist with de-escalation.
[2023-02-25] MEDS: 0.9% Saline Lock 10 ML Syringe IV (15:37)
[2023-02-25] MEDS: LORazepam 2 MG/ML Syringe 1 MG IV (15:37)
--- NOTE | 2023-02-25 16:38 | NURSING ---
pt out in hallway, wandering and entering other pt room (down in 319). pt cooperative to be assisted back to his room however pt is agitated, states he needs to leave and get his car so he has it to get home tomorrow and then he will be right back, he will have his son bring him back. informed pt that is not allowed. de-escalation. debt management counselor notifed md notified.
--- NOTE | 2023-02-25 16:49 | NURSING ---
bed disconnect ringing- 3 staff to room. pt standing at double closet doors, with call light/tubing in hand. states i'm trying to cut this apart pt actively trying to rip wiring out of call light. pt guarded with behavior when speaking with staff even though is cooperative. notified.
--- NOTE | 2023-02-25 17:07 | NURSING ---
pt in hallway, argumentative/ raising voice with staff. HRO phoned and will be up. ICU will call back for nurse to nurse
--- NOTE | 2023-02-25 17:14 | NURSING ---
fredy to desk requesting code violent called. pt in room breaking into belongings and unable to deesculate. [address] and dr. ji sent text.
--- NOTE | 2023-02-25 17:14 | NURSING ---
1710 dr ji updated. aware he has updated icu and patient to be sent to icu. fredy called icu with update. HRO responded. Neurology Hospitalist Olivia on unit.
--- NOTE | 2023-02-25 17:20 | NURSING ---
nurse to nurse report given to ICU. TAN Crouch, nursing filling and packing supervisor Dr. Baljeet Koenig with pt. pt agrees to ambulate vs ride in bed to ICU with said staff.
--- NOTE | 2023-02-25 17:22 | NURSING ---
pt left unit for icu escorted by Dr. Delong. TAN gilman, housecleaner bon.
--- NOTE | 2023-02-25 23:22 | NURSING ---
2300 Precedex continues to run at 1.5mcg/kg/hr, current bag that is running is discontinued on NOV and will not allow this RN to document hourly titration.
[2023-02-25] MEDS: Dexmedetomidine 1,000 mcg in 0.9% NS 240 mL 31.6 MCG CONT INF (23:42)
[2023-02-26] VITALS (25 sets, daily range): BP systolic 101–156; BP diastolic 79–113; PULSE 48–63; RESP 10–18; TEMP 36.6–37.3; O2SAT 98–100; BMI 28.5
[2023-02-26] MEDS: Phenobarbital 32.4 MG Tablet PO ×4 (02:07→18:01)
[2023-02-26] MEDS: Dexmedetomidine 1,000 mcg in 0.9% NS 240 mL 31.6 MCG CONT INF ×3 (07:22→22:44)
[2023-02-26] MEDS: Gabapentin 300 MG Capsule PO (08:01)
[2023-02-26] MEDS: Folic Acid 1 MG Tablet PO (08:01)
[2023-02-26] MEDS: Thiamine Hydrochloride 100 MG Tablet PO (08:02)
--- NOTE | 2023-02-26 08:51 | PCM.PN.HOSP ---
Reason for Visit Reason for Visit: Throughout the course of the day yesterday he developed hallucinations and became more agitated, delay in presentation is likely secondary to how elevated his blood alcohol level was on admission Objective Data Objective Data Vital Signs: Vital Signs Temp Pulse Resp BP Pulse Ox O2 Del Method 98 F 62 16 101/79 98 Room Air 02/26/23 06:00 02/26/23 08:00 02/26/23 08:00 02/26/23 08:00 02/26/23 08:00 02/26/23 08:00 Oxygen Delivery Method Room Air Weight: 192 lb 7.417 oz Body Mass Index (BMI) 28.5 Intake & Output: Intake and Output for Last 24 Hours 02/25/23 02/26/23 02/27/23 03:59 03:59 03:59 Intake Total 400 / 400 283.51 / 315.11 172.76 / 172.76 Output Total 500 / 500 Balance 400 / 400 -216.49 / -184.89 172.76 / 172.76 Lab / Micro Data Result Diagrams: 02/22/23 23:50 02/23/23 06:49 Micro: Microbiology 02/23/23 00:15 Stool Stool Occult Blood (SHANNAN) - Final Physical Exam Narrative General: Sedated but arousable, Cooperative HEENT: Atraumatic, PERRLA, EOMI, Normocephalic Oral: Moist Mucosa Neck: Supple, No JVD Lungs: Clear to auscultation, Normal air movement, No rhonchi, No wheeze, No rales Cardiovascular: Regular rate, Regular Rhythm, Normal S1, Normal S2, No murmurs Abdomen: Soft, Non Tender, Non-Distended, No Hepato-splenomegaly Extremities: No edema, Capillary Refill Less than 3 Seconds Skin: No rashes, No breakdown Musculoskeletal: No Tenderness to Palpation of Joints or Extremities Neurological: Cranial nerves II-XII grossly intact, Motor Exam 5/5 strength throughout, Sensory exam intact to light touch and pain Psych/Mental Status: Hallucinations, agitated, restless Assessment & Plan Assessment/Plan (1) Thrombocytopenia: (2) Alcoholism: (3) HTN (hypertension): PLAN: Plan 1. Acute alcohol withdrawal/leukopenia and thrombocytopenia/elevated LFTs ?Continue with the phenobarbital taper, added Librium yesterday ? Wean Precedex drip as able ? Discussed tobacco cessation, will provide a nicotine patch today ? Decrease in white blood cell count and platelet count is related to likely marrow suppression from his alcohol ? Elevated LFTs are due to alcohol and appear to be improving ? Need to follow-up with 180 DVT: Tonya Charges/Coding Visit Charges Inpatient E&M: 78114 Subs Hosp L2
[2023-02-26] MEDS: Enoxaparin 40 MG/0.4 ML Syringe SC (09:28)
[2023-02-26] MEDS: hydrOXYzine PAM 25 MG Capsule 50 MG PO (12:06)
[2023-02-27] VITALS (25 sets, daily range): BP systolic 83–152; BP diastolic 68–109; PULSE 46–94; RESP 10–21; TEMP 36.4–36.9; O2SAT 94–100; BMI 28.5
[2023-02-27] MEDS: Phenobarbital 32.4 MG Tablet PO ×2 (01:12→06:46)
[2023-02-27 05:05] LABS: Absolute Neutrophil Count 1.5 X10^3/uL (2.0-7.7); Basophil# 0.03 X10^3/uL; Eosinophils% 6.5 % (0-5); Hematocrit 41.5 % (40-54); Hemoglobin 14.5 g/dL (13.0-16.5); Lymphocyte % 29.1 % (19-41); Mean Corp Hgb Conc 34.9 g/dL (32-36); Mean Corpuscular Hgb 32.2 pg (27.0-32.0); Mean Corpuscular Volume 92.2 fL (80-94); Mean Platelet Vol. 12.2 fl (6.2-12.0); Monocyte# 0.43 X10^3/uL; Monocyte% 13.9 % (0-10); NRBC Flagged by Analyzer 0 % (0-5); Neutrophil # 1.51 X10^3/uL (2.7-7.7); Neutrophil % 48.9 % (47-70); POSITIVE COUNT YES; RBC Distribution Width CV 12.8 % (11.6-14.6); White Blood Count 3.1 K/mm3 (4.4-11.0)
[2023-02-27 05:10] LABS: Differential Indicated SCAN CRITERIA MET; Platelet Count 45 K/mm3 (150-450)
[2023-02-27 05:23] LABS: Anion Gap 7 (5-15); BUN 9 mg/dL (7-18); BUN/Creat Ratio 14.4 RATIO (10-20); Calcium,Total 9.7 mg/dL (8.5-10.1); Chloride 105 mmol/L (98-107); Creatinine, Serum 0.63 mg/dL (0.70-1.30); EST Glomerular Filtration Rate 146 mL/min (>60); Est Glom Filt Rate - Afr Amer 177 mL/min (>60); Estimated Creatinine Clearance 146.51 ml/min; Glucose 104 mg/dL (74-106); Potassium 3.8 mmol/L (3.5-5.1); Sodium Level 137 mmol/L (136-145)
[2023-02-27 05:45] LABS: Differential Comment SCANNED; Platelet Estimate MKD DEC (ADEQ)
[2023-02-27] MEDS: Dexmedetomidine 1,000 mcg in 0.9% NS 240 mL 31.6 MCG CONT INF (06:40)
--- NOTE | 2023-02-27 08:46 | PCM.PN.HOSP ---
Subjective Subjective No new issues overnight, maintaining on the Precedex drip Objective Data Objective Data Vital Signs: Vital Signs Temp Pulse Resp BP Pulse Ox O2 Del Method 97.9 F 48 L 12 126/94 H 100 Room Air 02/27/23 07:00 02/27/23 08:00 02/27/23 08:00 02/27/23 08:00 02/27/23 08:00 02/27/23 08:00 Oxygen Delivery Method Room Air Weight: 192 lb 7.417 oz Body Mass Index (BMI) 28.5 Intake & Output: Intake and Output for Last 24 Hours 02/26/23 02/27/23 02/28/23 03:59 03:59 03:59 Intake Total 283.51 / 315.11 1657.36 / 1688.96 425.70 / 425.70 Output Total 500 / 500 1850 / 1850 800 / 800 Balance -216.49 / -184.89 -192.64 / -161.04 -374.30 / -374.30 Lab / Micro Data Result Diagrams: 02/27/23 04:50 02/27/23 04:50 Labs: Laboratory Results - last 24 hr 02/27/23 04:50: WBC 3.1 L, RBC 4.50 L, Hgb 14.5, Hct 41.5, MCV 92.2, MCH 32.2 H, MCHC 34.9, RDW Std Deviation 43.0, RDW Coeff of Raz 12.8, Plt Count 45 L*, MPV 12.2 H, Immature Gran % (Auto) 0.600, Neut % (Auto) 48.9, Lymph % (Auto) 29.1, Evangeline % (Auto) 13.9 H, Eos % (Auto) 6.5 H, Baso % (Auto) 1.0, Absolute Neuts (auto) 1.5 L, Absolute Lymphs (auto) 0.90, Nucleated RBC % 0, Differential Comment SCANNED, Diff Path Review January danita, Platelet Estimate MKD 02/27/23 04:50: Sodium 137, Potassium 3.8, Chloride 105, Carbon Dioxide 25.0, Anion Gap 7, BUN 9, Creatinine 0.63 L, Estim Creat Clear Calc 146.51, Est GFR (MDRD) Af Amer 177, Est GFR (MDRD) Non-Af 146, BUN/Creatinine Ratio 14.4, Glucose 104, Calcium 9.7 Micro: Microbiology 02/23/23 00:15 Stool Stool Occult Blood (SHANNAN) - Final Physical Exam Narrative General: Sedated but arousable, Cooperative HEENT: Atraumatic, PERRLA, EOMI, Normocephalic Oral: Moist Mucosa Neck: Supple, No JVD Lungs: Clear to auscultation, Normal air movement, No rhonchi, No wheeze, No rales Cardiovascular: Regular rate, Regular Rhythm, Normal S1, Normal S2, No murmurs Abdomen: Soft, Non Tender, Non-Distended, No Hepato-splenomegaly Extremities: No edema, Capillary Refill Less than 3 Seconds Skin: No rashes, No breakdown Musculoskeletal: No Tenderness to Palpation of Joints or Extremities Neurological: Cranial nerves II-XII grossly intact, Motor Exam 5/5 strength throughout, Sensory exam intact to light touch and pain Psych/Mental Status: Flat Assessment & Plan Assessment/Plan (1) Thrombocytopenia: (2) Alcoholism: (3) HTN (hypertension): PLAN: Plan 1. Acute alcohol withdrawal/leukopenia and thrombocytopenia/elevated LFTs ?Continue with the phenobarbital taper ? Wean Precedex drip as able ? Discussed tobacco cessation, will provide a nicotine patch ? Decrease in white blood cell count and platelet count is related to likely marrow suppression from his alcohol ? Elevated LFTs are due to alcohol and appear to be improving ? Need to follow-up with 180 DVT: Lovenox Charges/Coding Visit Charges Inpatient E&M: 43989 Subs Hosp L2
[2023-02-27] MEDS: Folic Acid 1 MG Tablet PO (09:33)
[2023-02-27] MEDS: Thiamine Hydrochloride 100 MG Tablet PO (09:33)
[2023-02-27] MEDS: TITRATION PARAMETER CHANGE 1 EACH IV (09:34)
--- NOTE | 2023-02-27 10:03 | EKG12_ITS ---
Test Reason : BARRY Blood Pressure : / mmHG Vent. Rate : 042 BPM Atrial Rate : 042 BPM P-R Int : 184 ms QRS Dur : 108 ms QT Int : 528 ms P-R-T Axes : 038 006 007 degrees QTc Int : 440 ms Marked sinus bradycardia Abnormal ECG When compared with ECG of 19-DEC-2020 15:24, Vent. rate has decreased BY 34 BPM Confirmed by BRE BROWN MD ([id number]), editor sound SHERICE MCCORD ([id number]) on 03/01/2023 2:41:01 PM Referred By: CHRIS Confirmed By:BRE BROWN MD
--- NOTE | 2023-02-27 10:08 | NURSING ---
monitor shows heart rate bradycardic in the 40's, patient wanting to get to chair, assisted x2 to chair, dizzy, diaphoretic, remains hypotensive and bradycardic, patient stated you guys are fading and my hearing is going. precedex paused, got back to bed x2 assist SPT, placed in trendelenburg position in bed, cold washcloth, fan on patient, Dr. Wood made aware, 500cc bolus ordered and given, EKG obtained and sent to Dr. Wood. Patient resting in bed, remains pale, HR 40s, BP improving 120s systolic now.
--- NOTE | 2023-02-27 12:49 | CT_ITS ---
We are attempting to reach an attending provider to discuss findings. An addendum with communication details will be sent when the communication is complete. HISTORY: cva ro. TECHNIQUE: Multiple axial images were obtained of the head without intravenous contrast. A radiation dose optimization technique was used for this scan. 248 images. COMPARISON: 03/02/2021. FINDINGS: BRAIN PARENCHYMA: No significant attenuation abnormality. No acute intra-axial hemorrhage identified. CSF SPACES: Within normal limits for age. No midline shift or other significant mass effect. No acute extra-axial hemorrhage seen. OTHER: Intact calvarium. Mild right maxillary sinus mucosal thickening. Unremarkable orbits. ASPECTS Score for Acute Strokes: 10 CT/STROKE Brain/Head without Cont IMPRESSION: No acute intracranial process identified. Electronically Signed: Shawna Saleh MD at 13:08 EDT ,
--- NOTE | 2023-02-27 13:07 | CT_ITS ---
We are attempting to reach an attending provider to discuss findings. An addendum with communication details will be sent when the communication is complete. HISTORY: r/o stroke, recommended by neurologist. TECHNIQUE: [place]/head and carotid CT angiogram protocol was performed after the intravenous administration of 100 mL Isovue 370. NASCET criteria using the distal ICAs for comparison were used for evaluation of stenoses. 3D reconstructions were reviewed. A radiation dose optimization technique was used for this scan. 2149 images. COMPARISON: CT head same day. CT 07/22/2016. FINDINGS: AORTIC ARCH AND BRANCHES: Normal anatomy, patent. RIGHT CCA: No occlusion, significant stenosis or dissection. RIGHT ICA: No occlusion, significant stenosis or dissection. LEFT CCA: No occlusion, significant stenosis or dissection. LEFT ICA: No occlusion, significant stenosis or dissection. RIGHT VERTEBRAL ARTERY: Hypoplastic. No occlusion, significant stenosis or dissection. LEFT VERTEBRAL ARTERY: Dominant. No occlusion, significant stenosis or dissection. ICAs: No significant stenosis at the intracranial/visualized segments. ACAs: No significant stenosis at the visualized segments. MCAs: No significant stenosis at the visualized segments. 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 BASILAR ARTERY: No significant stenosis. VERTEBRAL ARTERIES: No significant stenosis at the intradural/visualized segments. No evidence of intracranial aneurysm or vascular malformation. CT/STROKE CTA Head AND Neck W/Con IMPRESSION: No evidence for significant stenosis or occlusion in the carotid or vertebral arteries of the neck. No evidence for large vessel occlusion or other focal vascular abnormality in the [place] region. Electronically Signed: Shawna Saleh MD at 13:42 EDT ,
[2023-02-27 13:29] LABS: Bedside Glucose 72 mg/dL (74-106)
[2023-02-27] MEDS: Loperamide 2 MG Capsule PO (18:29)
[2023-02-27] MEDS: Dicyclomine 10 MG Capsule 20 MG PO (18:29)
[2023-02-27] MEDS: traZODone 100 MG Tablet PO (21:07)
[2023-02-27] MEDS: Gabapentin 300 MG Capsule PO (21:07)
[2023-02-28] VITALS (24 sets, daily range): BP systolic 75–128; BP diastolic 59–103; PULSE 52–117; RESP 8–19; TEMP 36.2–36.9; O2SAT 97–100; BMI 28.5
[2023-02-28] MEDS: TITRATION PARAMETER CHANGE 1 EACH IV (07:19)
[2023-02-28] MEDS: Folic Acid 1 MG Tablet PO (09:27)
[2023-02-28] MEDS: Thiamine Hydrochloride 100 MG Tablet PO (09:27)
[2023-02-28] MEDS: Dexmedetomidine 1,000 mcg in 0.9% NS 240 mL 6.6 MCG CONT INF (09:28)
[2023-02-28] MEDS: hydrOXYzine PAM 25 MG Capsule 50 MG PO (09:34)
--- NOTE | 2023-02-28 09:34 | PCM.PN.HOSP ---
Subjective Subjective Doing well, no issues overnight able to wean Precedex a little bit. Yesterday he did have a stroke alert secondary to bilateral numbness and tingling in his fingers as well as vision changes and a numb tongue however on evaluation this was felt to be a stroke CT and CTA were negative. Objective Data Objective Data Vital Signs: Vital Signs Temp Pulse Resp BP Pulse Ox O2 Del Method 97.5 F L 91 15 113/76 100 Room Air 02/28/23 09:00 02/28/23 09:00 02/28/23 09:00 02/28/23 09:00 02/28/23 09:00 02/28/23 09:00 Oxygen Delivery Method Room Air Weight: 192 lb 10.944 oz Body Mass Index (BMI) 28.5 Intake & Output: Intake and Output for Last 24 Hours 02/27/23 02/28/23 03/01/23 03:59 03:59 03:59 Intake Total 1657.36 / 1688.96 1913.29 / 1916.54 31.88 / 31.88 Output Total 1850 / 1850 3300 / 3300 Balance -192.64 / -161.04 -1386.71 / -1383.46 31.88 / 31.88 Lab / Micro Data Result Diagrams: 02/27/23 04:50 02/27/23 04:50 Labs: Laboratory Results - last 24 hr 02/27/23 13:10: POC Glucose 72 L Micro: Microbiology 02/23/23 00:15 Stool Stool Occult Blood (SHANNAN) - Final Radiography Diagnostic Testing: Radiology Impression Brain CT 02/27/23 12:49 IMPRESSION: No acute intracranial process identified. Electronically Signed: Shawna Saleh MD at 13:08 EDT , ADDENDUM: 02/27/23 1315 IMPRESSION: No acute intracranial process identified. N.B. : The above Results were Read Back by Shawna Saleh MD to Lisa Mcmahon RN, and understanding confirmed on 02/27/2023 13:08:50 (ET). Electronically Signed: Shawna Saleh MD at 13:08 EDT Reading Location ID and State: [facility] / [place] Tel , Service support , Head/Neck CTA 02/27/23 13:07 IMPRESSION: No evidence for significant stenosis or occlusion in the carotid or vertebral arteries of the neck. No evidence for large vessel occlusion or other focal vascular abnormality in the [place] region. Electronically Signed: Shawna Slaeh MD at 13:42 EDT Reading Location ID and State: [facility] / [place] Tel , Service support , ADDENDUM: 02/27/23 1350 IMPRESSION: No evidence for significant stenosis or occlusion in the carotid or vertebral arteries of the neck. No evidence for large vessel occlusion or other focal vascular abnormality in the [place] region. N.B. : The above Results were Read Back by Shawna Saleh MD to Debby Byrne RN, and understanding confirmed on 02/27/2023 13:43:28 (ET). Electronically Signed: Shawna Saleh MD at 13:42 EDT Reading Location ID and State: [facility] / [place] Tel , Service support , Physical Exam Narrative General: Alert, Cooperative HEENT: Atraumatic, PERRLA, EOMI, Normocephalic Oral: Moist Mucosa Neck: Supple, No JVD Lungs: Clear to auscultation, Normal air movement, No rhonchi, No wheeze, No rales Cardiovascular: Regular rate, Regular Rhythm, Normal S1, Normal S2, No murmurs Abdomen: Soft, Non Tender, Non-Distended, No Hepato-splenomegaly Extremities: No edema, Capillary Refill Less than 3 Seconds Skin: No rashes, No breakdown Musculoskeletal: No Tenderness to Palpation of Joints or Extremities Neurological: Cranial nerves II-XII grossly intact, Motor Exam 5/5 strength throughout, Sensory exam intact to light touch and pain Psych/Mental Status: Flat Assessment & Plan Assessment/Plan (1) Thrombocytopenia: (2) Alcoholism: (3) HTN (hypertension): PLAN: Plan 1. Acute alcohol withdrawal/leukopenia and thrombocytopenia/elevated LFTs ?Continue with the phenobarbital taper ? Wean Precedex drip as able ? Discussed tobacco cessation, will provide a nicotine patch ? Decrease in white blood cell count and platelet count is related to likely marrow suppression from his alcohol ? Elevated LFTs are due to alcohol and appear to be improving ? Need to follow-up with 180 DVT: SCDs secondary to thrombocytopenia Charges/Coding Visit Charges Inpatient E&M: 81965 Subs Hosp L2
[2023-02-28] MEDS: Gabapentin 300 MG Capsule PO (17:29)
[2023-02-28] MEDS: Dicyclomine 10 MG Capsule 20 MG PO (17:29)
--- NOTE | 2023-02-28 20:14 | NURSING ---
Pt c/o feeling real jittery, can I have IV medicine again? MAR reviewed and pt informed of medication available and he pointed to the IV pole in his room with the Precedex bag, stated, I need that stuff back on. IV patency verified and precedex restarted at 0.2mcg.
[2023-03-01] VITALS (11 sets, daily range): BP systolic 92–128; BP diastolic 53–92; PULSE 71–103; RESP 9–18; TEMP 36.6–36.8; O2SAT 97–100; BMI 28.3
[2023-03-01] MEDS: Folic Acid 1 MG Tablet PO (08:28)
[2023-03-01] MEDS: Thiamine Hydrochloride 100 MG Tablet PO (08:28)
--- NOTE | 2023-03-01 10:13 | DCINST_ITS ---
Discharge Instructions Diet Discharge Diet: No restrictions Activity Discharge Activity: Return to Normal Activity Dressing / Incision Call your doctor if you observe: Fever of 101 or Higher, Shortness of breath, Dizziness, Fainting spells, Swelling in the ankles, Chest pain and Increased palpitations (irregular heartbeat) Follow Up Care Test Results: Test results from this visit will be discussed in further detail at your follow- up appointment, if applicable. Discharge Plan Admission Admit Date/Time: 02/23/23 02:35 Attending Provider: Alli Wood Primary Care Provider: Colin Santana Consulting Providers: Amarjit Leyva Discharge Orders/Prescriptions Prescriptions: Continued aspirin 81 mg Capsule 81 mg PO DAILY Referrals / Follow Up: Colin Santana MD [Primary Care Provider] - Disposition Disposition (needs filled in before D/C Order can be placed): Home, Self Care
--- NOTE | 2023-03-01 11:30 | DS.PCM_ITS ---
Providers Date of Admission: 02/23/23 Primary Care Physician: Dr. Colin Santana MD Reason For Visit: DESIRE FOR DETOXIFICATION Diagnosis Discharge Diagnosis (1) Thrombocytopenia: Status: Acute Code(s): D69.6 - Thrombocytopenia, unspecified (2) Alcoholism: Status: Acute Code(s): F10.20 - Alcohol dependence, uncomplicated (3) HTN (hypertension): Status: Chronic Code(s): I10 - Essential (primary) hypertension Medications at Discharge Home Medications aspirin 81 mg capsule 81 mg PO DAILY 02/22/23 Hospital Course Operations None Procedures None Summary of Care Provided Minutes Spent on Discharge: 35 Hospital Course: Per HPI: ASCENCION PITTMAN, is a 47 M with a significant history of tobacco abuse; and alcoholism who presents to the emergency department for help with alcohol detoxification.? Patient drinks more than a fifth of 80% alcohol proof vodka.? Last time he drank was about 3 hours before presentation.? He has been drinking on and off for about 15 years. He reports that early mornings he has tremors and has to drink to ivana these tremors. Hospital Course: 1. Acute alcohol withdrawal with hallucinations/leukopenia and th rombocytopenia/elevated LFTs?47-year-old male with significant alcohol abuse presented with a blood alcohol level greater than 450 for detox. He was started on the alcohol withdrawal protocol however on day 3 he developed significant agitation and hallucinations and was transferred to the ICU and placed on a Precedex drip. He was maintained on this for a few days and was ultimately w eaned off on the day of discharge. He denies any hallucinations and he is no longer agitated. His CIWA score today was at 2. I discussed with him at length throughout his admission about the benefits of going to an inpatient rehab unit he remains uninterested in this discharge plan. He does have outpatient follow- up for his drinking which she states he is willing to continue with. He did have elevated LFTs on admission and liver ultrasound demonstrated fatty infiltration. He does also have anemia and thrombocytopenia which is likely related to his alcohol abuse as its been chronic since 2019. I discussed with him the plan for possible discharge today and he expressed understanding of the risk and benefits of going home and he would like to go home today. I do recommend close outpatient monitoring with rehab. Physical Exam Narrative General: Alert, oriented x3, Cooperative HEENT: Atraumatic, PERRLA, EOMI, Normocephalic Oral: Moist Mucosa Neck: Supple, No JVD Lungs: Clear to auscultation, Normal air movement, No rhonchi, No wheeze, No rales Cardiovascular: Regular rate, Regular Rhythm, Normal S1, Normal S2, No murmurs Abdomen: Soft, Non Tender, Non-Distended, No Hepato-splenomegaly Extremities: No edema, Capillary Refill Less than 3 Seconds Skin: No rashes, No breakdown Musculoskeletal: No Tenderness to Palpation of Joints or Extremities Neurological: Cranial nerves II-XII grossly intact, Motor Exam 5/5 strength throughout, Sensory exam intact to light touch and pain Psych/Mental Status: Flat Weight / BMI Weight Weight: 191 lb 2.252 oz Body Mass Index (BMI) 28.3 ABG / Lab / Microbiology Data Result Diagrams: 02/27/23 04:50 02/27/23 04:50 Microbiology: Microbiology 02/23/23 00:15 Stool Stool Occult Blood (SHANNAN) - Final D/C Instructions Discharge Diet: No restrictions Call your doctor if you observe: Fever of 101 or Higher, Shortness of breath, Dizziness, Fainting spells, Swelling in the ankles, Chest pain and Increased palpitations (irregular heartbeat) Meaningful Use Info Meaningful Use Diagnoses (Choose all that apply): None applicable Discharge Plan Admission Admit Date/Time: 02/23/23 02:35 Attending Provider: Alli Wood Primary Care Provider: Colin Santana Consulting Providers: Amarjit Leyva Discharge Orders/Prescriptions Prescriptions: Continued aspirin 81 mg Capsule 81 mg PO DAILY Referrals / Follow Up: Colin Santana MD [Primary Care Provider] - Disposition Disposition (needs filled in before D/C Order can be placed): Home, Self Care Charges/Coding Visit Charges Inpatient E&M: 46413 Disch Hosp >30min
[2023-03-01 12:57] LABS: Pathologist Review Reviewed
== END 2023-03-01 10:50 | disposition home or self-care (01) | DRG 897 ==
LOC: ED 02-23 01:43 → MS3 02-23 03:27 → ICU 02-25 17:25
PROVIDERS: Admitting Provider Hospitalist; Emergency Provider Emergency Medicine; PCP Family Medicine; Visit Provider Family Medicine
DX: F10.239 Alcohol dependence with withdrawal, unspecified (principal); D61.818 Other pancytopenia; R44.3 Hallucinations, unspecified; D69.6 Thrombocytopenia, unspecified; D70.9 Neutropenia, unspecified; K76.0 Fatty (change of) liver, not elsewhere classified; I10 Essential (primary) hypertension; F17.210 Nicotine dependence, cigarettes, uncomplicated; H53.9 Unspecified visual disturbance; R45.1 Restlessness and agitation; Y90.8 Blood alcohol level of 240 mg/100 ml or more; R20.2 Paresthesia of skin; Z79.82 Long term (current) use of aspirin
CPT/HCPCS: 36415; 70450; 70496; 70498; 76705; 80048; 80053; 80076; 80307; 81001; 82077; 82274; 82607; 82746; 82962; 85025; 85610; 85730; 93005; 99284; 99406; J7040; J7050; Q9967; A4216

== ENCOUNTER 2024-03-21 07:38 | Inpatient (IN) | payer OTHER, SELFPAY ==
[2024-03-21] VITALS (10 sets, daily range): BP systolic 111–148; BP diastolic 73–110; PULSE 67–120; RESP 14–116; TEMP 36.3–37.2; O2SAT 94–100; BMI 25.2
--- NOTE | 2024-03-21 07:50 | EDS_ITS ---
HPI History of Present Illness Chief Complaint: Substance Abuse Detail of Chief Complaint: Requesting detox from alcohol Informant: patient Narrative Narrative: Patient presents to the emergency department with request for detox from alcoho l. Patient states that he normally drinks about A half a gallon a day. Last drink was about an hour ago. Patient is here because his son came to him yesterday and told him he needed to quit. Patient has had 1 other episode where years ago he went through detox and was clean for some time. Patient denies fever or vomiting or diarrhea. Denies abdominal pain. He denies history of seizures. Patient is a smoker and admits occasional marijuana use. [facility] Medical History Alcoholism Substance abuse Kidney stones Sleep apnea Asthma Seizures Neutropenia Thrombocytopenia Alcohol dependence Smoker TIA (transient ischemic attack) Hypertension Alcohol abuse HTN (hypertension) Home Medications ?Medication ?Instructions ?Recorded ?Last Taken ?Type aspirin 81 mg capsule 81 mg PO DAILY 02/22/23 03/20/24 History Allergy/AdvReac Type Severity Reaction Status Date / Time No Known Allergies Allergy Verified 03/21/24 08:26 Family History Other Alcoholism Heart disease Suicide Social History Smoking Status: Heavy Smoker (>10/day) ROS ROS ED ROS Narrative Requesting detox from alcohol Review of Systems ROS Unobtainable: other Constitutional Constitutional ED: Reports lethargy; Denies chills, fever(s), sweats or weight loss Eyes Eyes: Denies blurry vision, change in vision or diplopia ENT ENT ED: Denies rhinorrhea or sore throat Cardiovascular Cardiovascular: Denies chest pain, orthopnea or racing heartbeat Respiratory/Chest Respiratory/Chest: Denies cough, dyspnea, dyspnea on exertion, orthopnea or sputum Gastrointestinal Gastrointestinal: Denies abdominal pain, diarrhea, nausea or vomiting Genitourinary Genitourinary ED: Denies dysuria, hematuria or urinary frequency Musculoskeletal Musculoskeletal: Denies arthralgias, back pain, myalgias or neck pain Integumentary Denies abscess, Abrasions or rash Neurologic Neurologic: Denies headache(s) or weakness Psychiatric Psychiatric: Denies anxiety, depression or suicidal thoughts Endocrine Endocrinology: Denies polydipsia, polyphagia or polyuria Hematologic/Lymphatic Hematologic/Lymphatic: Denies easy bleeding, easy bruising or lymphadenopathy Allergic/Immunologic Allergic/Immunologic ED: Denies mouth swelling, tongue swelling or urticaria EXAM Physical Exam Const Vital Signs: 03/21/24 07:39 03/21/24 07:46 03/21/24 08:38 Temperature 98.6 F 97.7 F L Temperature Source Temporal Temporal Pulse Rate 120 H 89 77 Respiratory Rate 18 116 H 16 Blood Pressure 148/110 H 114/99 H 118/91 H Blood Pressure Mean 122 104 100 Blood Pressure Source Monitor Blood Pressure Position Supine Blood Pressure Location Left Arm Pulse Ox 98 94 97 Oxygen Delivery Method Room Air Room Air Room Air 03/21/24 09:00 Temperature Temperature Source Pulse Rate 74 Respiratory Rate 16 Blood Pressure 116/83 H Blood Pressure Mean 94 Blood Pressure Source Blood Pressure Position Blood Pressure Location Pulse Ox 95 Oxygen Delivery Method Room Air Positive well nourished and well developed General Appearance ED: well developed and NAD HEENT Reports TM's clear and moist mucous membranes normocephalic and atraumatic; Negative for trauma or tenderness Tympanic Membrane ED: Yes TM's clear Eyes PERRL and EOMs intact bilaterally General Eye ED: Negative for pale conjunctiva or scleral icterus Neck no lymphadenopathy, supple and no JVD General: Negative for tenderness Chest Wall inspection of chest normal and palpation of chest normal Chest: Negative for tenderness Resp normal respiratory effort and clear to auscultation bilaterally Effort and Inspection: Negative for respiratory distress or pain with movement Auscultation: Negative for rhonchi, wheezes or diminished lung sounds Cardio regular rate, regular rhythm, S1 normal heart sound, S2 normal heart sound and no murmurs Peripheral Pulses: pulses 2+ throughout GI normal to inspection, nondistended, normoactive bowel sounds, soft to palpation, non-tender, non-distended and no masses Back/Spine no CVA tenderness and no thoracic nor lumbar tenderness Extremity normal to inspection General Extremety ED: Negative for edema General Extremity: Negative for edema Neuro oriented x3, CN's II-XII intact bilaterally, no sensory deficits noted and gait normal Sensorium / Orientation: awake, alert, oriented to person, oriented to place and oriented to time Motor Exam: strength 5/5 throughout and strength abnormal Psych mental status grossly normal Skin no rashes or lesions noted and no wounds MDM MDM MDM Narrative Medical decision making narrative: Patient presents emergency department requesting detox from alcohol. IV line established. CBC with differential count 3.0 with hemoglobin 14.9 and platelet count of 55,000 which is chronically low. Chemistries unremarkable. Patient does have an elevated AST of 294 and an ALT of 158 again this is chronic finding. Alcohol level 473. Case will be discussed with hospitalist to evaluate patient for admission. Lab Data Attestation: I reviewed the patient's lab results. Labs: Laboratory Results - last 24 hr 03/21/24 03/21/24 07:35 08:35 WBC 3.0 L RBC 4.54 L Hgb 14.9 Hct 43.1 MCV 94.9 H MCH 32.8 H MCHC 34.6 RDW Std Deviation 47.3 H RDW Coeff of Raz 13.4 Plt Count 55 L MPV 10.4 Immature Gran % (Auto) 0.300 Neut % (Auto) 45.7 L Lymph % (Auto) 35.7 Shannon % (Auto) 16.3 H Eos % (Auto) 0.3 Baso % (Auto) 1.7 H Absolute Neuts (auto) 1.4 L Absolute Lymphs (auto) 1.07 Nucleated RBC % 0 Sodium 141 Potassium 3.5 Chloride 104 Carbon Dioxide 23.0 Anion Gap 14 BUN 9 Creatinine 0.70 Estim Creat Clear Calc 124.86 Est GFR (MDRD) Af Amer 155 Est GFR (MDRD) Non-Af 128 BUN/Creatinine Ratio 12.9 Glucose 87 Calcium 8.8 Total Bilirubin 0.80 AST 294 H ALT 158 H Alkaline Phosphatase 60 Total Protein 7.9 Albumin 4.4 Globulin 3.5 Albumin/Globulin Ratio 1.3 Urine Opiates Screen NEGATIVE Urine Methadone Screen NEGATIVE Ur Barbiturates Screen NEGATIVE Ur Phencyclidine Scrn NEGATIVE Ur Amphetamines Screen NEGATIVE MDMA (Ecstasy) Screen NEGATIVE U Benzodiazepines Scrn NEGATIVE Urine Cocaine Screen NEGATIVE U Cannabinoids Screen POSITIVE H Ur Drug Screen Comment Ethyl Alcohol 473.0 H* Discharge Plan Dx/Rx/DC Orders Clinical Impression: Alcohol intoxication, Admitted to alcohol detoxification center, Thrombocytopenia, Elevated liver enzymes Disposition Disposition: Acute Care Hospital [facility] Discharge Date/Time: 03/21/24 10:18
[2024-03-21] MEDS: 0.9% Normal Saline (1000mL) 1,000 ML 150 ML IV (08:09)
[2024-03-21 08:30] LABS: Absolute Lymphocyte Count 1.07 X10^3/uL (0.83-4.51); Absolute Neutrophil Count 1.4 X10^3/uL (2.0-7.7); Basophil# 0.05 X10^3/uL; Basophil% 1.7 % (0-1); Eosinophil# 0.01 X10^3/uL; Eosinophils% 0.3 % (0-5); Hematocrit 43.1 % (40-54); Hemoglobin 14.9 g/dL (13.0-16.5); Lymphocyte # 1.07 X10^3/ul (0.83-4.51); Lymphocyte % 35.7 % (19-41); Mean Corp Hgb Conc 34.6 g/dL (32-36); Mean Corpuscular Hgb 32.8 pg (27.0-32.0); Mean Corpuscular Volume 94.9 fL (80-94); Mean Platelet Vol. 10.4 fl (6.2-12.0); Monocyte# 0.49 X10^3/uL; Monocyte% 16.3 % (0-10); NRBC Flagged by Analyzer 0 % (0-5); Neutrophil # 1.37 X10^3/uL (2.7-7.7); Neutrophil % 45.7 % (47-70); POSITIVE COUNT YES; Platelet Count 55 K/mm3 (150-450); RBC Distribution Width CV 13.4 % (11.6-14.6); RBC Distribution Width SD 47.3 fl (35.1-43.9); Red Blood Count 4.54 M/mm3 (4.6-6.2)
[2024-03-21 09:01] LABS: ALB/GLOB Ratio 1.3 RATIO (0.9-2.4); AST(SGOT) 294 U/L (15-37); Alanine Aminotransfer ALT/SGPT 158 U/L (16-61); Albumin, Serum 4.4 g/dL (3.2-5.0); Alkaline Phosphatase 60 U/L (45-117); Anion Gap 14 (5-15); BUN 9 mg/dL (7-18); BUN/Creat Ratio 12.9 RATIO (10-20); Calcium,Total 8.8 mg/dL (8.5-10.1); Chloride 104 mmol/L (98-107); EST Glomerular Filtration Rate 128 mL/min (>60); Est Glom Filt Rate - Afr Amer 155 mL/min (>60); Estimated Creatinine Clearance 124.86 ml/min; Globulin 3.5 g/dL (2.2-4.2); Glucose 87 mg/dL (74-106); Potassium 3.5 mmol/L (3.5-5.1); Protein, Total 7.9 g/dL (6.4-8.2); Sodium Level 141 mmol/L (136-145)
[2024-03-21 09:45] LABS: Amphetamine Urine VISTA NEGATIVE (<1000 ng/mL); Barbiturate Urine VISTA NEGATIVE (< 200 ng/mL); Benzodiazepine Urine VISTA NEGATIVE (< 200 ng/mL); Cocaine Urine VISTA NEGATIVE (< 300 ng/mL); Ecstacy Urine VISTA NEGATIVE (< 500 ng/mL); Methadone Urine VISTA NEGATIVE (< 300 ng/mL); PCP Urine VISTA NEGATIVE (< 25 ng/mL); THC Urine VISTA POSITIVE (< 50 ng/mL); Vista UDS pH Range 6
--- NOTE | 2024-03-21 10:49 | ADDICTION ---
This blurb writer met with PT to conduct ASAM, MSE, AUDIT, DUDIT assessments and to plan for d/c. PT A+Ox4 and participated actively. All assessments completed. PT plans to f/u with follow-up treatment services at [facility]. PT did not indicate a need for transportation post d/c from [facility].
[2024-03-21] MEDS: Gabapentin 300 MG Capsule PO ×2 (10:50→20:37)
[2024-03-21] MEDS: Phenobarbital 32.4 MG Tablet 64.8 MG PO ×4 (10:50→22:38)
[2024-03-21] MEDS: Aspirin 81 MG TAB.CHEW PO (11:06)
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
[2024-03-21] MEDS: Glycerin/Hypromellose/PEG400 15 ml Bottle 1 DRP EACH EYE (14:44)
[2024-03-21] MEDS: hydrOXYzine PAM 25 MG Capsule 50 MG PO ×2 (14:44→18:46)
--- NOTE | 2024-03-21 15:22 | CASEMGMT ---
Social Work- met with pt to address self pay status and assess if any other community resources were needed. Pt states that he has [employer], which was verified by registration this afternoon when the pt was in his room. Pt reports that he lost his [employer] job of 2.5 years yesterday. 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 Pt reports that he is going to ask his boss to rehire him, but will collect unemployment and look for a new job if he's unable to be rehired. Pt reports that he has next month's housing payment set aside, has paid his bills up this month, and recently bought groceries. Pt reports that he will financially be okay through April. Pt reports that he has no utilities or food needs at that time and decline resources for any future needs that may arise from his unemployment. Pt reports that his son brought him in this morning d/t his drinking. Pt reports that he used oxycodone prescribed for his foot at one time, using 3, 30 mg tablets per day. Pt also reports that he quit drinking once prior, but had a small sip in a social setting and it led to increasingly more drinking until pt ended at his current rate of a half gallon of vodka per day. Pt reports that he wants to quit, as he has a 2 year old grandchild and his daughter is going to have another baby soon. Pt states that his father and grandfather were alcoholics and he does not want his grandkids to know him as an alcoholic. Pt reports that he has good family support and is open to [facility] services. Pt reports that he attempted to utilize [facility] services at prior drinking cessation, however, he called several times and was told there weren't people for him to speak with. Pt reports that he really enjoyed meeting with the consumer education specialist who visited this morning and prefers to have peer-type supports rather than someone 'preaching'. Pt reports no additional needs at this time. SW remains available to follow. SAY Hdez
[2024-03-21] MEDS: traZODone 100 MG Tablet PO (20:37)
[2024-03-21] MEDS: Ondansetron 8 MG Tablet PO (22:37)
[2024-03-21] MEDS: Loperamide 2 MG Capsule PO (22:37)
[2024-03-22] MEDS: hydrOXYzine PAM 25 MG Capsule 50 MG PO (02:43)
[2024-03-22] MEDS: Phenobarbital 32.4 MG Tablet 64.8 MG PO ×6 (02:43→21:44)
[2024-03-22 02:45] VITALS: BP 103/64; PULSE 61; RESP 16; TEMP 36.8; O2SAT 99
[2024-03-22 08:47] VITALS: BP 118/75; PULSE 65; RESP 18; TEMP 36.9; O2SAT 100
[2024-03-22] MEDS: Thiamine Hydrochloride 100 MG Tablet PO (08:52)
[2024-03-22] MEDS: Folic Acid 1 MG Tablet PO (08:52)
[2024-03-22] MEDS: Aspirin 81 MG TAB.CHEW PO (08:52)
[2024-03-22] MEDS: Glycerin/Hypromellose/PEG400 15 ml Bottle 1 DRP EACH EYE (08:52)
--- NOTE | 2024-03-22 09:39 | PCM.PN.HOSP ---
Subjective Subjective Doing well, no issues overnight. CIWA score of 7 Objective Data Objective Data Vital Signs: Vital Signs Temp Pulse Resp BP Pulse Ox O2 Del Method 98.4 F 65 18 118/75 100 Room Air 03/22/24 08:47 03/22/24 08:47 03/22/24 08:47 03/22/24 08:47 03/22/24 08:47 03/22/24 08:55 Oxygen Delivery Method Room Air Weight: 169 lb 15.622 oz Body Mass Index (BMI) 25.2 Intake & Output: Intake and Output for Last 24 Hours 03/21/24 03/22/24 03/23/24 03:59 03:59 03:59 Intake Total 627.5 / 627.5 Balance 627.5 / 627.5 Lab / Micro Data 03/21/24 07:35 03/21/24 07:35 Labs: Laboratory Results - last 24 hr 03/21/24 08:35: Urine Opiates Screen NEGATIVE, Urine Methadone Screen NEGATIVE, Ur Barbiturates Screen NEGATIVE, Ur Phencyclidine Scrn NEGATIVE, Ur Amphetamines Screen NEGATIVE, MDMA (Ecstasy) Screen NEGATIVE, U Benzodiazepines Scrn NEGATIVE, Urine Cocaine Screen NEGATIVE, U Cannabinoids Screen POSITIVE H Physical Exam Narrative General: Alert, Oriented x3, Cooperative, No apparent distress, anxious HEENT: Atraumatic, PERRLA, EOMI, Normocephalic Oral: Moist Mucosa Neck: Supple, No JVD Lungs: Clear to auscultation, Normal air movement, No rhonchi, No wheeze, No rales Cardiovascular: Regular rate, Regular Rhythm, Normal S1, Normal S2, No murmurs Abdomen: Soft, Non Tender, Non-Distended, No Hepato-splenomegaly Extremities: No edema, Capillary Refill Less than 3 Seconds Skin: No rashes, No breakdown Musculoskeletal: No Tenderness to Palpation of Joints or Extremities Neurological: No focal neurological deficits, Motor Exam 5/5 strength throughout, Sensory exam intact to light touch and pain Psych/Mental Status: Normal Affect, Appropriate Assessment & Plan Assessment/Plan (1) Alcohol intoxication: PLAN: Plan 1. Acute alcohol withdrawal/leukopenia and thrombocytopenia/elevated LFTs ?Continue with the alcohol withdrawal protocol ? Discussed tobacco cessation, will provide a nicotine patch ? Decrease in white blood cell count and platelet count is related to likely marrow suppression from his alcohol ? Elevated LFTs are due to alcohol and appear to be improving ? Need to follow-up with 180 DVT: Ambulation Charges/Coding Visit Charges Inpatient E&M: 46381 Subs Hosp L2
[2024-03-22 14:00] VITALS: BP 124/85; PULSE 66; RESP 18; TEMP 37; O2SAT 100
[2024-03-22 18:00] VITALS: BP 127/90; PULSE 69; RESP 18; TEMP 36.5; O2SAT 98
[2024-03-22 21:48] VITALS: BP 127/85; PULSE 76; RESP 16; TEMP 36.8; O2SAT 99
[2024-03-22] MEDS: traZODone 100 MG Tablet PO (21:57)
[2024-03-23 02:28] VITALS: BP 123/87; PULSE 66; RESP 16; TEMP 36.6; O2SAT 100
[2024-03-23] MEDS: Phenobarbital 32.4 MG Tablet 64.8 MG PO ×6 (02:29→23:40)
[2024-03-23 06:00] VITALS: BP 130/84; PULSE 89; RESP 16; TEMP 36.4; O2SAT 100
[2024-03-23 07:31] VITALS: BP 114/98; PULSE 74; RESP 16; TEMP 36.1; O2SAT 100
[2024-03-23] MEDS: Aspirin 81 MG TAB.CHEW PO (07:51)
[2024-03-23] MEDS: Folic Acid 1 MG Tablet PO (07:51)
[2024-03-23] MEDS: Thiamine Hydrochloride 100 MG Tablet PO (07:51)
[2024-03-23] MEDS: hydrOXYzine PAM 25 MG Capsule 50 MG PO ×2 (09:48→20:58)
--- NOTE | 2024-03-23 11:57 | PCM.PN.HOSP ---
Subjective Subjective Doing well, no issues overnight. CIWA score of 2 Objective Data Objective Data Vital Signs: Vital Signs Temp Pulse Resp BP Pulse Ox O2 Del Method 97.0 F L 74 16 114/98 H 100 Room Air 03/23/24 07:31 03/23/24 07:31 03/23/24 07:31 03/23/24 07:31 03/23/24 07:31 03/23/24 07:31 Oxygen Delivery Method Room Air Weight: 169 lb 15.622 oz Body Mass Index (BMI) 25.2 Intake & Output: Intake and Output for Last 24 Hours 03/22/24 03/23/24 03/24/24 03:59 03:59 03:59 Intake Total 627.5 / 627.5 200 / 200 200 / 200 Balance 627.5 / 627.5 200 / 200 200 / 200 Lab / Micro Data 03/21/24 07:35 03/21/24 07:35 Physical Exam Narrative General: Alert, Oriented x3, Cooperative, No apparent distress, anxious HEENT: Atraumatic, PERRLA, EOMI, Normocephalic Oral: Moist Mucosa Neck: Supple, No JVD Lungs: Clear to auscultation, Normal air movement, No rhonchi, No wheeze, No rales Cardiovascular: Regular rate, Regular Rhythm, Normal S1, Normal S2, No murmurs Abdomen: Soft, Non Tender, Non-Distended, No Hepato-splenomegaly Extremities: No edema, Capillary Refill Less than 3 Seconds Skin: No rashes, No breakdown Musculoskeletal: No Tenderness to Palpation of Joints or Extremities Neurological: No focal neurological deficits, Motor Exam 5/5 strength throughout, Sensory exam intact to light touch and pain Psych/Mental Status: Normal Affect, Appropriate Assessment & Plan Assessment/Plan (1) Alcohol intoxication: PLAN: Plan 1. Acute alcohol withdrawal/leukopenia and thrombocytopenia/elevated LFTs ?Continue with the alcohol withdrawal protocol ? Discussed tobacco cessation, will provide a nicotine patch ? Decrease in white blood cell count and platelet count is related to likely marrow suppression from his alcohol ? Elevated LFTs are due to alcohol and appear to be improving ? Need to follow-up with 180 DVT: Ambulation Charges/Coding Visit Charges Inpatient E&M: 15571 Subs Hosp L2
[2024-03-23 14:53] VITALS: BP 124/88; PULSE 72; RESP 16; TEMP 36.7; O2SAT 100
[2024-03-23] MEDS: traZODone 100 MG Tablet PO (20:58)
[2024-03-23 21:01] VITALS: BP 143/92; PULSE 87; RESP 18; TEMP 36.6; O2SAT 99
--- NOTE | 2024-03-23 21:03 | NURSING ---
PT came to desk to ask for new nicotine patch due to old one falling off, this rn into room to replace heard a phone ring and pt had broken ties on his tote & got his phone out. Talked with pt about the contract he signed for [employer], showed pt contract hanging in his room. top of tote broken, removed from room, phone turned off and new lid obtained and locked with ties by digital account supervisor, armband on tote in charge office. pt aware he can have at dc in am. pt apologized
[2024-03-23] MEDS: Gabapentin 300 MG Capsule PO (23:40)
--- NOTE | 2024-03-23 23:40 | NURSING ---
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
--- NOTE | 2024-03-24 00:35 | NURSING ---
pt pulled cord of bed out of wall setting off bed exit talking about his son von being here, attempted to reorient pt. pt returned to bed, but observed peering behind the head of his bed as if looking for someone. will notify
[2024-03-24] MEDS: hydrOXYzine 50 MG/ML Vial 100 MG IM (01:12)
[2024-03-24 01:17] VITALS: BP 138/93; PULSE 99; RESP 16; TEMP 36.4; O2SAT 100
--- NOTE | 2024-03-24 01:20 | NURSING ---
gladys vasquez states he is looking for the garage redirected back to his room vistaril injection given
--- NOTE | 2024-03-24 01:30 | NURSING ---
nursing supv and rn care manager aware pt leaving ama
--- NOTE | 2024-03-24 01:34 | NURSING ---
security accompanied pt to ed to be picked up by his contact printer dry film
--- NOTE | 2024-03-24 01:41 | PCM.HOSP.N ---
Hospitalist Note I was called by the RN and informed this patient was lucid and demanded to be discharged AMA. He signed the AMA papers and his emergency contact is coming to pick him up.
== END 2024-03-24 01:34 | disposition left against medical advice (07) | DRG 894 ==
LOC: ED 09:18 → MS3 09:47
PROVIDERS: Emergency Provider Emergency Medicine; PCP Family Medicine; Visit Provider Family Medicine
DX: F10.239 Alcohol dependence with withdrawal, unspecified (principal); D69.6 Thrombocytopenia, unspecified; K70.10 Alcoholic hepatitis without ascites; D72.819 Decreased white blood cell count, unspecified; F12.90 Cannabis use, unspecified, uncomplicated; F17.200 Nicotine dependence, unspecified, uncomplicated; Y90.8 Blood alcohol level of 240 mg/100 ml or more; Z79.82 Long term (current) use of aspirin; Z86.73 Personal history of transient ischemic attack (TIA), and cerebral infarction without residual deficits
CPT/HCPCS: 80053; 80307; 82077; 85025; 97802; 99284; 99406; J7030; A4216

== ENCOUNTER 2025-07-05 22:28 | Inpatient (IN) | payer BC, SELFPAY ==
[2025-07-05 22:28] VITALS: BP 137/99; PULSE 96; RESP 19; TEMP 36.6; O2SAT 100
[2025-07-05 22:53] VITALS: BMI 29.8
--- NOTE | 2025-07-05 23:13 | EKG12_ITS ---
Test Reason : DYSRHYTHMIA
[2025-07-05 23:28] VITALS: BP 127/96; PULSE 80; RESP 16; O2SAT 97
--- NOTE | 2025-07-05 23:35 | RAD_ITS ---
PROCEDURE: RAD/Chest 1 View (Portable)
[2025-07-05 23:46] LABS: Hematocrit 44.9 % (40-54); Hemoglobin 16.0 g/dL (13.0-16.5); Immature Granulocytes Count 0.010 X10^3/uL (0.0-0.0); Mean Corp Hgb Conc 35.6 g/dL (32-36); Mean Corpuscular Volume 91.8 fL (80-94); Mean Platelet Vol. 11.1 fl (6.2-12.0); NRBC Flagged by Analyzer 0 % (0-5); POSITIVE COUNT YES; Platelet Count 58 K/mm3 (150-450); RBC Distribution Width CV 11.9 % (11.6-14.6); RBC Distribution Width SD 40.2 fl (35.1-43.9); Red Blood Count 4.89 M/mm3 (4.6-6.2); White Blood Count 3.1 K/mm3 (4.4-11.0)
[2025-07-06] VITALS (8 sets, daily range): BP systolic 107–140; BP diastolic 61–96; PULSE 64–115; RESP 16–18; TEMP 36.6–36.9; O2SAT 94–100; BMI 28.4
[2025-07-06 00:04] LABS: Prothrombin Time (Protime)PT. 13.5 SECONDS (11.7-14.9)
[2025-07-06 00:13] LABS: Barbiturate Urine NEGATIVE (< 200 ng/mL); Benzodiazepine Urine NEGATIVE (< 200 ng/mL); PCP Urine NEGATIVE (< 25 ng/mL); THC Urine PRESUMPTIVE POSITIVE (< 50 ng/mL)
[2025-07-06 00:14] LABS: Alcohol, Blood (Medical)-Serum 347.0 mg/dL (<=10.0)
[2025-07-06 00:15] LABS: AST(SGOT) 190 U/L (<=37); Alanine Aminotransfer ALT/SGPT 126 U/L (<=46); Albumin, Serum 4.9 g/dL (3.5-5.0); Alkaline Phosphatase 54 U/L (40-129); Anion Gap 17 (5-15); BUN 5 mg/dL (4-19); BUN/Creat Ratio 6.3 RATIO (10-20); Bilirubin, Direct 0.36 mg/dL (0.00-0.30); Calcium,Total 9.5 mg/dL (7.6-11.0); Carbon Dioxide 22.7 mmol/L (21.0-32.0); Chloride 103 mmol/L (98-108); Estimated Creatinine Clearance 129.21 ml/min (50-250); Globulin 3.0 g/dL (2.2-4.2); Glucose 98 mg/dL (70-99); Magnesium 2.3 mg/dL (1.5-2.2); Potassium 3.8 mmol/L (3.3-5.1)
--- NOTE | 2025-07-06 00:24 | EX.ED.DYSGE1 ---
HPI History of Present Illness Chief Complaint: ETOH Intox Informant: patient Narrative Narrative: 50-year-old male requesting detox from alcohol. Patient states for the past 6 months he has been drinking alcohol again. He has previously detoxed at this hospital. He states that he has been drinking significantly amount more. He states that his body is not doing well. He notes paresthesias of the legs. He notes that he is not smoking. He states that he coughs when he gets up and has been having some chest discomfort. States sometimes he coughs until he brings up phlegm or some blood. He last drank about an hour and a half ago. 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 [facility] Medical History Alcoholism Substance abuse Kidney stones Sleep apnea Asthma Seizures Neutropenia Thrombocytopenia Alcohol dependence Smoker TIA (transient ischemic attack) Hypertension Alcohol abuse HTN (hypertension) Home Medications ?Medication ?Instructions ?Recorded ?Last Taken ?Type NK 07/05/25 Unknown History Allergy/AdvReac Type Severity Reaction Status Date / Time No Known Allergies Allergy Verified 07/05/25 22:29 Family History Other Alcoholism Heart disease Suicide Social History Smoking Status: Heavy Smoker (>10/day) ROS [facility] ED Constitutional Constitutional ED: Reports sweats and other Details: Dizziness ; Denies chills, fever(s) or weight loss Eyes Eyes: Denies change in vision or diplopia ENT ENT ED: Denies ear pain, rhinorrhea or sore throat Cardiovascular Cardiovascular: Reports chest pain; Denies orthopnea, palpitations or racing heartbeat Respiratory/Chest Respiratory/Chest: Reports cough; Denies dyspnea or orthopnea Gastrointestinal Gastrointestinal: Reports diarrhea and nausea; Denies abdominal pain or vomiting Genitourinary Genitourinary ED: Denies dysuria, hematuria or urinary frequency Musculoskeletal Musculoskeletal: Denies arthralgias or myalgias Integumentary Denies abscess or rash Neurologic Neurologic: Reports paresthesias; Denies headache(s) or weakness Psychiatric Psychiatric: Denies anxiety, depression, suicidal ideation or suicidal thoughts Endocrine Endocrinology: Denies polydipsia, polyphagia or polyuria Allergic/Immunologic Allergic/Immunologic ED: Denies mouth swelling, tongue swelling or urticaria EXAM Physical Exam Const Vital Signs: 07/05/25 22:28 07/05/25 23:28 07/06/25 00:00 Temperature 98 F Temperature Source Oral Pulse Rate 96 80 83 Respiratory Rate 19 H 16 Blood Pressure 137/99 H 127/96 H 127/96 H Blood Pressure Mean 111 106 106 Pulse Ox 100 97 94 Oxygen Delivery Method Room Air Room Air Room Air 07/06/25 00:29 Temperature 98 F Temperature Source Pulse Rate 83 Respiratory Rate 16 Blood Pressure 127/96 H Blood Pressure Mean 106 Pulse Ox 94 Oxygen Delivery Method Positive well nourished and well developed General Appearance ED: well developed HEENT Reports normocephalic, head/scalp atraumatic and moist mucous membranes Eyes PERRL and EOMs intact bilaterally Neck no lymphadenopathy, supple and no JVD Resp normal respiratory effort and clear to auscultation bilaterally Cardio regular rate, regular rhythm and no murmurs GI normal to inspection, nondistended, normoactive bowel sounds and non-tender Palpation: soft Back/Spine no CVA tenderness and normal ROM Extremity normal to inspection General Extremety ED: Negative for edema General Extremity: Negative for edema Neuro oriented x3 and CN's II-XII intact bilaterally Sensorium / Orientation: alert Motor Exam: strength 5/5 throughout Psych mental status grossly normal Mood & Affect: Negative for depressed or tearful Skin no rashes or lesions noted and no wounds MDM MDM MDM Narrative Medical decision making narrative: Differential diagnosis includes neuropathy electrolyte abnormalities liver dysfunction pneumonia pleural effusion cardiac dysrhythmia alcohol withdrawal anemia vitamin deficiencies Basic blood work is obtained shows a chronic leukopenia 3.1 and chronic thrombocytopenia at 58. Hemoglobin is 16 MCV 91.8. INR is 1. He has ALT and AST elevation at 126/190. Total bilirubin is 0.7. Magnesium 2.3. Normal potassium normal sodium. Toxicology is presumptive positive for cannabinoids for which he readily admits to an alcohol level of 347. My independent interpretation of the chest x-ray is no acute process. EKG is a sinus rhythm. I was speaking with the hospitalist regarding admission History & Record Review Discussion w/independent historian: Patient Additional record(s) reviewed:: Prior inpatient record, Prior ED visit and Prior labs Lab Data Attestation: I reviewed the patient's lab results. Labs: Laboratory Results - last 24 hr 07/05/25 07/05/25 23:25 23:48 WBC 3.1 L RBC 4.89 Hgb 16.0 Hct 44.9 MCV 91.8 MCH 32.7 H MCHC 35.6 RDW Std Deviation 40.2 RDW Coeff of Raz 11.9 Plt Count 58 L MPV 11.1 Immature Gran % (Auto) 0.300 Neut % (Auto) 54.0 Lymph % (Auto) 28.1 [place] % (Auto) 15.7 H Eos % (Auto) 0.3 Baso % (Auto) 1.6 H Absolute Neuts (auto) 1.7 L Absolute Lymphs (auto) 0.88 Nucleated RBC % 0 PT 13.5 INR 1.0 Sodium 143 Potassium 3.8 Chloride 103 Carbon Dioxide 22.7 Anion Gap 17 H BUN 5 Creatinine 0.75 Estim Creat Clear Calc 129.21 Est GFR (MDRD) Non-Af 111 BUN/Creatinine Ratio 6.3 L Glucose 98 Calcium 9.5 Magnesium 2.3 H Total Bilirubin 0.70 Direct Bilirubin 0.36 H AST 190 H ALT 126 H Alkaline Phosphatase 54 Total Protein 7.9 Albumin 4.9 Globulin 3.0 Urine Opiates Screen NEGATIVE U Buprenorphine Qual NEGATIVE Ur Oxycodone Screen NEGATIVE Urine Methadone Screen NEGATIVE Urine Fentanyl Screen NEGATIVE Ur Barbiturates Screen NEGATIVE Ur Phencyclidine Scrn NEGATIVE Ur Amphetamines Screen NEGATIVE U Benzodiazepines Scrn NEGATIVE Urine Cocaine Screen NEGATIVE U Cannabinoids Screen PRESUMPTIVE POSITIVE Ethyl Alcohol 347.0 H* Radiography Diagnostic Testing: Clinical Impression(s) from Imaging Studies Chest X-Ray 07/05/25 23:35 IMPRESSION: No acute pulmonary disease. Reading Location: [id number] EKG Initial EKG: Attestation: I personally reviewed and interpreted this EKG as follows: Comments: Normal sinus rhythm ventricular rate of 93 bpm Management Discussion w/another healthcare provider: Hospitalist Discharge Plan Dx/Rx/DC Orders Clinical Impression: Elevated liver enzymes, Thrombocytopenia, Alcohol intoxication, Alcohol dependence Disposition Disposition: Acute Care Hospital [facility]
--- NOTE | 2025-07-06 00:52 | PCM.HP.STD ---
HPI - General General Date of Admission: 07/06/25 Date of Service: 07/06/25 Chief Complaint: EtOH detoxification request. HPI Narrative The patient is a 50 y/o M w/ PMHx: Tobacco use, Polysubstance abuse, EtOH abuse (8-9, 24 ounce beers daily) with chronic alcoholic associated transaminitis and chronic thrombocytopenia/neutropenia secondary to EtOH abuse, FRANKLIN, Asthma, Hx TIA, HTN, HLD, Seizure disorder who presents to [facility] ED on 07/06/2025 with history of persistent heavy alcohol use over the last at least 6 months reportedly drinking at least 8-9, 24 ounce beers daily with last alcohol intake prior to ED arrival with request for alcohol detoxification assistance. He notes he had been trying to detox himself but upon awakening this evening prior to ED arrival he was tremulous and felt nauseous prompting him to drink 24 ounce beer and request his friend to take him to the ED for detoxification assessment. Currently he feels improved but is still mildly tremulous with tactile disturbances and mild nausea. Workup in the ED included T98, heart rate 96, BP 137/99, respiratory rate 19, 100% on room air with most recent repeat vitals T98, heart rate 83, BP 127/96, respiratory rate 16, 94% on room air, CBC with WC 3.1, human 16, platelet 58 without marked shift with ANC however 1.7, unremarkable coags, CMP with D bili 0.36, AST/ALT 190/126 otherwise not marked appearing, magnesium per ED 2.3, UDS with presumptive positive cannabis, ethyl alcohol level 347, chest x-ray with no acute cardiopulmonary findings, EKG with sinus rhythm with no acute evidence of ischemia. [facility] Medical History Alcoholism Substance abuse Kidney stones Sleep apnea Asthma Seizures Neutropenia Thrombocytopenia Alcohol dependence Smoker TIA (transient ischemic attack) Hypertension Alcohol abuse HTN (hypertension) Home Medications ?Medication ?Instructions ?Recorded ?Last Taken ?Type NK 07/05/25 Unknown History Allergy/AdvReac Type Severity Reaction Status Date / Time No Known Allergies Allergy Verified 07/05/25 22:29 Family History (Updated 07/06/25 @ 02:[address] Myra Hunt MD) Father Heart disease Hypertension Alcoholism Mother Hypertension CVA (cerebral vascular accident) Other Suicide Surgical History (Updated 07/06/25 @ 02:[address] Myra Hunt MD) History of foot surgery History of tonsillectomy and adenoidectomy Social History (Updated 07/06/25 @ 02:[address] Myra Hunt MD) household members: none Smoking Status: Current some day smoker tobacco type: cigarettes Smoking packs per day: 0.75 Smoking cigarettes per day: 15.0 alcohol intake: current alcohol intake frequency: 3 or more drinks per day Alcohol type: hard liquor substance use type: does not use ROS ROS Narrative Admission Review of Systems: CONSTITUTIONAL: No weight loss, fever, chills, + weakness or fatigue. HEENT: Eyes: No visual loss, blurred vision, double vision or yellow sclerae. Ears, Nose, Throat: No hearing loss, sneezing, congestion, runny nose or sore throat. SKIN: No rash or itching, lesions, wounds except + occasional stage ecchymoses, abrasions. CARDIOVASCULAR: No chest pain, chest pressure or chest discomfort, palpitations, edema, orthopnea, syncopal events. RESPIRATORY: No shortness of breath, cough or sputum, wheezing, hemoptysis. GASTROINTESTINAL: + anorexia, nausea. No vomiting or diarrhea, abdominal pain, melena, BRBPR. GENITOURINARY: No dysuria, frequency, urgency or retention. NEUROLOGICAL: + Tactile disturbances, tremors. No headache, dizziness, syncope, paralysis, ataxia, numbness or tingling in the extremities, focal weakness, change in bowel or bladder control, seizure. MUSCULOSKELETAL: + muscle, back pain, joint pain or stiffness. HEMATOLOGIC: No anemia. + Easy bleeding/bruising. LYMPHATICS: No enlarged nodes. No history of splenectomy. PSYCHIATRIC: No history of depression or anxiety. ENDOCRINOLOGIC: No reports of sweating, cold or heat intolerance. No polyuria or polydipsia. ALLERGIES: No history of asthma, hives, eczema or rhinitis. Vital Signs Vital Signs Vital Signs: 07/05/25 22:28 07/05/25 23:28 07/06/25 00:00 Temperature 98 F Temperature Source Oral Pulse Rate 96 80 83 Respiratory Rate 19 H 16 Blood Pressure 137/99 H 127/96 H 127/96 H Blood Pressure Mean 111 106 106 Pulse Ox 100 97 94 Oxygen Delivery Method Room Air Room Air Room Air 07/06/25 00:29 Temperature 98 F Temperature Source Pulse Rate 83 Respiratory Rate 16 Blood Pressure 127/96 H Blood Pressure Mean 106 Pulse Ox 94 Oxygen Delivery Method Weight Weight: 196 lb 6.4 oz Body Mass Index (BMI) 29.8 Physical Exam Narrative Physical Examination: General: Awake, alert, oriented x 3 and cooperative, laying in the bed, fatigued, mildly tremulous. Skin: Normal color, normal turgor, no icterus, no cyanosis except occasional stage ecchymoses, abrasion. HEENT: AT/NC, EOMI, PERRLA, moderately dry MM, no carotid bruits or JVD noted. Lungs: Mildly diminished, greater bases, proper effort, no rales, ronchi or wheezing. Heart: Mildly tachycardic with regular rhythm; no gallop, rub audible. Abdomen: Soft, NTTP, ND, mildly hyperactive BS, + HM. Extremities: No cyanosis, no clubbing, no significant distal edema, evidence status post left fifth toe amputation. Neurological: Patient awake, alert, oriented as noted, cognitive function intact; pupils equally reactive to light and accommodation, cranial nerves grossly normal, moving all 4 extremities, no focal deficits, strength moderately globally decreased secondary to acute presentation, mildly tremulous, admits to tactile disturbances. Psychiatric: Affect appears fatigued, evidence of onset of withdrawal, no acute evidence of depressive or anxiety feelings. Results Lab / Micro Data 07/05/25 23:25 07/05/25 23:25 Labs: Laboratory Results - last 24 hr 07/05/25 23:25: WBC 3.1 L, RBC 4.89, Hgb 16.0, Hct 44.9, MCV 91.8, MCH 32.7 H, MCHC 35.6, RDW Std Deviation 40.2, RDW Coeff of Raz 11.9, Plt Count 58 L, MPV 11.1, Immature Gran % (Auto) 0.300, Neut % (Auto) 54.0, Lymph % (Auto) 28.1, [place] % (Auto) 15.7 H, Eos % (Auto) 0.3, Baso % (Auto) 1.6 H, Absolute Neuts (auto) 1.7 L, Absolute Lymphs (auto) 0.88, Nucleated RBC % 0, PT 13.5, INR 1.0, Sodium 143, Potassium 3.8, Chloride 103, Carbon Dioxide 22.7, Anion Gap 17 H, BUN 5, Creatinine 0.75, Estim Creat Clear Calc 129.21, Est GFR (MDRD) Non-Af 111, BUN/Creatinine Ratio 6.3 L, Glucose 98, Calcium 9.5, Magnesium 2.3 H, Total Bilirubin 0.70, Direct Bilirubin 0.36 H, AST 190 H, ALT 126 H, Alkaline Phosphatase 54, Total Protein 7.9, Albumin 4.9, Globulin 3.0, Ethyl Alcohol 347.0 H* 07/05/25 23:48: Urine Opiates Screen NEGATIVE, U Buprenorphine Qual NEGATIVE, Ur Oxycodone Screen NEGATIVE, Urine Methadone Screen NEGATIVE, Urine Fentanyl Screen NEGATIVE, Ur Barbiturates Screen NEGATIVE, Ur Phencyclidine Scrn NEGATIVE, Ur Amphetamines Screen NEGATIVE, U Benzodiazepines Scrn NEGATIVE, Urine Cocaine Screen NEGATIVE, U Cannabinoids Screen PRESUMPTIVE POSITIVE Imaging Radiology Impression Chest X-Ray 07/05/25 23:35 IMPRESSION: No acute pulmonary disease. Reading Location: [id number] Assessment & Plan Assessment/Plan (1) Admitted to alcohol detoxification center: PLAN: Plan The patient is a 50 y/o M w/ PMHx: Tobacco use, Polysubstance abuse, EtOH abuse (8-9, 24 ounce beers daily) with chronic alcoholic associated transaminitis and chronic thrombocytopenia/neutropenia secondary to EtOH abuse, FRANKLIN, Asthma, Hx TIA, HTN, HLD, Seizure disorder who presents to [facility] ED on 07/06/2025 with history of persistent heavy alcohol use over the last at least 6 months reportedly drinking at least 8-9, 24 ounce beers daily with last alcohol intake prior to ED arrival with request for alcohol detoxification assistance. #1. Acute EtOH Withdrawal complicated by underlying history of chronic alcoholic transaminitis, chronic thrombocytopenia and neutropenia: Will admit to MS, routine labs obtained in the ED upon presentation as noted. Given interest in sobriety, will initiate and continue on protocol with taper course of Phenobarbital, as needed gabapentin, Catapres, Bentyl, Vistaril, IV fluids, IV antiemetics, Tylenol as needed for pain. Will consult Case management for assistance for transition to next level of rehabilitation care. Mag in the ED already obtained and noted to be normal range, phos pending. Maintain on CIWA protocol concurrently. #2. History of polysubstance abuse: Patient with previous history of polysubstance abuse, UDS with only cannabis, strongly encourage clean status. #3. Hypertension: Noted history, BP with elevated diastolic, will trend to clarify medications however in the interim we will maintain on as needed IV hydralazine. #4. Hyperlipidemia: Per current list on a medication, will defer to outpatient. #5. History of TIA: Given thrombocytopenia will defer antiplatelets at this time but strongly encouraged follow-up outpatient, attempted to clarify hypertensive medication, not currently listed on a statin either, will need early PCP follow-up. #6. Seizure disorder: Suspect likely related in the past with alcohol withdrawal clarifying. #7. Chronic asthma: Per current list not on any chronic regimen, will have as needed albuterol, encouraged tobacco cessation. #8. Obesity: Weight loss and lifestyle changes encouraged. #9. Tobacco Abuse: Encouraged cessation, inpatient consultation per RT, NR if desired. #10. FRANKLIN: CPAP nightly will be encouraged. #11. DVT prophylaxis: Low risk for type of presentation, encourage ambulation. Charges/Coding Visit Charges Inpatient E&M: 31379 Init Hosp L3
[2025-07-06] MEDS: Lactated Ringers 1,000 ML 125 ML IV (02:35)
[2025-07-06] MEDS: Thiamine Hydrochloride 100 MG Tablet PO (10:09)
[2025-07-06] MEDS: Nicotine (PBKC) 21 MG Patch TD (10:09)
--- NOTE | 2025-07-06 13:32 | ADDICTION ---
This ticket writer met with PT to conduct ASAM, MSE, AUDIT, DUDIT assessments and to plan for d/c. PT A+Ox4 and participated actively. All assessments completed.Pt reports he does not know what he wants to do yet, he just can't keep doing this. I recommended residential treatment due to his previous hx, level of use, and hx of relapse shortly after detox. He reports he want to think about it and will let me know by tomorrow.
[2025-07-06] MEDS: 0.9% Saline Lock 10 ML Syringe IV ×2 (15:23→22:22)
[2025-07-07] VITALS (7 sets, daily range): BP systolic 106–124; BP diastolic 49–88; PULSE 66–93; RESP 16–18; TEMP 36.4–36.9; O2SAT 94–100
[2025-07-07] MEDS: hydrOXYzine PAM 25 MG Capsule 50 MG PO ×2 (05:53→15:45)
[2025-07-07] MEDS: Thiamine Hydrochloride 100 MG Tablet PO (09:50)
[2025-07-07] MEDS: Nicotine (PBKC) 21 MG Patch TD (09:51)
--- NOTE | 2025-07-07 10:02 | PCM.PN.HOSP ---
Subjective Subjective CIWA score 0, met with 180 yesterday discussed residential placement Objective Data Objective Data Vital Signs: Vital Signs Temp Pulse Resp BP Pulse Ox O2 Del Method 97.6 F L 93 16 106/49 L 94 Room Air 07/07/25 09:11 07/07/25 09:11 07/07/25 09:11 07/07/25 09:11 07/07/25 09:11 07/07/25 09:11 Oxygen Delivery Method Room Air Weight: 192 lb 7.417 oz Body Mass Index (BMI) 28.4 Intake & Output: Intake and Output for Last 24 Hours 07/06/25 07/07/25 07/08/25 03:59 03:59 02:59 Intake Total 1800 / 1800 600 / 600 Balance 1800 / 1800 600 / 600 Lab / Micro Data 07/05/25 23:25 07/05/25 23:25 Physical Exam Narrative General: Alert, Oriented x3, Cooperative, No apparent distress HEENT: Atraumatic, PERRLA, EOMI, Normocephalic Oral: Moist Mucosa Neck: Supple, No JVD Lungs: Clear to auscultation, Normal air movement, No rhonchi, No wheeze, No rales Cardiovascular: Regular rate, Regular Rhythm, Normal S1, Normal S2, No murmurs Abdomen: Soft, Non Tender, Non-Distended, No Hepato-splenomegaly Extremities: No edema, Capillary Refill Less than 3 Seconds Skin: No rashes, No breakdown Musculoskeletal: No Tenderness to Palpation of Joints or Extremities Neurological: No focal neurological deficits, moves all extremities Psych/Mental Status: Normal Affect, Appropriate Assessment & Plan Assessment/Plan (1) Admitted to alcohol detoxification center: PLAN: Plan 1. Alcohol withdrawal/polysubstance abuse/chronically elevated LFTs with chronic thrombocytopenia ? Continue with the alcohol withdrawal protocol ? Will have him follow-up with 182 to determine disposition ? Recommend cessation of tobacco and other drug use ? Platelets are always chronically low likely related to any liver disease from his drinking ? I do recommend outpatient follow-up with GI DVT: Ambulation Charges/Coding Visit Charges Inpatient E&M: 56916 Subs Hosp L2
--- NOTE | 2025-07-07 11:48 | ADDICTION ---
Pt reports that he would like to do outpatient treatment as of now. He recognizes that he is high risk for relapse by not seeking inpatient tx but would like to speak to his boss to discuss time off. Clinician gave pt her card if he decides to go to inpatient tx.
[2025-07-07] MEDS: Ensure Plus High Protein 120 ML LIQUID PO ×2 (12:43→17:14)
[2025-07-08 02:07] VITALS: BP 143/100; PULSE 98; RESP 20; TEMP 36.8; O2SAT 98
[2025-07-08] MEDS: hydrOXYzine PAM 25 MG Capsule 50 MG PO (02:10)
[2025-07-08 05:55] VITALS: BP 119/84; PULSE 78; RESP 18; TEMP 36.7; O2SAT 98
[2025-07-08 08:37] VITALS: BP 118/88; PULSE 98; RESP 18; TEMP 36.4; O2SAT 98
[2025-07-08] MEDS: Thiamine Hydrochloride 100 MG Tablet PO (08:42)
--- NOTE | 2025-07-08 08:48 | DCINST_ITS ---
Discharge Instructions
--- NOTE | 2025-07-08 08:48 | PCM.DC ---
Discharge Instructions DC O2, CPAP, BIPAP needs Home O2 Discharge instructions: No Dressing / Incision Discharge Activity: Return to Normal Activity Dressing / Incision Call your doctor if you observe: Fever of 101 or Higher, Shortness of breath, Dizziness, Fainting spells, Swelling in the ankles, Chest pain and Increased palpitations (irregular heartbeat) Follow Up Care Test Results: Test results from this visit will be discussed in further detail at your follow-up appointment, if applicable. Discharge Plan Admission Admit Date/Time: 07/06/25 00:57 Attending Provider: Alli Wood Primary Care Provider: Colin Santana Consulting Providers: Myra Hunt Discharge Orders/Prescriptions Prescriptions: No Action NK Referrals / Follow Up: Colin Santana MD [Primary Care Provider, Medical] - Within 1 Week Disposition Disposition (needs filled in before D/C Order can be placed): Home, Self Care
--- NOTE | 2025-07-08 11:36 | PCM.DC.SUM ---
Providers Date of Admission: 07/06/25 Primary Care Physician: Dr. Colin Santana MD Reason For Visit: ETOH DETOXIFICATION Diagnosis Discharge Diagnosis (1) Admitted to alcohol detoxification center: Status: Acute Medications at Discharge Home Medications NK 07/05/25 Hospital Course Operations None Procedures None Summary of Care Provided Minutes Spent on Discharge: 33 Hospital Course: Per HPI: The patient is a 50 y/o M w/ PMHx: Tobacco use, Polysubstance abuse, EtOH abuse (8-9, 24 ounce beers daily) with chronic alcoholic associated transaminitis and chronic thrombocytopenia/neutropenia secondary to EtOH abuse, FRANKLIN, Asthma, Hx TIA, HTN, HLD, Seizure disorder who presents to [facility] ED on 07/06/2025 with history of persistent heavy alcohol use over the last at least 6 months reportedly drinking at least 8-9, 24 ounce beers daily with last alcohol intake prior to ED arrival with request for alcohol detoxification assistance. He notes he had been trying to detox himself but upon awakening this evening prior to ED arrival he was tremulous and felt nauseous prompting him to drink 24 ounce beer and request his friend to take him to the ED for detoxification assessment. Currently he feels improved but is still mildly tremulous with tactile disturbances and mild nausea. Workup in the ED included T98, heart rate 96, BP 137/99, respiratory rate 19, 100% on room air with most recent repeat vitals T98, heart rate 83, BP 127/96, respiratory rate 16, 94% on room air, CBC with WC 3.1, human 16, platelet 58 without marked shift with ANC however 1.7, unremarkable coags, CMP with D bili 0.36, AST/ALT 190/126 otherwise not marked appearing, magnesium per ED 2.3, UDS with presumptive positive cannabis, ethyl alcohol level 347, chest x-ray with no acute cardiopulmonary findings, EKG with sinus rhythm with no acute evidence of ischemia. Hospital Course: 1. Alcohol withdrawal/polysubstance abuse/chronically elevated LFTs with chronic thrombocytopenia?50-year-old male presented to the hospital requesting detox from alcohol. He has been having heavy alcohol use over the last 6 months drinking at least 8 to 924 ounce beers. He was approached for the possibility of an inpatient rehab however he wants to work it out with his work first there is 1 to lose his job if he were to go inpatient. He has been a CIWA of 0 over the last 48 hours and so I discussed with him the possibility of an early discharge versus waiting until tomorrow if he would like to be able to talk to his boss and determine inpatient rehab discharge before going home. He has elected to discharge home and he expressed understanding of the risks and benefits of going home. I do recommend he follow-up with his PCP for monitoring of his LFTs and his thrombocytopenia. Physical Exam Narrative General: Alert, Oriented x3, Cooperative, No apparent distress HEENT: Atraumatic, PERRLA, EOMI, Normocephalic Oral: Moist Mucosa Neck: Supple, No JVD Lungs: Clear to auscultation, Normal air movement, No rhonchi, No wheeze, No rales Cardiovascular: Regular rate, Regular Rhythm, Normal S1, Normal S2, No murmurs Abdomen: Soft, Non Tender, Non-Distended, No Hepato-splenomegaly Extremities: No edema, Capillary Refill Less than 3 Seconds Skin: No rashes, No breakdown Musculoskeletal: No Tenderness to Palpation of Joints or Extremities Neurological: No focal neurological deficits, moves all extremities Psych/Mental Status: Normal Affect, Appropriate Weight / BMI Weight Weight: 192 lb 7.417 oz Body Mass Index (BMI) 28.4 ABG / Lab / Microbiology Data 07/05/25 23:25 07/05/25 23:25 D/C Instructions Call your doctor if you observe: Fever of 101 or Higher, Shortness of breath, Dizziness, Fainting spells, Swelling in the ankles, Chest pain and Increased palpitations (irregular heartbeat) DC O2, CPAP, BIPAP Needs Home O2 Discharge instructions: No Meaningful Use Info Meaningful Use Meaningful Use Diagnoses (Choose all that apply): None applicable Discharge Plan Admission Admit Date/Time: 07/06/25 00:57 Attending Provider: Alli Wood Primary Care Provider: Colin Santana Consulting Providers: Myra Hunt Discharge Orders/Prescriptions Prescriptions: No Action NK Referrals / Follow Up: Colin Santana MD [Primary Care Provider, Medical] - Within 1 Week Disposition Disposition (needs filled in before D/C Order can be placed): Home, Self Care Charges/Coding Visit Charges Inpatient E&M: 43018 Disch Hosp >30min
== END 2025-07-08 09:18 | disposition home or self-care (01) | DRG 897 ==
LOC: ED 07-06 00:27 → MS3 07-06 01:00
PROVIDERS: Admitting Provider Family Medicine; Emergency Provider Emergency Medicine; PCP Family Medicine; Visit Provider Family Medicine
DX: F10.239 Alcohol dependence with withdrawal, unspecified (principal); D69.6 Thrombocytopenia, unspecified; D70.9 Neutropenia, unspecified; I10 Essential (primary) hypertension; E66.9 Obesity, unspecified; F17.210 Nicotine dependence, cigarettes, uncomplicated; G47.33 Obstructive sleep apnea (adult) (pediatric); E78.5 Hyperlipidemia, unspecified; Z86.73 Personal history of transient ischemic attack (TIA), and cerebral infarction without residual deficits; Z79.899 Other long term (current) drug therapy; Z68.29 Body mass index [BMI] 29.0-29.9, adult; Y90.8 Blood alcohol level of 240 mg/100 ml or more
CPT/HCPCS: 71045; 80048; 80076; 80307; 82077; 83735; 84100; 85025; 85610; 93005; 97802; 99283; A4216